=== PATIENT | male | born 1960 ===

== ENCOUNTER 2019-12-30 16:02 | Inpatient (IN) ==
[2019-12-30 22:04] LABS: BASOPHILS % (AUTO) 0.2 % (0.2-1.0); HEMATOCRIT 49.3 % (42.0-54.0); HEMOGLOBIN 16.1 g/dL (13.5-18.0); LYMPHOCYTES # (AUTO) 0.7 X10^3/uL (1.3-2.9); MEAN CORPUSCULAR HEMOGLOBIN 31.3 pg (27.0-34.0); MEAN CORPUSCULAR HGB CONC 32.6 g/dL (33.0-35.0); MEAN PLATELET VOLUME 11.2 fL (7.4-11.0); MONOCYTES # (AUTO) 1.4 x10^3/uL (0.3-0.8); MONOCYTES % (AUTO) 7.6 % (0.0-13.0); NEUTROPHILS # (AUTO) 15.9 x10^3/uL (2.2-4.8); NEUTROPHILS % (AUTO) 88.2 % (42.0-75.0); PLATELET COUNT 225 X10^3/uL (150.0-450.0); RED BLOOD COUNT 5.13 X10^6/uL (4.7-6.0); RED CELL DISTRIBUTION WIDTH 13.3 % (11.6-16.5); WHITE BLOOD COUNT 18.1 X10^3/uL (3.6-10.0)
[2019-12-30 22:20] LABS: ALANINE AMINOTRANSFERASE 29 Units/L (12-78); ALBUMIN 2.3 g/dL (3.4-5.0); ALKALINE PHOSPHATASE 79 Units/L (46-116); ASPARTATE AMINO TRANSFERASE 68 Units/L (15-37); BLOOD UREA NITROGEN 39 mg/dL (7-18); CALCIUM 9.4 mg/dL (8.5-10.1); CARBON DIOXIDE 34.4 mmol/L (21-32); COR CA(FOR HYPOALB) 10.8 mg/dL (8.5-10.1); COR NA(FOR HYPERGLY) 162 mmol/L (136-145); CREATININE 1.26 mg/dL (0.70-1.30); TOTAL PROTEIN 8.3 g/dL (6.4-8.2); eGFR NON BLACK RACES > 60 (>60)
[2019-12-30 22:22] LABS: SODIUM 161 mmol/L (136-145)
[2019-12-30 22:23] LABS: CHLORIDE 120 mmol/L (98-107)
[2019-12-30 23:15] VITALS: BMI 18.7
[2019-12-30] MEDS ORDERED: ROCEPHIN VIAL 1 GRAM ONE (23:40)
[2019-12-30] MEDS ORDERED: D5W 1000 ML IV 1,000 ML IV ONE (23:41)
[2019-12-30] MEDS ORDERED: ZOSYN VIAL 4.5 GRAMS IV ONE (23:41)
[2019-12-30] MEDS ORDERED: NS 100 ML IV + SPIKE MINIBAG* 100 ML IV ONE (23:41)
[2019-12-30] MEDS: ZOSYN VIAL 4.5 GRAMS 4.5 G in NS 100 ML IV + SPIKE MINIBAG* 100 ML IV SCH (23:45)
[2019-12-30] MEDS: ROCEPHIN VIAL 1 GRAM IM ONE (23:45)
[2019-12-30 23:53] LABS: ABG BASE EXCESS 11.4 mmol/L (-2.0-2.0)
[2019-12-30 23:54] LABS: ABG HCO3 36.5 mmol/L (22-26)
[2019-12-30] MEDS: DUONEB 0.5 MG/3 MG (3 mL) NEB SCH (23:55)
[2019-12-31] MEDS ORDERED: ROCEPHIN VIAL 1 GRAM 1 G in NS 100 ML IV + SPIKE MINIBAG* 100 ML IV SCH ×2
[2019-12-31] MEDS ORDERED: D5W 1000 ML IV 1,000 ML IV ONE
[2019-12-31 00:28] LABS: BILIRUBIN,URINE NEGATIVE (NEGATIVE); BLOOD/HEMOGLOBIN,URINE 2+ (NEGATIVE); GLUCOSE, URINE NEGATIVE (NEGATIVE); KETONES,URINE 1+ (NEGATIVE); LEUKOCYTE ESTERASE ,URINE NEGATIVE (NEGATIVE); NITRITES,URINE NEGATIVE (NEGATIVE); PROTEIN,URINE 2+ (NEGATIVE); UROBILINOGEN,URINE NORMAL (NORMAL)
[2019-12-31 00:38] LABS: APPEARANCE,URINE CLEAR (CLEAR); BACTERIA,URINE TRACE /HPF (NEGATIVE); COLOR,URINE YELLOW (YELLOW); RBC,URINE 0-2 /HPF (0-3); SQUAMOUS EPITHELIAL CELL,UR MODERATE /HPF (NEGATIVE)
--- NOTE | 2019-12-31 01:20 | CT ---
STUDY: CT HEAD WITHOUT IV CONTRASTCOMPARISON: NoneTECHNIQUE: axial images were acquired of the head without IV contrast. Coronal and sagittal images were provided. All images were reviewed in a variety of windows and levels.LIMITATIONS: Please note that CT has low sensitivity and accuracy for identifying acute infarction. In addition, there are portions of the brain that are affected by beam hardening artifact which further greatly limits identification of an acute infarct.RADIATION REDUCTION TECHNIQUE: Automated exposure control, Adjustment of the mA and/or kV according to patient size, or iterative reconstruction techniques were used.HISTORY: patient had a fall on 12/19 which resulted in a hematoma on his head, patient's behavior was affected resulting in sending the pt to the ED in [facility], CT was negative. Pt was placed on isolation to end 01/04/2020 due to "comm TRUNCATED ...FINDINGS: Exam is markedly limited due to patient motion.There is diffuse cerebral atrophy with a regional distribution of low attenuation along the periventricular white matter most likely representing small vessel ischemic changes which are to a degree that would be considered within normal limits for the patient's stated age.There is no definitive evidence of an acute intracranial bleed.There is no evidence of a mass or midline shift.There is no evidence of an extra-axial fluid collection.The randall-white matter differentiation is within normal limits.The visualized bones are grossly unremarkable.The visualized sinuses are clear.The mastoid air cells are well-aerated.IMPRESSION: Exam is markedly limited due to patient motion.1. INVOLUTIONAL CHANGES ARE PRESENT WITH FINDINGS SUGGESTING SMALL VESSEL ISCHEMIC DISEASE WHICH IS TO A DEGREE THAT WOULD BE CONSIDERED WITHIN NORMAL LIMITS FOR THE PATIENT'S STATED AGE.2. THERE IS NO DEFINITIVE EVIDENCE OF ACUTE INTRACRANIAL BLEED.Electronically signed by: Sumanth Wheatley (Dec 31, 2019 01:19:09)
[2019-12-31] MEDS: ROCEPHIN VIAL 1 GRAM IM ONE (01:25)
--- NOTE | 2019-12-31 01:25 | RAD ---
STUDY: KUBCOMPARISON: NoneHISTORY: NG TUBE PLACEMENTFINDINGS:The tip and side port of the enteric tube is seen above the diaphragm in the distal esophagus.IMPRESSION:The tip and side port of the enteric tube is seen above the diaphragm in the distal esophagus. Please consider further advancing the enteric tube in repeat radiograph for confirmation of positioning.Electronically signed by: Sumanth Wheatley (Dec 31, 2019 01:24:30)
[2019-12-31] MEDS: DUONEB 0.5 MG/3 MG (3 mL) NEB SCH ×5 (01:45→20:20)
[2019-12-31] MEDS: D5W 1000 ML IV 1,000 ML IV SCH ×2 (01:50→13:00)
--- NOTE | 2019-12-31 05:43 | RAD ---
STUDY: KUBCOMPARISON: NoneHISTORY: NG TUBE PLACEMENT (2)FINDINGS:The tip and side port of the enteric tube is seen below the diaphragm in the region of the stomach.IMPRESSION:THE TIP AND SIDE PORT OF THE ENTERIC TUBE IS IN THE REGION OF THE STOMACH.Electronically signed by: Sumanth Wheatley (Dec 31, 2019 05:42:01)
[2019-12-31] MEDS: ZOSYN VIAL 4.5 GRAMS 4.5 G in NS 100 ML IV + SPIKE MINIBAG* 100 ML IV SCH ×3 (05:51→23:00)
--- NOTE | 2019-12-31 06:11 | RAD ---
HISTORYCerebellar ataxiaSTUDYChest AP portableCOMPARISONNoneFINDINGSThere is a nasogastric tube with its tip in the distal esophagus. Advancement is recommended for optimal performance. The heart is within normal limits in size. The mariah are normal. The lungs are hyperinflated consistent with COPD. Interstitial lung changes and some peribronchial infiltrates are present in the retrocardiac area of the left lower lobe. No pleural effusions are identified. Bony thorax is unremarkable.IMPRESSIONNG tube tip in the distal esophagus. Advancement is recommendedHyperinflationLeft lower lobe infiltrateElectronically signed by: FLAVIO HENRY (Dec 31, 2019 06:10:16)
[2019-12-31] MEDS ORDERED: PHARMACY CONSULT LTC MEDICATIONS XX SCH (09:00)
[2019-12-31 09:21] LABS: BASOPHILS % (AUTO) 0.4 % (0.2-1.0); EOSINOPHILS % (AUTO) 0.1 % (0.9-2.9); HEMATOCRIT 47.6 % (42.0-54.0); HEMOGLOBIN 15.5 g/dL (13.5-18.0); LYMPHOCYTES # (AUTO) 0.9 X10^3/uL (1.3-2.9); LYMPHOCYTES % (AUTO) 6.1 % (21.0-51.0); MEAN CORPUSCULAR HEMOGLOBIN 31.5 pg (27.0-34.0); MEAN CORPUSCULAR HGB CONC 32.7 g/dL (33.0-35.0); MEAN CORPUSCULAR VOLUME 96.4 fL (80.0-100.0); MEAN PLATELET VOLUME 10.8 fL (7.4-11.0); MONOCYTES # (AUTO) 1.4 x10^3/uL (0.3-0.8); MONOCYTES % (AUTO) 10.1 % (0.0-13.0); NEUTROPHILS # (AUTO) 11.7 x10^3/uL (2.2-4.8); NEUTROPHILS % (AUTO) 83.3 % (42.0-75.0); PLATELET COUNT 175 X10^3/uL (150.0-450.0); RED BLOOD COUNT 4.93 X10^6/uL (4.7-6.0); RED CELL DISTRIBUTION WIDTH 13.2 % (11.6-16.5)
[2019-12-31 09:27] LABS: BLOOD UREA NITROGEN 34 mg/dL (7-18); CARBON DIOXIDE 37.6 mmol/L (21-32); COR NA(FOR HYPERGLY) 156 mmol/L (136-145); CREATININE 1.26 mg/dL (0.70-1.30); eGFR NON BLACK RACES > 60 (>60)
[2019-12-31 09:32] LABS: ALANINE AMINOTRANSFERASE 25 Units/L (12-78); ALBUMIN 2.1 g/dL (3.4-5.0); ALKALINE PHOSPHATASE 70 Units/L (46-116); ASPARTATE AMINO TRANSFERASE 56 Units/L (15-37); COR CA(FOR HYPOALB) 10.5 mg/dL (8.5-10.1); TOTAL PROTEIN 7.4 g/dL (6.4-8.2)
[2019-12-31 09:46] LABS: CHLORIDE 116 mmol/L (98-107); SODIUM 155 mmol/L (136-145)
--- NOTE | 2019-12-31 09:56 | RAD ---
HISTORYRE INSERTION OF NG TUBE. VERIFY PLACEMENTSTUDYKUBCOMPARISONNoneTECHNIQUEAbdomen KUB of the upper abdomen and chestFINDINGSNG tube in good position. Left lower lobe infiltrate again noted. Lung hyperexpansion.IMPRESSIONNG tube in good position.Electronically signed by: Mainor Mayers (Dec 31, 2019 09:55:20)
[2019-12-31] MEDS ORDERED: ZOLOFT PO ONE (17:34)
[2019-12-31] MEDS ORDERED: ATIVAN TAB 0.5 MG ONE (17:34)
[2019-12-31] MEDS ORDERED: OFIRMEV IV 1000 MG VIAL 1,000 MG/100 ML VIAL IV ONE (17:35)
--- NOTE | 2019-12-31 17:36 | DR.H&P ---
H&P - History & Physical for Day of: H&P Date: 12/30/19 - Chief Complaint Chief Complaint: AMS, DEHYDRATION - History of Present Illness History of Present Illness: PT IS 59BM DIRECT ADMIT FROM [place] WITH AMS, HYPERNATREMIA, PNEUMONIA FAILED OUTPT TREATMENT. PT HAD NEGATIVE COVID SWAB PRIOR TO THIS ADMISSION. PT HAD PMH OF CVA AND HYPERTENSION. PT NA WAS 160S ON OUTPT BASIS. PT ADMITTED TO ICU FOR ACUTE ILLNESS - Past Medical History Past Medical History: Anxiety, Arthritis, CVA, Hypertension - Social History Does patient currently use any type of tobacco product: No Have you used tobacco products in the last 12 months: No Type of Tobacco Use: None Does any household member use tobacco: No Alcohol Use: None Drug Use: None - Medications Home Medications: No Known Drug Allergies Allergy (Verified 12/30/19 16:19) CONTINUE taking the following medications azithromycin [Zithromax] 500 mg PO HS 12/30/19 [History] baclofen 10 mg PO TID 12/30/19 [History] buspirone 5 mg PO TID 12/30/19 [History] clonidine HCl 0.1 mg PO BID 12/30/19 [History] divalproex 500 mg PO TID 12/30/19 [History] fluoxetine 20 mg PO DAILY 12/30/19 [History] levofloxacin [Levaquin] 250 mg PO HS 12/30/19 [History] olanzapine 2.5 mg PO DAILY 12/30/19 [History] - Review of Systems Constitutional: Other (AMS) Eyes: No Symptoms Reported ENT: No Symptoms Reported Respiratory: Shortness of Breath Cardiovascular: No Symptoms Reported Gastrointestinal: Other (POOR PO INTAKE) Genitourinary: Incontinence Musculoskeletal: No Symptoms Reported Skin: No Symptoms Reported Neurological: Weakness, Confusion - Physical Exam Vital Signs: Temperature 98.4 F Pulse Rate [Brachial] 93 Pulse Rate 103 Respiratory Rate 39 Blood Pressure [Right Arm] 140/87 Blood Pressure 114/77 O2 Sat by Pulse Oximetry 91 Oriented: Not Oriented Eyes: Normal Ear: Normal Nose: Normal Throat: Dry Respiratory: Diminished Throughout Cardiovascular: Tachycardia : Normal Auscultation: Bowel Sounds: Normal Palpation: Normal Tenderness: Normal Skin: Decreased Turgur Musculoskeletal: Motor Deficit Speech Pattern: Aphasic - Assessment/Plan (1) Hyperosmolality and hypernatremia Status: Acute Plan: ADMIT, BC ON ADMISSION. CXR, CT HEAD, CE AND EKG ON ADMISSION. ABG, DW5, NG TUBE FOR WATER REPLACEMENT. WOLFE CATH, STRICT I&OS. SEIZURE PRECAUTIONS (2) AMS (altered mental status) Status: Acute (3) Pneumonia Status: Acute - Allergies Allergies/Adverse Reactions: Allergies Allergy/AdvReac Type Severity Reaction Status Date / Time No Known Drug Allergies Allergy Verified 12/30/19 16:19
[2019-12-31] MEDS: ZOLOFT PO SCH (17:45)
[2019-12-31] MEDS: ATIVAN TAB 0.5 MG PO PRN (17:46)
[2019-12-31] MEDS: OFIRMEV IV 1000 MG VIAL 1,000 MG/100 ML VIAL IV PRN (17:46)
[2019-12-31] MEDS: ROCEPHIN VIAL 1 GRAM 1 G in NS 100 ML IV + SPIKE MINIBAG* 100 ML IV SCH (22:09)
[2020-01-01] MEDS: D5W 1000 ML IV 1,000 ML IV SCH ×2 (01:42→19:00)
[2020-01-01] MEDS ORDERED: VISTARIL PO PRN (02:35)
[2020-01-01] MEDS ORDERED: VISTARIL PO ONE (02:37)
[2020-01-01 04:55] LABS: BASOPHILS % (AUTO) 0.1 % (0.2-1.0); EOSINOPHILS # (AUTO) 0.1 x10^3/uL (0.0-0.2); EOSINOPHILS % (AUTO) 0.5 % (0.9-2.9); HEMOGLOBIN 14.1 g/dL (13.5-18.0); LYMPHOCYTES # (AUTO) 1.1 X10^3/uL (1.3-2.9); LYMPHOCYTES % (AUTO) 8.3 % (21.0-51.0); MEAN CORPUSCULAR HEMOGLOBIN 31.4 pg (27.0-34.0); MEAN CORPUSCULAR HGB CONC 32.7 g/dL (33.0-35.0); MEAN CORPUSCULAR VOLUME 96.3 fL (80.0-100.0); MEAN PLATELET VOLUME 11.5 fL (7.4-11.0); MONOCYTES # (AUTO) 1.1 x10^3/uL (0.3-0.8); MONOCYTES % (AUTO) 8.4 % (0.0-13.0); NEUTROPHILS # (AUTO) 10.9 x10^3/uL (2.2-4.8); NEUTROPHILS % (AUTO) 82.7 % (42.0-75.0); PLATELET COUNT 155 X10^3/uL (150.0-450.0); RED BLOOD COUNT 4.47 X10^6/uL (4.7-6.0); RED CELL DISTRIBUTION WIDTH 12.9 % (11.6-16.5); WHITE BLOOD COUNT 13.2 X10^3/uL (3.6-10.0)
[2020-01-01 05:17] LABS: ALANINE AMINOTRANSFERASE 25 Units/L (12-78); ALBUMIN 1.9 g/dL (3.4-5.0); ALKALINE PHOSPHATASE 77 Units/L (46-116); ASPARTATE AMINO TRANSFERASE 45 Units/L (15-37); BLOOD UREA NITROGEN 23 mg/dL (7-18); CALCIUM 8.5 mg/dL (8.5-10.1); CARBON DIOXIDE 34.8 mmol/L (21-32); CHLORIDE 108 mmol/L (98-107); COR CA(FOR HYPOALB) 10.2 mg/dL (8.5-10.1); COR NA(FOR HYPERGLY) 146 mmol/L (136-145); SODIUM 146 mmol/L (136-145); TOTAL PROTEIN 6.8 g/dL (6.4-8.2); eGFR NON BLACK RACES > 60 (>60)
[2020-01-01] MEDS: ZOSYN VIAL 4.5 GRAMS 4.5 G in NS 100 ML IV + SPIKE MINIBAG* 100 ML IV SCH ×3 (05:27→21:02)
[2020-01-01] MEDS: ATIVAN TAB 0.5 MG PO PRN ×2 (05:35→21:02)
--- NOTE | 2020-01-01 07:30 | RAD ---
HISTORYPNEUMONIASTUDYCHEST, 1 [id number]/02/2020TECHNIQUEAP view of the chestFINDINGSNG tube courses below the visualized field of view. Cardiac and mediastinal contours are normal. Stable patchy left base opacity. No large pleural effusion or pneumothorax.IMPRESSIONNo significant change. Stable patchy left base opacity.Electronically signed by: Mainor Mayers (Jan 01, 2020 07:28:50)
[2020-01-01] MEDS: ZOLOFT PO SCH (08:02)
[2020-01-01] MEDS: PROzac PO SCH (08:40)
[2020-01-01] MEDS ORDERED: DEPAKOTE D.R. TAB PO SCH (09:00)
[2020-01-01] MEDS: DUONEB 0.5 MG/3 MG (3 mL) NEB SCH ×4 (09:15→21:09)
[2020-01-01] MEDS: PATIENT'S HOME MEDICATION PO SCH ×3 (11:00→21:02)
[2020-01-01] MEDS: BUSPAR PO SCH ×2 (14:00→21:02)
[2020-01-01] MEDS: LIORESAL PO SCH ×2 (14:00→21:02)
[2020-01-01] MEDS: ROCEPHIN VIAL 1 GRAM 1 G in NS 100 ML IV + SPIKE MINIBAG* 100 ML IV SCH (21:02)
[2020-01-02] MEDS: D5W 1000 ML IV 1,000 ML IV SCH ×3 (00:30→23:01)
[2020-01-02 04:45] LABS: BASOPHILS % (AUTO) 0.1 % (0.2-1.0); EOSINOPHILS % (AUTO) 0.3 % (0.9-2.9); HEMATOCRIT 42.1 % (42.0-54.0); LYMPHOCYTES # (AUTO) 0.8 X10^3/uL (1.3-2.9); LYMPHOCYTES % (AUTO) 5.4 % (21.0-51.0); MEAN CORPUSCULAR HEMOGLOBIN 31.9 pg (27.0-34.0); MEAN CORPUSCULAR HGB CONC 33.2 g/dL (33.0-35.0); MEAN PLATELET VOLUME 11.4 fL (7.4-11.0); MONOCYTES # (AUTO) 1.4 x10^3/uL (0.3-0.8); MONOCYTES % (AUTO) 9.1 % (0.0-13.0); NEUTROPHILS # (AUTO) 13.4 x10^3/uL (2.2-4.8); NEUTROPHILS % (AUTO) 85.1 % (42.0-75.0); PLATELET COUNT 145 X10^3/uL (150.0-450.0); RED BLOOD COUNT 4.38 X10^6/uL (4.7-6.0); RED CELL DISTRIBUTION WIDTH 13.2 % (11.6-16.5); WHITE BLOOD COUNT 15.8 X10^3/uL (3.6-10.0)
[2020-01-02 04:58] LABS: ALANINE AMINOTRANSFERASE 19 Units/L (12-78); ALBUMIN 1.6 g/dL (3.4-5.0); ALKALINE PHOSPHATASE 69 Units/L (46-116); ASPARTATE AMINO TRANSFERASE 27 Units/L (15-37); BLOOD UREA NITROGEN 11 mg/dL (7-18); CALCIUM 8.3 mg/dL (8.5-10.1); CARBON DIOXIDE 35.3 mmol/L (21-32); CHLORIDE 105 mmol/L (98-107); COR CA(FOR HYPOALB) 10.2 mg/dL (8.5-10.1); CREATININE 0.96 mg/dL (0.70-1.30); SODIUM 142 mmol/L (136-145); TOTAL PROTEIN 6.6 g/dL (6.4-8.2); eGFR NON BLACK RACES > 60 (>60)
[2020-01-02 05:16] LABS: ABG BASE EXCESS 10.4 mmol/L (-2.0-2.0)
[2020-01-02 05:17] LABS: ABG ALLEN TEST POS; ABG HCO3 35.1 mmol/L (22-26)
[2020-01-02] MEDS: LIORESAL PO SCH ×3 (05:44→23:01)
[2020-01-02] MEDS: BUSPAR PO SCH ×3 (05:44→23:01)
[2020-01-02] MEDS: ZOSYN VIAL 4.5 GRAMS 4.5 G in NS 100 ML IV + SPIKE MINIBAG* 100 ML IV SCH ×3 (05:45→23:01)
[2020-01-02] MEDS: PATIENT'S HOME MEDICATION PO SCH ×3 (05:45→23:01)
--- NOTE | 2020-01-02 06:06 | RAD ---
HISTORYFollow-up pneumoniaSTUDYChest AP [id number]/04/2020FINDINGSThere is a nasogastric tube coursing below the left hemidiaphragm . Its tip is not visible. The heart is within normal limits in size. The mariah are normal. The right l curtis and left upper lung roy are clear. Increasing left lower lobe infiltrate is noted. No pleural effusions are identified. Bony thorax is unremarkable.IMPRESSIONIncreasing left lower lobe infiltrate when compared with the prior examinationElectronically signed by: FLAVIO HENRY (Jan 02, 2020 06:05: 36)
[2020-01-02] MEDS: DUONEB 0.5 MG/3 MG (3 mL) NEB SCH ×4 (08:45→21:24)
[2020-01-02] MEDS: ZOLOFT PO SCH (09:58)
[2020-01-02] MEDS: PROzac PO SCH (09:58)
[2020-01-02] MEDS: ZITHROMAX INJ 500 MG VIAL 500 MG in D5W 250 ML IV 250 ML IV SCH (10:46)
--- NOTE | 2020-01-02 20:13 | RAD ---
HISTORYNG TUBE PLACEMENT CEREBELAR ATAXIA, [id number]/03/2020FINDINGSEvaluation of the abdomen demonstrates a normal bowel gas carlyle jay. No pathological soft tissue mass or calcification can be observed. The bony structures are lino ssly intact. There is a gastric tube in place with the tip seen along the proximal stomach.IMPRESSION Nonspecific gas pattern and a gastric tube in place with the tip in the proximal stomach.Electronical ly signed by: JAYY BURNETT (Jan 02, 2020 20:12:05)
--- NOTE | 2020-01-02 21:38 | RAD ---
HISTORYNG TUBE PLACEMENT CEREBELAR ATAXIA, [id number]/05/2020 at 7:41 a.m..FINDINGSEvaluation of the abdomen demonstrates a normal bowel gas pattern. No pathological soft tissue mass or calcification can be observed. The bony structures are grossly intact. There is a nasogastric tube in place with the distal portion the tube looped in the proximal stomach the tip in the fundus.IMPRESSIONGastric tube now looped in the proximal stomach with the tip along the fundus.Electronically signed by: JAYY BURNETT (Jan 02, 2020 21:36:56)
--- NOTE | 2020-01-02 22:27 | RAD ---
STUDY: KUBCOMPARISON: January 02, 2020HISTORY: NG TUBE PLACMENTFINDINGS:The tip of the enteric tube is seen coiled below the diaphragm in the region of the stomach.IMPRESSION:THE TIP OF THE ENTERIC TUBE IS IN THE REGION OF THE STOMACH.Electronically signed by: Sumanth Wheatley (Jan 02, 2020 22:26:24)
[2020-01-02] MEDS: ATIVAN TAB 0.5 MG PO PRN (23:01)
[2020-01-03 05:25] LABS: BASOPHILS % (AUTO) 0.2 % (0.2-1.0); EOSINOPHILS # (AUTO) 0.1 x10^3/uL (0.0-0.2); EOSINOPHILS % (AUTO) 0.4 % (0.9-2.9); HEMATOCRIT 41.7 % (42.0-54.0); HEMOGLOBIN 13.9 g/dL (13.5-18.0); LYMPHOCYTES # (AUTO) 0.6 X10^3/uL (1.3-2.9); LYMPHOCYTES % (AUTO) 4.5 % (21.0-51.0); MEAN CORPUSCULAR HEMOGLOBIN 31.3 pg (27.0-34.0); MEAN CORPUSCULAR HGB CONC 33.2 g/dL (33.0-35.0); MEAN CORPUSCULAR VOLUME 94.3 fL (80.0-100.0); MEAN PLATELET VOLUME 10.8 fL (7.4-11.0); MONOCYTES # (AUTO) 1.1 x10^3/uL (0.3-0.8); MONOCYTES % (AUTO) 8.1 % (0.0-13.0); NEUTROPHILS # (AUTO) 12.3 x10^3/uL (2.2-4.8); NEUTROPHILS % (AUTO) 86.8 % (42.0-75.0); PLATELET COUNT 166 X10^3/uL (150.0-450.0); RED BLOOD COUNT 4.42 X10^6/uL (4.7-6.0); RED CELL DISTRIBUTION WIDTH 12.9 % (11.6-16.5); WHITE BLOOD COUNT 14.2 X10^3/uL (3.6-10.0)
[2020-01-03 05:33] LABS: ALANINE AMINOTRANSFERASE 23 Units/L (12-78); ALBUMIN 1.5 g/dL (3.4-5.0); ALKALINE PHOSPHATASE 71 Units/L (46-116); ASPARTATE AMINO TRANSFERASE 32 Units/L (15-37); BLOOD UREA NITROGEN 12 mg/dL (7-18); CALCIUM 8.2 mg/dL (8.5-10.1); CARBON DIOXIDE 34.6 mmol/L (21-32); CHLORIDE 104 mmol/L (98-107); COR CA(FOR HYPOALB) 10.2 mg/dL (8.5-10.1); COR NA(FOR HYPERGLY) 141 mmol/L (136-145); CREATININE 0.85 mg/dL (0.70-1.30); SODIUM 141 mmol/L (136-145); TOTAL PROTEIN 6.5 g/dL (6.4-8.2); eGFR NON BLACK RACES > 60 (>60)
[2020-01-03] MEDS: ZOSYN VIAL 4.5 GRAMS 4.5 G in NS 100 ML IV + SPIKE MINIBAG* 100 ML IV SCH ×3 (06:16→21:58)
[2020-01-03] MEDS: BUSPAR PO SCH ×3 (06:16→21:57)
[2020-01-03] MEDS: LIORESAL PO SCH ×3 (06:16→21:57)
[2020-01-03] MEDS: PATIENT'S HOME MEDICATION PO SCH ×3 (06:16→21:57)
[2020-01-03] MEDS: D5W 1000 ML IV 1,000 ML IV SCH ×2 (06:17→15:56)
--- NOTE | 2020-01-03 07:45 | RAD ---
HISTORYPNEUMONIASTUDYCHEST, 1 [id number]/05/2020TECHNIQUEAP view of the chestFINDINGSCardiac and mediastinal contours appear normal. The NG tube is curled within the stomach. Stable left mid and lower lung airspace disease. No large pleural effusion. No pneumothorax.IMPRESSIONNo significant change.Electronically signed by: Mainor Mayers (Jan 03, 2020 07:44:14)
[2020-01-03] MEDS: ZOLOFT PO SCH (08:42)
[2020-01-03] MEDS: PROzac PO SCH (08:42)
[2020-01-03] MEDS: DUONEB 0.5 MG/3 MG (3 mL) NEB SCH ×4 (08:55→21:00)
[2020-01-03] MEDS: PULMICORT NEB TX 0.5 MG NEB SCH ×2 (08:55→21:00)
[2020-01-03] MEDS: OFIRMEV IV 1000 MG VIAL 1,000 MG/100 ML VIAL IV PRN (09:15)
[2020-01-03] MEDS: ZITHROMAX INJ 500 MG VIAL 500 MG in D5W 250 ML IV 250 ML IV SCH (09:45)
--- NOTE | 2020-01-03 18:41 | RAD ---
EXAM: ABDOMEN X-RAY (or KUB)HISTORY: Abdominal pain.TECHNIQUE: 1 viewCOMPARISON: None available.FINDINGS:Note: Exam degraded by patient rotation and partial exclusion of the left upper quadrant from [id number].A nasogastric tube is noted with the distal tip in the body of the stomach and the proximal sidehole at the gastroesophageal junction.Abundant fecal material is seen within the a distended rectum (partially imaged) which may represent constipation and possible fecal retention.Abundant air is seen within up to 6.5 cm dilated large bowel loops (proximal to the fecal column, which may represent obstipation and/or ileus.No gross organomegaly, free intraperitoneal air, or suspicious calcifications seen.IMPRESSION:1. A nasogastric tube is noted with the distal tip in the body of the stomach and the proximal sidehole at the gastroesophageal junction.2. Abundant fecal material is seen within the a distended rectum (partially imaged) which may represent constipation and possible fecal retention.3. Abundant air is seen within up to 6.5 cm dilated large bowel loops (proximal to the fecal column, which may represent obstipation and/or ileus.4. Recommend clinical correlation and appropriate followup evaluation (consider CT) as clinically warranted.Electronically signed by: Abundio Resendez (Jan 03, 2020 18:39:46)
[2020-01-03] MEDS: COLACE CAP 100 MG PO SCH (21:56)
[2020-01-04] MEDS: D5W 1000 ML IV 1,000 ML IV SCH (04:08)
[2020-01-04] MEDS: ZOSYN VIAL 4.5 GRAMS 4.5 G in NS 100 ML IV + SPIKE MINIBAG* 100 ML IV SCH ×3 (05:01→21:53)
[2020-01-04] MEDS: BUSPAR PO SCH (05:03)
[2020-01-04] MEDS: LIORESAL PO SCH (05:03)
[2020-01-04] MEDS: PATIENT'S HOME MEDICATION PO SCH (05:03)
[2020-01-04 06:07] LABS: BASOPHILS % (AUTO) 0.1 % (0.2-1.0); EOSINOPHILS # (AUTO) 0.1 x10^3/uL (0.0-0.2); EOSINOPHILS % (AUTO) 0.6 % (0.9-2.9); HEMATOCRIT 36.5 % (42.0-54.0); HEMOGLOBIN 12.3 g/dL (13.5-18.0); LYMPHOCYTES # (AUTO) 0.5 X10^3/uL (1.3-2.9); LYMPHOCYTES % (AUTO) 4.2 % (21.0-51.0); MEAN CORPUSCULAR HEMOGLOBIN 31.6 pg (27.0-34.0); MEAN CORPUSCULAR HGB CONC 33.8 g/dL (33.0-35.0); MEAN CORPUSCULAR VOLUME 93.5 fL (80.0-100.0); MONOCYTES # (AUTO) 1.2 x10^3/uL (0.3-0.8); MONOCYTES % (AUTO) 9.3 % (0.0-13.0); NEUTROPHILS # (AUTO) 10.9 x10^3/uL (2.2-4.8); NEUTROPHILS % (AUTO) 85.8 % (42.0-75.0); PLATELET COUNT 168 X10^3/uL (150.0-450.0); RED BLOOD COUNT 3.91 X10^6/uL (4.7-6.0); RED CELL DISTRIBUTION WIDTH 12.8 % (11.6-16.5); WHITE BLOOD COUNT 12.8 X10^3/uL (3.6-10.0)
[2020-01-04 06:20] LABS: ALANINE AMINOTRANSFERASE 22 Units/L (12-78); ALBUMIN 1.4 g/dL (3.4-5.0); ALKALINE PHOSPHATASE 65 Units/L (46-116); ASPARTATE AMINO TRANSFERASE 26 Units/L (15-37); BLOOD UREA NITROGEN 12 mg/dL (7-18); CALCIUM 8.1 mg/dL (8.5-10.1); CARBON DIOXIDE 35.5 mmol/L (21-32); CHLORIDE 104 mmol/L (98-107); COR CA(FOR HYPOALB) 10.2 mg/dL (8.5-10.1); CREATININE 0.84 mg/dL (0.70-1.30); MAGNESIUM 1.9 mg/dL (1.7-2.9); SODIUM 142 mmol/L (136-145); TOTAL PROTEIN 6.2 g/dL (6.4-8.2); eGFR NON BLACK RACES > 60 (>60)
[2020-01-04] MEDS: PULMICORT NEB TX 0.5 MG NEB SCH ×2 (08:34→21:20)
[2020-01-04] MEDS: DUONEB 0.5 MG/3 MG (3 mL) NEB SCH ×4 (08:34→21:20)
--- NOTE | 2020-01-04 09:00 | PCM.PROG ---
Progress Note Progress Note for Day of Date of Exam: 01/04/20 Subjective Subjective: Pt is a 59 y/o m admitted for AMS, hypernatremia, pneumonia, and dysphagia. Overnight patient removed NGT, will have it placed back this morning. No other acute concerns overnight. Labs/imaging: Wbc 14.2>12.8, Hgb 12.3, Plt 168, Na 142, K 3.5, Cr 0.84, Gluc 103. Pt is scheduled for PEG tube placement on Monday for continued dysphagia. Sodium levels have stabilized, continue D5w, home medications. Receiving antibiotics Zithromax and Zosyn. Will continue to monitor and follow up labs/imaging in the morning. Past Medical Family Social History Past Med/Fam/Surg Hx: No changes since H&P Allergies: Allergies No Known Drug Allergies Allergy (Verified 12/30/19 16:19) Review of Systems ROS: No change since H&P Vital Signs and I&O's Vital Signs: Temperature 97.9 F Pulse Rate [Brachial] 93 Pulse Rate 94 Respiratory Rate 18 Blood Pressure [Right Arm] 140/87 Blood Pressure 123/65 O2 Sat by Pulse Oximetry 94 Intake and Output: Intake & Output 01/01/20 01/02/20 01/03/20 01/04/20 23:59 23:59 23:59 23:59 Intake Total 2204 / 2204 3200 / 3200 1760 / 1760 500 / 500 Output Total 1175 / 1175 2275 / 2275 1050 / 1050 600 / 600 Balance 1029 / 1029 925 / 925 710 / 710 -100 / -100 Physical Exam Oriented: Not Oriented Eyes: Normal Ear: Normal Nose: Normal Throat: Dry Respiratory: Diminished Cardiovascular: Tachycardia : Normal Auscultation: Bowel Sounds: Normal Tenderness: Normal Skin: Decreased Turgur Musculoskeletal: Motor Deficit Speech Pattern: Unclear Laboratory and Diagnostics Result Diagrams: 01/04/20 05:10 01/04/20 05:10 Labs: 12/31/19 00:07 Urine,Clean Catch Urine Culture - Final 12/30/19 23:40 Blood Blood Culture - Preliminary 12/30/19 23:32 Blood Blood Culture - Preliminary Laboratory WBC 12.8 X10^3/uL (3.6-10.0) H 01/04/20 05:10 RBC 3.91 X10^6/uL (4.7-6.0) L 01/04/20 05:10 Hgb 12.3 g/dL (13.5-18.0) L 01/04/20 05:10 Hct 36.5 % (42.0-54.0) L 01/04/20 05:10 MCV 93.5 fL (80.0-100.0) 01/04/20 05:10 MCH 31.6 pg (27.0-34.0) 01/04/20 05:10 MCHC 33.8 g/dL (33.0-35.0) 01/04/20 05:10 RDW 12.8 % (11.6-16.5) 01/04/20 05:10 Plt Count 168 X10^3/uL (150.0-450.0) 01/04/20 05:10 MPV 11.0 fL (7.4-11.0) 01/04/20 05:10 Neut % (Auto) 85.8 % (42.0-75.0) H 01/04/20 05:10 Lymph % (Auto) 4.2 % (21.0-51.0) L 01/04/20 05:10 [place] % (Auto) 9.3 % (0.0-13.0) 01/04/20 05:10 Eos % (Auto) 0.6 % (0.9-2.9) L 01/04/20 05:10 Baso % (Auto) 0.1 % (0.2-1.0) L 01/04/20 05:10 Neut # (Auto) 10.9 x10^3/uL (2.2-4.8) H 01/04/20 05:10 Lymph # (Auto) 0.5 X10^3/uL (1.3-2.9) L 01/04/20 05:10 [place] # (Auto) 1.2 x10^3/uL (0.3-0.8) H 01/04/20 05:10 Eos # (Auto) 0.1 x10^3/uL (0.0-0.2) 01/04/20 05:10 Baso # (Auto) 0.0 X10^3/uL (0.0-0.1) 01/04/20 05:10 Absolute Nucleated RBC 0.0 /100WBC 01/04/20 05:10 Sample Site Rr 01/02/20 05:00 ABG pH 7.490 (7.35-7.45) H 01/02/20 05:00 ABG pCO2 46.0 mmHg (35.0-45.0) H 01/02/20 05:00 ABG pO2 70.0 mmHg (80.0-100.0) L 01/02/20 05:00 ABG HCO3 35.1 mmol/L (22-26) H* 01/02/20 05:00 ABG O2 Saturation 95.0 % (90-100) 01/02/20 05:00 ABG Base Excess 10.4 mmol/L (-2.0-2.0) H 01/02/20 05:00 [place]ole Test Pos 01/02/20 05:00 A-a Gradient 101.0 mmHg 01/02/20 05:00 FiO2 32.0 01/02/20 05:00 Blood Gas Comments Rosalba well sw 01/02/20 05:00 Sodium 142 mmol/L (136-145) 01/04/20 05:10 Corrected Sodium TNP 01/04/20 05:10 Potassium 3.5 mmol/L (3.5-5.1) 01/04/20 05:10 Chloride 104 mmol/L (98-107) 01/04/20 05:10 Carbon Dioxide 35.5 mmol/L (21-32) H 01/04/20 05:10 BUN 12 mg/dL (7-18) 01/04/20 05:10 Creatinine 0.84 mg/dL (0.70-1.30) 01/04/20 05:10 Est GFR (MDRD) Af Amer > 60 (>60) 01/04/20 05:10 Est GFR (MDRD) Non-Af > 60 (>60) 01/04/20 05:10 Glucose 103 mg/dL (65-99) H 01/04/20 05:10 Lactic Acid 2.0 mmol/L (0.4-2.0) 01/02/20 08:51 Calcium 8.1 mg/dL (8.5-10.1) L 01/04/20 05:10 Corrected Calcium 10.2 mg/dL (8.5-10.1) H 01/04/20 05:10 Magnesium 1.9 mg/dL (1.7-2.9) 01/04/20 05:10 Ferritin 1777 ng/mL (26-388) H 01/02/20 04:20 Total Bilirubin 0.30 mg/dL (0.2-1.0) 01/04/20 05:10 AST 26 Units/L (15-37) 01/04/20 05:10 ALT 22 Units/L (12-78) 01/04/20 05:10 Alkaline Phosphatase 65 Units/L (46-116) 01/04/20 05:10 Ammonia 15 umol/L (11-32) 12/30/19 23:32 C-Reactive Protein 186.60 mg/L (0-3.0) H 01/02/20 04:20 Total Protein 6.2 g/dL (6.4-8.2) L 01/04/20 05:10 Albumin 1.4 g/dL (3.4-5.0) L 01/04/20 05:10 Globulin 4.8 g/dL (2.5-4.5) H 01/04/20 05:10 Albumin/Globulin Ratio 0.3 Ratio (1.1-2.1) L 01/04/20 05:10 Specimen Type Catherized urine 12/31/19 00:07 Urine Color Yellow (YELLOW) 12/31/19 00:07 Urine Appearance Clear (CLEAR) 12/31/19 00:07 Urine pH 5.0 (5.0 - 8.0) 12/31/19 00:07 Ur Specific [place] 1.020 (1.000-1.030) 12/31/19 00:07 Urine Protein 2+ (NEGATIVE) 12/31/19 00:07 Urine Glucose (UA) Negative (NEGATIVE) 12/31/19 00:07 Urine Ketones 1+ (NEGATIVE) 12/31/19 00:07 Urine Occult Blood 2+ (NEGATIVE) 12/31/19 00:07 Urine Nitrite Negative (NEGATIVE) 12/31/19 00:07 Urine Bilirubin Negative (NEGATIVE) 12/31/19 00:07 Urine Urobilinogen Normal (NORMAL) 12/31/19 00:07 Ur Leukocyte Esterase Negative (NEGATIVE) 12/31/19 00:07 Urine RBC 0-2 /HPF (0-3) 12/31/19 00:07 Urine WBC 0-2 /HPF (0-5) 12/31/19 00:07 Ur Squamous Epith Cells Moderate /HPF (NEGATIVE) 12/31/19 00:07 Urine Bacteria Trace /HPF (NEGATIVE) 12/31/19 00:07 Ur Culture Indicated? No/not indicated 12/31/19 00:07 SARS-CoV-2 (PCR) Negative (NEGATIVE) 01/02/20 09:35 Plan (1) Hyperosmolality and hypernatremia: Status: Acute Plan: DW5, NG TUBE FOR WATER REPLACEMENT WOLFE CATH, STRICT I&OS SEIZURE PRECAUTIONS (2) AMS (altered mental status): Status: Acute (3) Pneumonia: Status: Acute
[2020-01-04] MEDS: ZITHROMAX INJ 500 MG VIAL 500 MG in D5W 250 ML IV 250 ML IV SCH (09:34)
[2020-01-04] MEDS ORDERED: D5W 250 ML IV 250 ML IV ONE (09:46)
[2020-01-04] MEDS ORDERED: POTASSIUM CHL 60 MEQ/NS 0.45% 500 ML IV PRN (10:34)
[2020-01-04] MEDS ORDERED: POTASSIUM CHLORIDE LIQ 20 MEQ UDC PO PRN (10:34)
[2020-01-04] MEDS ORDERED: MICRO K EXTEN CAP 10 MEQ PO PRN (10:34)
[2020-01-04] MEDS ORDERED: POTASSIUM CHL 40 MEQ/NS 0.45% 500 ML IV PRN (10:34)
[2020-01-04] MEDS ORDERED: K-DUR TAB 20 MEQ PO PRN (10:34)
[2020-01-04] MEDS ORDERED: KLOR-CON PO PRN (10:34)
[2020-01-04] MEDS: PROzac PO SCH (10:37)
[2020-01-04] MEDS: ZOLOFT PO SCH (10:37)
[2020-01-04] MEDS: K-RIDER 10 MEQ/NS 100 ML 10 MEQ/100 ML BAG IV PRN ×2 (13:32→14:37)
[2020-01-04] MEDS: ATIVAN INJ 2 MG VIAL IVP SCH (21:40)
[2020-01-05] MEDS: D5W 1000 ML IV 1,000 ML IV SCH ×3 (05:03→21:52)
[2020-01-05] MEDS: ZOSYN VIAL 4.5 GRAMS 4.5 G in NS 100 ML IV + SPIKE MINIBAG* 100 ML IV SCH ×3 (05:04→21:52)
[2020-01-05 06:06] LABS: BASOPHILS % (AUTO) 0.4 % (0.2-1.0); EOSINOPHILS # (AUTO) 0.2 x10^3/uL (0.0-0.2); EOSINOPHILS % (AUTO) 1.9 % (0.9-2.9); HEMATOCRIT 36.3 % (42.0-54.0); HEMOGLOBIN 12.2 g/dL (13.5-18.0); LYMPHOCYTES # (AUTO) 0.8 X10^3/uL (1.3-2.9); LYMPHOCYTES % (AUTO) 8.8 % (21.0-51.0); MEAN CORPUSCULAR HEMOGLOBIN 31.6 pg (27.0-34.0); MEAN CORPUSCULAR HGB CONC 33.7 g/dL (33.0-35.0); MEAN CORPUSCULAR VOLUME 93.9 fL (80.0-100.0); MEAN PLATELET VOLUME 11.6 fL (7.4-11.0); MONOCYTES # (AUTO) 1.1 x10^3/uL (0.3-0.8); MONOCYTES % (AUTO) 12.6 % (0.0-13.0); NEUTROPHILS % (AUTO) 76.3 % (42.0-75.0); PLATELET COUNT 174 X10^3/uL (150.0-450.0); RED BLOOD COUNT 3.87 X10^6/uL (4.7-6.0); RED CELL DISTRIBUTION WIDTH 12.9 % (11.6-16.5); WHITE BLOOD COUNT 9.1 X10^3/uL (3.6-10.0)
[2020-01-05 06:25] LABS: ALANINE AMINOTRANSFERASE 18 Units/L (12-78); ALBUMIN 1.3 g/dL (3.4-5.0); ALKALINE PHOSPHATASE 65 Units/L (46-116); ASPARTATE AMINO TRANSFERASE 30 Units/L (15-37); BLOOD UREA NITROGEN 15 mg/dL (7-18); CALCIUM 8.2 mg/dL (8.5-10.1); CARBON DIOXIDE 30.9 mmol/L (21-32); CHLORIDE 104 mmol/L (98-107); COR CA(FOR HYPOALB) 10.4 mg/dL (8.5-10.1); CREATININE 0.81 mg/dL (0.70-1.30); SODIUM 139 mmol/L (136-145); TOTAL PROTEIN 6.1 g/dL (6.4-8.2); eGFR NON BLACK RACES > 60 (>60)
[2020-01-05] MEDS: DUONEB 0.5 MG/3 MG (3 mL) NEB SCH ×4 (08:25→20:59)
[2020-01-05] MEDS: PULMICORT NEB TX 0.5 MG NEB SCH ×2 (08:25→20:59)
[2020-01-05] MEDS: ZITHROMAX INJ 500 MG VIAL 500 MG in D5W 250 ML IV 250 ML IV SCH (08:59)
--- NOTE | 2020-01-05 10:22 | PCM.PROG ---
Progress Note Progress Note for Day of Date of Exam: 01/05/20 Subjective Subjective: Pt is a 59 y/o m admitted for AMS, hypernatremia, pneumonia, and dysphagia. Yesterday, was unable to get replace NG tube due to pt agitation and removal by patient multiple times. Changed medications to be given IV until PEG tube placement that is scheduled for Monday for continued dysphagia. He is currently also receiving IVF. No other acute concerns or events overnight. Labs/imaging: Wbc 12.8>9.1, Hgb 12.2, Plt 174, Na 139, K 4.1, Cr 0.81, Gluc 91. Sodium levels are stabilized, continue D5w, home medications, antibiotics: Zithromax and Zosyn. Will continue to monitor and follow up labs/imaging in the morning. Past Medical Family Social History Past Med/Fam/Surg Hx: No changes since H&P Allergies: Allergies No Known Drug Allergies Allergy (Verified 12/30/19 16:19) Review of Systems ROS: No change since H&P Vital Signs and I&O's Vital Signs: Temperature 98.0 F Pulse Rate [Brachial] 93 Pulse Rate 71 Respiratory Rate 20 Blood Pressure [Right Arm] 140/87 Blood Pressure 117/65 O2 Sat by Pulse Oximetry 96 Intake and Output: Intake & Output 01/02/20 01/03/20 01/04/20 01/05/20 23:59 23:59 23:59 23:59 Intake Total 3200 / 3200 1760 / 1760 4297 / 4297 450 / 450 Output Total 2275 / 2275 1050 / 1050 1275 / 1275 125 / 125 Balance 925 / 925 710 / 710 3022 / 3022 325 / 325 Physical Exam Oriented: Not Oriented Eyes: Normal Ear: Normal Nose: Normal Throat: Dry Respiratory: Diminished Cardiovascular: Normal : Normal Auscultation: Bowel Sounds: Normal Tenderness: Normal Skin: Decreased Turgur Musculoskeletal: Motor Deficit Speech Pattern: Unclear Laboratory and Diagnostics Result Diagrams: 01/05/20 05:18 01/05/20 05:18 Labs: 12/30/19 23:40 Blood Blood Culture - Final 12/30/19 23:32 Blood Blood Culture - Final 12/31/19 00:07 Urine,Clean Catch Urine Culture - Final Laboratory WBC 9.1 X10^3/uL (3.6-10.0) 01/05/20 05:18 RBC 3.87 X10^6/uL (4.7-6.0) L 01/05/20 05:18 Hgb 12.2 g/dL (13.5-18.0) L 01/05/20 05:18 Hct 36.3 % (42.0-54.0) L 01/05/20 05:18 MCV 93.9 fL (80.0-100.0) 01/05/20 05:18 MCH 31.6 pg (27.0-34.0) 01/05/20 05:18 MCHC 33.7 g/dL (33.0-35.0) 01/05/20 05:18 RDW 12.9 % (11.6-16.5) 01/05/20 05:18 Plt Count 174 X10^3/uL (150.0-450.0) 01/05/20 05:18 MPV 11.6 fL (7.4-11.0) H 01/05/20 05:18 Neut % (Auto) 76.3 % (42.0-75.0) H 01/05/20 05:18 Lymph % (Auto) 8.8 % (21.0-51.0) L 01/05/20 05:18 [place] % (Auto) 12.6 % (0.0-13.0) 01/05/20 05:18 Eos % (Auto) 1.9 % (0.9-2.9) 01/05/20 05:18 Baso % (Auto) 0.4 % (0.2-1.0) 01/05/20 05:18 Neut # (Auto) 7.0 x10^3/uL (2.2-4.8) H 01/05/20 05:18 Lymph # (Auto) 0.8 X10^3/uL (1.3-2.9) L 01/05/20 05:18 [place] # (Auto) 1.1 x10^3/uL (0.3-0.8) H 01/05/20 05:18 Eos # (Auto) 0.2 x10^3/uL (0.0-0.2) 01/05/20 05:18 Baso # (Auto) 0.0 X10^3/uL (0.0-0.1) 01/05/20 05:18 Absolute Nucleated RBC 0.1 /100WBC 01/05/20 05:18 Sample Site Rr 01/02/20 05:00 ABG pH 7.490 (7.35-7.45) H 01/02/20 05:00 ABG pCO2 46.0 mmHg (35.0-45.0) H 01/02/20 05:00 ABG pO2 70.0 mmHg (80.0-100.0) L 01/02/20 05:00 ABG HCO3 35.1 mmol/L (22-26) H* 01/02/20 05:00 ABG O2 Saturation 95.0 % (90-100) 01/02/20 05:00 ABG Base Excess 10.4 mmol/L (-2.0-2.0) H 01/02/20 05:00 Kole Test Pos 01/02/20 05:00 A-a Gradient 101.0 mmHg 01/02/20 05:00 FiO2 32.0 01/02/20 05:00 Blood Gas Comments Rosalba well sw 01/02/20 05:00 Sodium 139 mmol/L (136-145) 01/05/20 05:18 Corrected Sodium TNP 01/05/20 05:18 Potassium 4.1 mmol/L (3.5-5.1) 01/05/20 05:18 Chloride 104 mmol/L (98-107) 01/05/20 05:18 Carbon Dioxide 30.9 mmol/L (21-32) 01/05/20 05:18 BUN 15 mg/dL (7-18) 01/05/20 05:18 Creatinine 0.81 mg/dL (0.70-1.30) 01/05/20 05:18 Est GFR (MDRD) Af Amer > 60 (>60) 01/05/20 05:18 Est GFR (MDRD) Non-Af > 60 (>60) 01/05/20 05:18 Glucose 91 mg/dL (65-99) 01/05/20 05:18 Lactic Acid 2.0 mmol/L (0.4-2.0) 01/02/20 08:51 Calcium 8.2 mg/dL (8.5-10.1) L 01/05/20 05:18 Corrected Calcium 10.4 mg/dL (8.5-10.1) H 01/05/20 05:18 Magnesium 1.9 mg/dL (1.7-2.9) 01/04/20 05:10 Ferritin 1777 ng/mL (26-388) H 01/02/20 04:20 Total Bilirubin 0.30 mg/dL (0.2-1.0) 01/05/20 05:18 AST 30 Units/L (15-37) 01/05/20 05:18 ALT 18 Units/L (12-78) 01/05/20 05:18 Alkaline Phosphatase 65 Units/L (46-116) 01/05/20 05:18 Ammonia 15 umol/L (11-32) 12/30/19 23:32 C-Reactive Protein 186.60 mg/L (0-3.0) H 01/02/20 04:20 Total Protein 6.1 g/dL (6.4-8.2) L 01/05/20 05:18 Albumin 1.3 g/dL (3.4-5.0) L 01/05/20 05:18 Globulin 4.8 g/dL (2.5-4.5) H 01/05/20 05:18 Albumin/Globulin Ratio 0.3 Ratio (1.1-2.1) L 01/05/20 05:18 Specimen Type Catherized urine 12/31/19 00:07 Urine Color Yellow (YELLOW) 12/31/19 00:07 Urine Appearance Clear (CLEAR) 12/31/19 00:07 Urine pH 5.0 (5.0 - 8.0) 12/31/19 00:07 Ur Specific [place] 1.020 (1.000-1.030) 12/31/19 00:07 Urine Protein 2+ (NEGATIVE) 12/31/19 00:07 Urine Glucose (UA) Negative (NEGATIVE) 12/31/19 00:07 Urine Ketones 1+ (NEGATIVE) 12/31/19 00:07 Urine Occult Blood 2+ (NEGATIVE) 12/31/19 00:07 Urine Nitrite Negative (NEGATIVE) 12/31/19 00:07 Urine Bilirubin Negative (NEGATIVE) 12/31/19 00:07 Urine Urobilinogen Normal (NORMAL) 12/31/19 00:07 Ur Leukocyte Esterase Negative (NEGATIVE) 11/03/20 00:07 Urine RBC 0-2 /HPF (0-3) 12/31/19 00:07 Urine WBC 0-2 /HPF (0-5) 12/31/19 00:07 Ur Squamous Epith Cells Moderate /HPF (NEGATIVE) 12/31/19 00:07 Urine Bacteria Trace /HPF (NEGATIVE) 12/31/19 00:07 Ur Culture Indicated? No/not indicated 12/31/19 00:07 SARS-CoV-2 (PCR) Negative (NEGATIVE) 01/02/20 09:35 Plan (1) Hyperosmolality and hypernatremia: Status: Acute Plan: DW5, WOLFE CATH, STRICT I&OS SEIZURE PRECAUTIONS (2) AMS (altered mental status): Status: Acute (3) Pneumonia: Status: Acute
[2020-01-05] MEDS: ATIVAN INJ 2 MG VIAL IVP SCH ×2 (13:43→23:15)
[2020-01-06] MEDS: ZOSYN VIAL 4.5 GRAMS 4.5 G in NS 100 ML IV + SPIKE MINIBAG* 100 ML IV SCH ×3 (05:14→21:51)
[2020-01-06 06:26] LABS: BASOPHILS % (AUTO) 0.3 % (0.2-1.0); EOSINOPHILS # (AUTO) 0.2 x10^3/uL (0.0-0.2); EOSINOPHILS % (AUTO) 2.5 % (0.9-2.9); HEMATOCRIT 39.3 % (42.0-54.0); HEMOGLOBIN 13.5 g/dL (13.5-18.0); LYMPHOCYTES # (AUTO) 0.6 X10^3/uL (1.3-2.9); LYMPHOCYTES % (AUTO) 8.4 % (21.0-51.0); MEAN CORPUSCULAR HEMOGLOBIN 31.7 pg (27.0-34.0); MEAN CORPUSCULAR HGB CONC 34.4 g/dL (33.0-35.0); MEAN CORPUSCULAR VOLUME 92.3 fL (80.0-100.0); MEAN PLATELET VOLUME 10.4 fL (7.4-11.0); MONOCYTES # (AUTO) 0.5 x10^3/uL (0.3-0.8); NEUTROPHILS # (AUTO) 5.8 x10^3/uL (2.2-4.8); NEUTROPHILS % (AUTO) 81.8 % (42.0-75.0); PLATELET COUNT 202 X10^3/uL (150.0-450.0); RED BLOOD COUNT 4.25 X10^6/uL (4.7-6.0); RED CELL DISTRIBUTION WIDTH 12.9 % (11.6-16.5); WHITE BLOOD COUNT 7.1 X10^3/uL (3.6-10.0)
[2020-01-06 06:39] LABS: ALANINE AMINOTRANSFERASE 31 Units/L (12-78); ALBUMIN 1.5 g/dL (3.4-5.0); ALKALINE PHOSPHATASE 70 Units/L (46-116); ASPARTATE AMINO TRANSFERASE 40 Units/L (15-37); BLOOD UREA NITROGEN 11 mg/dL (7-18); CALCIUM 8.4 mg/dL (8.5-10.1); CHLORIDE 103 mmol/L (98-107); COR CA(FOR HYPOALB) 10.4 mg/dL (8.5-10.1); CREATININE 0.78 mg/dL (0.70-1.30); SODIUM 139 mmol/L (136-145); TOTAL PROTEIN 6.6 g/dL (6.4-8.2); eGFR NON BLACK RACES > 60 (>60)
[2020-01-06] MEDS: D5W 1000 ML IV 1,000 ML IV SCH (09:04)
[2020-01-06] MEDS: ATIVAN INJ 2 MG VIAL IVP SCH ×2 (09:05→20:57)
[2020-01-06] MEDS: ZITHROMAX INJ 500 MG VIAL 500 MG in D5W 250 ML IV 250 ML IV SCH (09:06)
[2020-01-06] MEDS: PULMICORT NEB TX 0.5 MG NEB SCH ×2 (09:14→21:12)
[2020-01-06] MEDS: DUONEB 0.5 MG/3 MG (3 mL) NEB SCH ×4 (09:14→21:12)
--- NOTE | 2020-01-06 09:19 | RAD ---
HISTORYFollow-up pneumoniaSTUDYChest AP [id number]/06/2020FINDINGSNasogastric tube is no longer present. The heart is within normal limits in size. The mariah are normal. Left perihilar infiltrate is unchanged. There may be a small ri ght medial basal lung infiltrate now present. Remainder of the lung roy are clear.IMPRESSIONNo dat nge left perihilar infiltrateSuggestion of a new right medial basal lung infiltrateElectronically sig klever by: FLAVIO HENRY (Jan 06, 2020 09:17:42)
[2020-01-06] MEDS ORDERED: NS 1000 ML 1,000 ML ONE (15:59)
[2020-01-06] MEDS ORDERED: DIPRIVAN VIAL 20 ML ONE (16:05)
[2020-01-06] MEDS: BUSPAR PO SCH ×2 (16:36→21:50)
[2020-01-06] MEDS: PATIENT'S HOME MEDICATION PO SCH ×2 (16:37→21:50)
[2020-01-06] MEDS: LIORESAL PO SCH ×2 (16:37→21:50)
[2020-01-06] MEDS: COLACE CAP 100 MG PO SCH (20:53)
[2020-01-07] MEDS: D5W 1000 ML IV 1,000 ML IV SCH ×4 (03:31→23:20)
[2020-01-07] MEDS: PATIENT'S HOME MEDICATION PO SCH ×3 (05:30→21:00)
[2020-01-07] MEDS: LIORESAL PO SCH ×3 (05:30→21:00)
[2020-01-07] MEDS: BUSPAR PO SCH ×3 (05:30→21:00)
[2020-01-07] MEDS: ZOSYN VIAL 4.5 GRAMS 4.5 G in NS 100 ML IV + SPIKE MINIBAG* 100 ML IV SCH ×3 (05:30→22:00)
[2020-01-07 06:04] LABS: BASOPHILS % (AUTO) 0.3 % (0.2-1.0); EOSINOPHILS # (AUTO) 0.2 x10^3/uL (0.0-0.2); EOSINOPHILS % (AUTO) 1.8 % (0.9-2.9); HEMATOCRIT 39.1 % (42.0-54.0); HEMOGLOBIN 13.6 g/dL (13.5-18.0); LYMPHOCYTES # (AUTO) 0.6 X10^3/uL (1.3-2.9); LYMPHOCYTES % (AUTO) 6.1 % (21.0-51.0); MEAN CORPUSCULAR HEMOGLOBIN 31.9 pg (27.0-34.0); MEAN CORPUSCULAR HGB CONC 34.8 g/dL (33.0-35.0); MEAN CORPUSCULAR VOLUME 91.6 fL (80.0-100.0); MEAN PLATELET VOLUME 9.8 fL (7.4-11.0); MONOCYTES # (AUTO) 0.5 x10^3/uL (0.3-0.8); NEUTROPHILS # (AUTO) 8.4 x10^3/uL (2.2-4.8); NEUTROPHILS % (AUTO) 86.8 % (42.0-75.0); PLATELET COUNT 268 X10^3/uL (150.0-450.0); RED BLOOD COUNT 4.27 X10^6/uL (4.7-6.0); RED CELL DISTRIBUTION WIDTH 12.8 % (11.6-16.5); WHITE BLOOD COUNT 9.6 X10^3/uL (3.6-10.0)
[2020-01-07 06:20] LABS: ALANINE AMINOTRANSFERASE 32 Units/L (12-78); ALBUMIN 1.6 g/dL (3.4-5.0); ALKALINE PHOSPHATASE 70 Units/L (46-116); ASPARTATE AMINO TRANSFERASE 32 Units/L (15-37); BLOOD UREA NITROGEN 9 mg/dL (7-18); CALCIUM 8.3 mg/dL (8.5-10.1); CARBON DIOXIDE 29.3 mmol/L (21-32); CHLORIDE 104 mmol/L (98-107); COR CA(FOR HYPOALB) 10.2 mg/dL (8.5-10.1); CREATININE 0.79 mg/dL (0.70-1.30); SODIUM 139 mmol/L (136-145); TOTAL PROTEIN 6.8 g/dL (6.4-8.2); eGFR NON BLACK RACES > 60 (>60)
[2020-01-07] MEDS: DUONEB 0.5 MG/3 MG (3 mL) NEB SCH ×4 (09:40→21:15)
[2020-01-07] MEDS: PULMICORT NEB TX 0.5 MG NEB SCH ×2 (09:40→21:15)
--- NOTE | 2020-01-07 10:07 | DR.PROGNOT ---
Hospital Progress Notes - Progress Note for Day of: Progress Note Date: 01/07/20 - Chief Complaint Chief Complaint: s/p EGD and placement of PEG feeding tube .. doing fairly well . no nausea or vomiting . no leakage around the tube . afebrile . - Past Medical Family Social History Past Med/Fam/Surg Hx: No changes since H&P Allergies: Allergies No Known Drug Allergies Allergy (Verified 12/30/19 16:19) - Review Of Systems ROS: No change since H&P - Vital Signs Vital Signs: Temperature 98.4 F Pulse Rate [Brachial] 93 Pulse Rate 78 Respiratory Rate 18 Blood Pressure [Right Arm] 140/87 Blood Pressure 122/76 O2 Sat by Pulse Oximetry 97 - Physical Exam Oriented: Not Oriented Eyes: Normal Ear: Normal Nose: Normal Throat: Dry Respiratory: Diminished Cardiovascular: Normal : Normal GI:Auscultation: Normal GI:Palpation: Normal (soft abdomen . PEG tube in place . no infection or leakage . BS+) GI: Tenderness: Normal Skin: Decreased Turgur Musculoskeletal: Motor Deficit Speech Pattern: Unclear - Laboratory and Diagnostics Result Diagrams: 01/07/20 05:30 01/07/20 05:30 Labs: 12/30/19 23:40 Blood Blood Culture - Final 12/30/19 23:32 Blood Blood Culture - Final 12/31/19 00:07 Urine,Clean Catch Urine Culture - Final Laboratory WBC 9.6 X10^3/uL (3.6-10.0) 01/07/20 05:30 RBC 4.27 X10^6/uL (4.7-6.0) L 01/07/20 05:30 Hgb 13.6 g/dL (13.5-18.0) 01/07/20 05:30 Hct 39.1 % (42.0-54.0) L 01/07/20 05:30 MCV 91.6 fL (80.0-100.0) 01/07/20 05:30 MCH 31.9 pg (27.0-34.0) 01/07/20 05:30 MCHC 34.8 g/dL (33.0-35.0) 01/07/20 05:30 RDW 12.8 % (11.6-16.5) 01/07/20 05:30 Plt Count 268 X10^3/uL (150.0-450.0) 01/07/20 05:30 MPV 9.8 fL (7.4-11.0) 01/07/20 05:30 Neut % (Auto) 86.8 % (42.0-75.0) H 01/07/20 05:30 Lymph % (Auto) 6.1 % (21.0-51.0) L 01/07/20 05:30 [place] % (Auto) 5.0 % (0.0-13.0) 01/07/20 05:30 Eos % (Auto) 1.8 % (0.9-2.9) 01/07/20 05:30 Baso % (Auto) 0.3 % (0.2-1.0) 01/07/20 05:30 Neut # (Auto) 8.4 x10^3/uL (2.2-4.8) H 01/07/20 05:30 Lymph # (Auto) 0.6 X10^3/uL (1.3-2.9) L 01/07/20 05:30 [place] # (Auto) 0.5 x10^3/uL (0.3-0.8) 01/07/20 05:30 Eos # (Auto) 0.2 x10^3/uL (0.0-0.2) 01/07/20 05:30 Baso # (Auto) 0.0 X10^3/uL (0.0-0.1) 01/07/20 05:30 Absolute Nucleated RBC 0.0 /100WBC 01/07/20 05:30 Sample Site Rr 01/02/20 05:00 ABG pH 7.490 (7.35-7.45) H 01/02/20 05:00 ABG pCO2 46.0 mmHg (35.0-45.0) H 01/02/20 05:00 ABG pO2 70.0 mmHg (80.0-100.0) L 01/02/20 05:00 ABG HCO3 35.1 mmol/L (22-26) H* 01/02/20 05:00 ABG O2 Saturation 95.0 % (90-100) 01/02/20 05:00 ABG Base Excess 10.4 mmol/L (-2.0-2.0) H 01/02/20 05:00 Kole Test Pos 01/02/20 05:00 A-a Gradient 101.0 mmHg 01/02/20 05:00 FiO2 32.0 01/02/20 05:00 Blood Gas Comments Rosalba well sw 01/02/20 05:00 Sodium 139 mmol/L (136-145) 01/07/20 05:30 Corrected Sodium TNP 01/07/20 05:30 Potassium 3.8 mmol/L (3.5-5.1) 01/07/20 05:30 Chloride 104 mmol/L (98-107) 01/07/20 05:30 Carbon Dioxide 29.3 mmol/L (21-32) 01/07/20 05:30 BUN 9 mg/dL (7-18) 01/07/20 05:30 Creatinine 0.79 mg/dL (0.70-1.30) 01/07/20 05:30 Est GFR (MDRD) Af Amer > 60 (>60) 01/07/20 05:30 Est GFR (MDRD) Non-Af > 60 (>60) 01/07/20 05:30 Glucose 95 mg/dL (65-99) 01/07/20 05:30 Lactic Acid 2.0 mmol/L (0.4-2.0) 01/02/20 08:51 Calcium 8.3 mg/dL (8.5-10.1) L 01/07/20 05:30 Corrected Calcium 10.2 mg/dL (8.5-10.1) H 01/07/20 05:30 Magnesium 1.9 mg/dL (1.7-2.9) 01/04/20 05:10 Ferritin 1777 ng/mL (26-388) H 01/02/20 04:20 Total Bilirubin 0.30 mg/dL (0.2-1.0) 01/07/20 05:30 AST 32 Units/L (15-37) 01/07/20 05:30 ALT 32 Units/L (12-78) 01/07/20 05:30 Alkaline Phosphatase 70 Units/L (46-116) 01/07/20 05:30 Ammonia 15 umol/L (11-32) 12/30/19 23:32 C-Reactive Protein 186.60 mg/L (0-3.0) H 01/02/20 04:20 Total Protein 6.8 g/dL (6.4-8.2) 01/07/20 05:30 Albumin 1.6 g/dL (3.4-5.0) L 01/07/20 05:30 Globulin 5.2 g/dL (2.5-4.5) H 01/07/20 05:30 Albumin/Globulin Ratio 0.3 Ratio (1.1-2.1) L 01/07/20 05:30 Specimen Type Catherized urine 12/31/19 00:07 Urine Color Yellow (YELLOW) 12/31/19 00:07 Urine Appearance Clear (CLEAR) 12/31/19 00:07 Urine pH 5.0 (5.0 - 8.0) 12/31/19 00:07 Ur Specific [place] 1.020 (1.000-1.030) 12/31/19 00:07 Urine Protein 2+ (NEGATIVE) 12/31/19 00:07 Urine Glucose (UA) Negative (NEGATIVE) 12/31/19 00:07 Urine Ketones 1+ (NEGATIVE) 12/31/19 00:07 Urine Occult Blood 2+ (NEGATIVE) 12/31/19 00:07 Urine Nitrite Negative (NEGATIVE) 12/31/19 00:07 Urine Bilirubin Negative (NEGATIVE) 12/31/19 00:07 Urine Urobilinogen Normal (NORMAL) 12/31/19 00:07 Ur Leukocyte Esterase Negative (NEGATIVE) 12/31/19 00:07 Urine RBC 0-2 /HPF (0-3) 12/31/19 00:07 Urine WBC 0-2 /HPF (0-5) 12/31/19 00:07 Ur Squamous Epith Cells Moderate /HPF (NEGATIVE) 12/31/19 00:07 Urine Bacteria Trace /HPF (NEGATIVE) 12/31/19 00:07 Ur Culture Indicated? No/not indicated 12/31/19 00:07 SARS-CoV-2 (PCR) Negative (NEGATIVE) 01/02/20 09:35 - Assessment and Plan 1: SW/P EGD and placement of PEG feeding tube . to start feeding 30 cc of 1/2 s Ensure .. if tolerated will advance to regular bolus feeding .. - Problem Patient Problems: Patient Problems AMS (altered mental status) (Acute) R41.82 Hyperosmolality and hypernatremia (Acute) E87.0 Pneumonia (Acute) J18.9
[2020-01-07] MEDS: ZITHROMAX INJ 500 MG VIAL 500 MG in D5W 250 ML IV 250 ML IV SCH (11:13)
[2020-01-07] MEDS: PROzac PO SCH (11:27)
[2020-01-07] MEDS: ZOLOFT PO SCH (11:27)
[2020-01-07] MEDS: ATIVAN INJ 2 MG VIAL IVP PRN (15:37)
[2020-01-07] MEDS: COLACE CAP 100 MG PO SCH (20:44)
[2020-01-08] MEDS: ATIVAN INJ 2 MG VIAL IVP PRN ×2 (02:30→21:43)
[2020-01-08] MEDS ORDERED: ULTRAM PO PRN (04:27)
[2020-01-08] MEDS ORDERED: ULTRAM ONE (05:33)
[2020-01-08] MEDS: PATIENT'S HOME MEDICATION PO SCH ×3 (06:38→21:49)
[2020-01-08] MEDS: LIORESAL PO SCH ×3 (06:38→21:49)
[2020-01-08] MEDS: BUSPAR PO SCH ×3 (06:38→21:49)
[2020-01-08] MEDS: ZOSYN VIAL 4.5 GRAMS 4.5 G in NS 100 ML IV + SPIKE MINIBAG* 100 ML IV SCH ×3 (06:38→21:49)
[2020-01-08] MEDS: DUONEB 0.5 MG/3 MG (3 mL) NEB SCH ×4 (09:11→20:25)
[2020-01-08] MEDS: PULMICORT NEB TX 0.5 MG NEB SCH ×2 (09:11→20:25)
[2020-01-08] MEDS: PROzac PO SCH (10:05)
[2020-01-08] MEDS: ZITHROMAX INJ 500 MG VIAL 500 MG in D5W 250 ML IV 250 ML IV SCH (10:05)
[2020-01-08] MEDS: ZOLOFT PO SCH (10:05)
--- NOTE | 2020-01-08 11:02 | RAD ---
HISTORYFollow-up pneumoniaSTUDYChest AP [id number]/09/2020FINDINGSThe heart is within normal limits in size. The mariah are normal. Left perihilar infiltrate is unchanged. There is increasing density in the retrocardiac area of the left lower lobe which could be on the basis of effusion, developing infiltrate or atelectasis. A small medial basal infiltrate is present on the right unchanged from the prior examination. Bony thorax is unremarkable.IMPRESSIONNo change left perihilar or right medial basal lung infiltratesIncreasing density retrocardiac area of the left lower lobe which may indicate pleural fluid, infiltrate, atelectasis or combination.Electronically signed by: FLAVIO HENRY (Jan 08, 2020 11:01:35)
[2020-01-08] MEDS: D5W 1000 ML IV 1,000 ML IV SCH ×2 (12:37→16:11)
--- NOTE | 2020-01-08 16:18 | DR.PROGNOT ---
Hospital Progress Notes - Progress Note for Day of: Progress Note Date: 01/08/20 - Chief Complaint Chief Complaint: tolerating tube feeding . no nausea or vomiting . no leakage around the tube . afebrile . - Past Medical Family Social History Past Med/Fam/Surg Hx: No changes since H&P Allergies: Allergies No Known Drug Allergies Allergy (Verified 12/30/19 16:19) - Review Of Systems ROS: No change since H&P - Vital Signs Vital Signs: Temperature 97.5 F Pulse Rate [Brachial] 72 Pulse Rate 75 Respiratory Rate 18 Blood Pressure [Right Arm] 97/58 Blood Pressure 128/74 O2 Sat by Pulse Oximetry 99 - Physical Exam Oriented: Not Oriented Eyes: Normal Ear: Normal Nose: Normal Throat: Dry Respiratory: Diminished Cardiovascular: Normal : Normal GI:Auscultation: Normal GI:Palpation: Normal (soft abdomen . PEG tube in place . no infection or leakage . BS+) GI: Tenderness: Normal Skin: Decreased Turgur Musculoskeletal: Motor Deficit Speech Pattern: Unclear - Laboratory and Diagnostics Result Diagrams: 01/07/20 05:30 01/07/20 05:30 Labs: 12/30/19 23:40 Blood Blood Culture - Final 12/30/19 23:32 Blood Blood Culture - Final 12/31/19 00:07 Urine,Clean Catch Urine Culture - Final Laboratory WBC 9.6 X10^3/uL (3.6-10.0) 01/07/20 05:30 RBC 4.27 X10^6/uL (4.7-6.0) L 01/07/20 05:30 Hgb 13.6 g/dL (13.5-18.0) 01/07/20 05:30 Hct 39.1 % (42.0-54.0) L 01/07/20 05:30 MCV 91.6 fL (80.0-100.0) 01/07/20 05:30 MCH 31.9 pg (27.0-34.0) 01/07/20 05:30 MCHC 34.8 g/dL (33.0-35.0) 01/07/20 05:30 RDW 12.8 % (11.6-16.5) 01/07/20 05:30 Plt Count 268 X10^3/uL (150.0-450.0) 01/07/20 05:30 MPV 9.8 fL (7.4-11.0) 01/07/20 05:30 Neut % (Auto) 86.8 % (42.0-75.0) H 01/07/20 05:30 Lymph % (Auto) 6.1 % (21.0-51.0) L 01/07/20 05:30 [place] % (Auto) 5.0 % (0.0-13.0) 01/07/20 05:30 Eos % (Auto) 1.8 % (0.9-2.9) 01/07/20 05:30 Baso % (Auto) 0.3 % (0.2-1.0) 01/07/20 05:30 Neut # (Auto) 8.4 x10^3/uL (2.2-4.8) H 01/07/20 05:30 Lymph # (Auto) 0.6 X10^3/uL (1.3-2.9) L 01/07/20 05:30 [place] # (Auto) 0.5 x10^3/uL (0.3-0.8) 01/07/20 05:30 Eos # (Auto) 0.2 x10^3/uL (0.0-0.2) 01/07/20 05:30 Baso # (Auto) 0.0 X10^3/uL (0.0-0.1) 01/07/20 05:30 Absolute Nucleated RBC 0.0 /100WBC 01/07/20 05:30 Sample Site Rr 01/02/20 05:00 ABG pH 7.490 (7.35-7.45) H 01/02/20 05:00 ABG pCO2 46.0 mmHg (35.0-45.0) H 01/02/20 05:00 ABG pO2 70.0 mmHg (80.0-100.0) L 01/02/20 05:00 ABG HCO3 35.1 mmol/L (22-26) H* 01/02/20 05:00 ABG O2 Saturation 95.0 % (90-100) 01/02/20 05:00 ABG Base Excess 10.4 mmol/L (-2.0-2.0) H 01/02/20 05:00 [place] Test Pos 01/02/20 05:00 A-a Gradient 101.0 mmHg 01/02/20 05:00 FiO2 32.0 01/02/20 05:00 Blood Gas Comments Rosalba well sw 01/02/20 05:00 Sodium 139 mmol/L (136-145) 01/07/20 05:30 Corrected Sodium TNP 01/07/20 05:30 Potassium 3.8 mmol/L (3.5-5.1) 01/07/20 05:30 Chloride 104 mmol/L (98-107) 01/07/20 05:30 Carbon Dioxide 29.3 mmol/L (21-32) 01/07/20 05:30 BUN 9 mg/dL (7-18) 01/07/20 05:30 Creatinine 0.79 mg/dL (0.70-1.30) 01/07/20 05:30 Est GFR (MDRD) Af Amer > 60 (>60) 01/07/20 05:30 Est GFR (MDRD) Non-Af > 60 (>60) 01/07/20 05:30 Glucose 95 mg/dL (65-99) 01/07/20 05:30 Lactic Acid 2.0 mmol/L (0.4-2.0) 01/02/20 08:51 Calcium 8.3 mg/dL (8.5-10.1) L 01/07/20 05:30 Corrected Calcium 10.2 mg/dL (8.5-10.1) H 01/07/20 05:30 Magnesium 1.9 mg/dL (1.7-2.9) 01/04/20 05:10 Ferritin 1777 ng/mL (26-388) H 01/02/20 04:20 Total Bilirubin 0.30 mg/dL (0.2-1.0) 01/07/20 05:30 AST 32 Units/L (15-37) 01/07/20 05:30 ALT 32 Units/L (12-78) 01/07/20 05:30 Alkaline Phosphatase 70 Units/L (46-116) 01/07/20 05:30 Ammonia 15 umol/L (11-32) 12/30/19 23:32 C-Reactive Protein 186.60 mg/L (0-3.0) H 01/02/20 04:20 Total Protein 6.8 g/dL (6.4-8.2) 01/07/20 05:30 Albumin 1.6 g/dL (3.4-5.0) L 01/07/20 05:30 Globulin 5.2 g/dL (2.5-4.5) H 01/07/20 05:30 Albumin/Globulin Ratio 0.3 Ratio (1.1-2.1) L 01/07/20 05:30 Specimen Type Catherized urine 12/31/19 00:07 Urine Color Yellow (YELLOW) 12/31/19 00:07 Urine Appearance Clear (CLEAR) 12/31/19 00:07 Urine pH 5.0 (5.0 - 8.0) 12/31/19 00:07 Ur Specific [place] 1.020 (1.000-1.030) 12/31/19 00:07 Urine Protein 2+ (NEGATIVE) 12/31/19 00:07 Urine Glucose (UA) Negative (NEGATIVE) 12/31/19 00:07 Urine Ketones 1+ (NEGATIVE) 12/31/19 00:07 Urine Occult Blood 2+ (NEGATIVE) 12/31/19 00:07 Urine Nitrite Negative (NEGATIVE) 12/31/19 00:07 Urine Bilirubin Negative (NEGATIVE) 12/31/19 00:07 Urine Urobilinogen Normal (NORMAL) 12/31/19 00:07 Ur Leukocyte Esterase Negative (NEGATIVE) 12/31/19 00:07 Urine RBC 0-2 /HPF (0-3) 12/31/19 00:07 Urine WBC 0-2 /HPF (0-5) 12/31/19 00:07 Ur Squamous Epith Cells Moderate /HPF (NEGATIVE) 12/31/19 00:07 Urine Bacteria Trace /HPF (NEGATIVE) 12/31/19 00:07 Ur Culture Indicated? No/not indicated 12/31/19 00:07 SARS-CoV-2 (PCR) Negative (NEGATIVE) 01/02/20 09:35 - Assessment and Plan 1: S/P EGD and placement of PEG feeding tube . to advance feeding to full strength at 50cc/h. Pt could be discharged with bolus feeding when medically stable . - Problem Patient Problems: Patient Problems AMS (altered mental status) (Acute) R41.82 Hyperosmolality and hypernatremia (Acute) E87.0 Pneumonia (Acute) J18.9
[2020-01-08] MEDS: LASIX IVP SCH (16:21)
[2020-01-08] MEDS: COLACE CAP 100 MG PO SCH (21:48)
[2020-01-09 06:17] LABS: BASOPHILS % (AUTO) 0.3 % (0.2-1.0); EOSINOPHILS # (AUTO) 0.2 x10^3/uL (0.0-0.2); EOSINOPHILS % (AUTO) 2.4 % (0.9-2.9); HEMATOCRIT 35.1 % (42.0-54.0); HEMOGLOBIN 12.1 g/dL (13.5-18.0); LYMPHOCYTES # (AUTO) 0.9 X10^3/uL (1.3-2.9); LYMPHOCYTES % (AUTO) 8.5 % (21.0-51.0); MEAN CORPUSCULAR HEMOGLOBIN 31.5 pg (27.0-34.0); MEAN CORPUSCULAR HGB CONC 34.4 g/dL (33.0-35.0); MEAN CORPUSCULAR VOLUME 91.7 fL (80.0-100.0); MEAN PLATELET VOLUME 9.2 fL (7.4-11.0); MONOCYTES # (AUTO) 0.6 x10^3/uL (0.3-0.8); MONOCYTES % (AUTO) 5.9 % (0.0-13.0); NEUTROPHILS # (AUTO) 8.6 x10^3/uL (2.2-4.8); NEUTROPHILS % (AUTO) 82.9 % (42.0-75.0); PLATELET COUNT 309 X10^3/uL (150.0-450.0); RED BLOOD COUNT 3.82 X10^6/uL (4.7-6.0); WHITE BLOOD COUNT 10.4 X10^3/uL (3.6-10.0)
[2020-01-09] MEDS: BUSPAR PO SCH ×2 (06:19→14:15)
[2020-01-09] MEDS: LIORESAL PO SCH ×2 (06:20→14:15)
[2020-01-09] MEDS: PATIENT'S HOME MEDICATION PO SCH ×2 (06:20→14:16)
[2020-01-09] MEDS: ZOSYN VIAL 4.5 GRAMS 4.5 G in NS 100 ML IV + SPIKE MINIBAG* 100 ML IV SCH ×3 (06:20→23:06)
[2020-01-09 06:44] LABS: ALANINE AMINOTRANSFERASE 29 Units/L (12-78); ALBUMIN 1.4 g/dL (3.4-5.0); ALKALINE PHOSPHATASE 69 Units/L (46-116); ASPARTATE AMINO TRANSFERASE 21 Units/L (15-37); BLOOD UREA NITROGEN 11 mg/dL (7-18); CALCIUM 8.3 mg/dL (8.5-10.1); CHLORIDE 103 mmol/L (98-107); COR CA(FOR HYPOALB) 10.4 mg/dL (8.5-10.1); CREATININE 0.71 mg/dL (0.70-1.30); SODIUM 139 mmol/L (136-145); TOTAL PROTEIN 6.3 g/dL (6.4-8.2); eGFR NON BLACK RACES > 60 (>60)
[2020-01-09] MEDS: PULMICORT NEB TX 0.5 MG NEB SCH ×2 (09:15→21:00)
[2020-01-09] MEDS: DUONEB 0.5 MG/3 MG (3 mL) NEB SCH ×4 (09:15→21:00)
[2020-01-09] MEDS ORDERED: LASIX ONE (10:22)
[2020-01-09] MEDS: LASIX IVP SCH (10:26)
[2020-01-09] MEDS: ZOLOFT PO SCH (10:26)
[2020-01-09] MEDS: PROzac PO SCH (10:26)
[2020-01-09] MEDS: ZITHROMAX INJ 500 MG VIAL 500 MG in D5W 250 ML IV 250 ML IV SCH (10:27)
--- NOTE | 2020-01-09 11:19 | RAD ---
HISTORYPNEUMONIASTUDYCHEST x-ray, 1 VIEWCOMPARISONX-ray 01/08/2020FINDINGSLikely worsening of right upper lobe infiltrate. Infiltrate in the left midlung is similar to prior study. Possible underlying COPD. Heart is normal in size. No pneumothorax or pleural effusion is seen.IMPRESSIONLikely bilateral pneumonia with worsening of pneumonia in the right lung apex.Electronically signed by: Marshall Mchugh (Jan 09, 2020 11:18:04)
[2020-01-09] MEDS: ATIVAN INJ 2 MG VIAL IVP PRN ×2 (12:23→22:38)
[2020-01-09] MEDS: D5W 1000 ML IV 1,000 ML IV SCH ×2 (14:15→23:06)
--- NOTE | 2020-01-09 23:29 | RAD ---
HISTORYPEG TUBE PLACEMENT CEREBELAR ATAXIA, [id number]/06/2020FINDINGSA percutaneous gastrostomy tube projects over the mid upper ab domen. There is extraluminal contrast outlining the bowel loops in the left and lower abdomen, compat ible with extravasated contrast.IMPRESSIONExtraluminal contrast within the left and lower abdomen con cerning for malpositioning of the percutaneous gastrostomy tube.Electronically signed by: Barb marinelli (Jan 09, 2020 23:27:58)
--- NOTE | 2020-01-10 00:49 | RAD ---
HISTORYPEG TUBE PLACEMENT (2) CEREBELAR ATAXIA, [id number]/12/2020FINDINGSPercutaneous gastrostomy tube again seen in the mid upper abdo men. There appears to be extraluminal contrast in the left abdomen. No convincing evidence of contras t within the gastric lumen.IMPRESSIONNo convincing contrast within the gastric lumen. Extraluminal co ntrast in the left abdomen. Findings are concerning for malpositioning of the percutaneous gastrostom y tube.Electronically signed by: Barb Hammonds (Jan 10, 2020 00:47:51)
[2020-01-10] MEDS: COLACE CAP 100 MG PO SCH (01:11)
[2020-01-10] MEDS: LIORESAL PO SCH ×2 (01:12→05:30)
[2020-01-10] MEDS: BUSPAR PO SCH ×2 (01:12→05:30)
[2020-01-10] MEDS: PATIENT'S HOME MEDICATION PO SCH ×2 (01:12→05:30)
[2020-01-10] MEDS: ZOSYN VIAL 4.5 GRAMS 4.5 G in NS 100 ML IV + SPIKE MINIBAG* 100 ML IV SCH ×3 (05:30→21:08)
[2020-01-10 07:05] LABS: BASOPHILS # (AUTO) 0.1 X10^3/uL (0.0-0.1); BASOPHILS % (AUTO) 0.6 % (0.2-1.0); EOSINOPHILS # (AUTO) 0.1 x10^3/uL (0.0-0.2); HEMATOCRIT 39.5 % (42.0-54.0); HEMOGLOBIN 13.4 g/dL (13.5-18.0); LYMPHOCYTES # (AUTO) 0.8 X10^3/uL (1.3-2.9); LYMPHOCYTES % (AUTO) 8.8 % (21.0-51.0); MEAN CORPUSCULAR HEMOGLOBIN 31.6 pg (27.0-34.0); MEAN CORPUSCULAR HGB CONC 34.1 g/dL (33.0-35.0); MEAN CORPUSCULAR VOLUME 92.8 fL (80.0-100.0); MEAN PLATELET VOLUME 9.4 fL (7.4-11.0); MONOCYTES # (AUTO) 0.3 x10^3/uL (0.3-0.8); MONOCYTES % (AUTO) 3.5 % (0.0-13.0); NEUTROPHILS # (AUTO) 7.7 x10^3/uL (2.2-4.8); NEUTROPHILS % (AUTO) 86.1 % (42.0-75.0); PLATELET COUNT 349 X10^3/uL (150.0-450.0); RED BLOOD COUNT 4.25 X10^6/uL (4.7-6.0); RED CELL DISTRIBUTION WIDTH 12.9 % (11.6-16.5)
[2020-01-10 07:37] LABS: ALANINE AMINOTRANSFERASE 27 Units/L (12-78); ALBUMIN 1.7 g/dL (3.4-5.0); ALKALINE PHOSPHATASE 76 Units/L (46-116); ASPARTATE AMINO TRANSFERASE 32 Units/L (15-37); BLOOD UREA NITROGEN 11 mg/dL (7-18); CALCIUM 8.7 mg/dL (8.5-10.1); CHLORIDE 101 mmol/L (98-107); COR CA(FOR HYPOALB) 10.5 mg/dL (8.5-10.1); CREATININE 0.83 mg/dL (0.70-1.30); SODIUM 139 mmol/L (136-145); TOTAL PROTEIN 7.5 g/dL (6.4-8.2); eGFR NON BLACK RACES > 60 (>60)
[2020-01-10] MEDS: DUONEB 0.5 MG/3 MG (3 mL) NEB SCH ×4 (08:57→20:25)
[2020-01-10] MEDS: PULMICORT NEB TX 0.5 MG NEB SCH ×2 (08:57→20:25)
[2020-01-10] MEDS: ZITHROMAX INJ 500 MG VIAL 500 MG in D5W 250 ML IV 250 ML IV SCH (09:20)
--- NOTE | 2020-01-10 10:30 | RAD ---
HISTORYPNEUMONIASTUDYCHEST x-ray, 1 VIEWCOMPARISONX-ray 01/09/2020FINDINGSBilateral lung infiltrates are similar to prior study. Heart is normal in size. No pleural effusion or pneumothorax is seen.IMPRESSIONBilateral pneumonia is similar to prior study.Electronically signed by: Marshall Mchugh (Jan 10, 2020 10:28:32)
[2020-01-10] MEDS ORDERED: NS 1000 ML 1,000 ML ONE (10:41)
[2020-01-10] MEDS ORDERED: DIPRIVAN VIAL 20 ML ONE (10:49)
[2020-01-10] MEDS ORDERED: XYLOCAINE 2 % (PLAIN) ONE (10:49)
[2020-01-10] MEDS: PROzac PO SCH (12:22)
[2020-01-10] MEDS: ZOLOFT PO SCH (12:23)
[2020-01-10] MEDS: ATIVAN INJ 2 MG VIAL IVP PRN ×2 (12:55→21:49)
--- NOTE | 2020-01-10 13:31 | DR.UPDATE ---
H&P Update History and Physical Update: History and Physical reviewed and patient examined. Changes noted: NO Yes with the following: H&P Reviewed: Yes Patient was examined?: Yes Procedures (ALL) - Central Line Placement PCM.CLCO: verbal consent Time out performed: Yes Patient placed pm monitor/pulse ox: Yes MD prep: mask, gown, gloves, other Centrial line prep: chlorhexidine scrub, sterile drapes applied Local anesthsia used: lidocane 1% Ultrasound used for placement: Yes (right ij id'd) Central line lumen ininserted: triple Post procedure: sutured in place, good blood return, all ports aspirated, flushed,capped, sterile dressing applied Post procedure xray: tip oc catheter in good position, no pneumothorax seen Patient tolerated procedure: Yes Complications: none
--- NOTE | 2020-01-10 13:49 | RAD ---
HISTORYCENTRAL LINE PLACEMENTSTUDYCHEST, 1 [id number]/13/2020TECHNIQUEAP view of the chestFINDINGSCardiac and mediastinal contours are stable. Patient is rotated. No significant change in bilateral scattered airspace disease. No large pleural effusion. There is a deep sulcus sign on the right. Right IJ central line in good position.IMPRESSIONSuspicion for a small right pneumothorax. Consider repeat chest radiograph with less rotation versus CT for confirmation.Electronically signed by: Mainor Mayers (Jan 10, 2020 13:47:18)
[2020-01-10] MEDS ORDERED: PHARMACY CONSULT - TPN XX SCH (15:00)
[2020-01-10] MEDS: TRACE ELEMENTS IV SCH ×6 (15:35→20:57)
[2020-01-10] MEDS: MVI IV SCH ×6 (15:35→20:57)
[2020-01-10] MEDS: CLINIMIX IV SCH ×6 (15:35→20:57)
[2020-01-10] MEDS: D5W 1000 ML IV 1,000 ML IV SCH (15:41)
[2020-01-11] MEDS: ZOSYN VIAL 4.5 GRAMS 4.5 G in NS 100 ML IV + SPIKE MINIBAG* 100 ML IV SCH ×3 (05:22→21:01)
[2020-01-11 06:03] LABS: BASOPHILS # (AUTO) 0.1 X10^3/uL (0.0-0.1); BASOPHILS % (AUTO) 0.5 % (0.2-1.0); EOSINOPHILS # (AUTO) 0.1 x10^3/uL (0.0-0.2); EOSINOPHILS % (AUTO) 0.8 % (0.9-2.9); HEMATOCRIT 34.9 % (42.0-54.0); HEMOGLOBIN 11.8 g/dL (13.5-18.0); LYMPHOCYTES # (AUTO) 0.5 X10^3/uL (1.3-2.9); LYMPHOCYTES % (AUTO) 4.1 % (21.0-51.0); MEAN CORPUSCULAR HEMOGLOBIN 31.5 pg (27.0-34.0); MEAN CORPUSCULAR HGB CONC 33.8 g/dL (33.0-35.0); MEAN CORPUSCULAR VOLUME 93.3 fL (80.0-100.0); MEAN PLATELET VOLUME 9.6 fL (7.4-11.0); MONOCYTES # (AUTO) 0.5 x10^3/uL (0.3-0.8); MONOCYTES % (AUTO) 4.4 % (0.0-13.0); NEUTROPHILS # (AUTO) 10.2 x10^3/uL (2.2-4.8); NEUTROPHILS % (AUTO) 90.2 % (42.0-75.0); PLATELET COUNT 299 X10^3/uL (150.0-450.0); RED BLOOD COUNT 3.74 X10^6/uL (4.7-6.0); RED CELL DISTRIBUTION WIDTH 13.1 % (11.6-16.5); WHITE BLOOD COUNT 11.3 X10^3/uL (3.6-10.0)
[2020-01-11 06:10] LABS: PREALBUMIN 11.4 mg/dL (18-35.7)
[2020-01-11 06:19] LABS: PLATELET MORPHOLOGY COMMENT NORMAL (NORMAL)
[2020-01-11 06:22] LABS: ALANINE AMINOTRANSFERASE 19 Units/L (12-78); ALBUMIN 1.5 g/dL (3.4-5.0); ALKALINE PHOSPHATASE 65 Units/L (46-116); ASPARTATE AMINO TRANSFERASE 27 Units/L (15-37); BLOOD UREA NITROGEN 14 mg/dL (7-18); CALCIUM 8.4 mg/dL (8.5-10.1); CARBON DIOXIDE 30.1 mmol/L (21-32); CHLORIDE 102 mmol/L (98-107); COR CA(FOR HYPOALB) 10.4 mg/dL (8.5-10.1); CREATININE 0.74 mg/dL (0.70-1.30); MAGNESIUM 1.7 mg/dL (1.7-2.9); PHOSPHORUS 2.6 mg/dL (2.6-4.7); SODIUM 138 mmol/L (136-145); TOTAL PROTEIN 6.8 g/dL (6.4-8.2); TRIGLYCERIDES 55 mg/dL (0-150); eGFR NON BLACK RACES > 60 (>60)
[2020-01-11] MEDS: ZITHROMAX INJ 500 MG VIAL 500 MG in D5W 250 ML IV 250 ML IV SCH (08:37)
[2020-01-11] MEDS: PULMICORT NEB TX 0.5 MG NEB SCH ×2 (09:30→20:38)
[2020-01-11] MEDS: DUONEB 0.5 MG/3 MG (3 mL) NEB SCH ×4 (09:30→20:39)
--- NOTE | 2020-01-11 10:55 | RAD ---
HISTORYPneumoniaSTUDYAP [id number]/13/2020FINDINGSContinued normal heart size. Persistent infiltrates right upper and left lower lobes. No definite pneumothorax, pleural fluid.IMPRESSIONStable chest. No pneumothorax or other extrapulmonary air collection identified.Electronically signed by: WALLACE SARMIENTO (Jan 11, 2020 10:54:07)
--- NOTE | 2020-01-11 11:24 | DR.PROGNOT ---
Hospital Progress Notes - Progress Note for Day of: Progress Note Date: 01/11/20 - Chief Complaint Chief Complaint: post op re ensertion of a new PEG tube and drainage of the abdomen . stable VS , and tolerating TPN . minimal drainage in RIGO . WBC 11.3. BUN/Creat 14/0.7. afebrile . - Past Medical Family Social History Past Med/Fam/Surg Hx: No changes since H&P Allergies: Allergies No Known Drug Allergies Allergy (Verified 12/30/19 16:19) - Review Of Systems ROS: No change since H&P - Vital Signs Vital Signs: Temperature 98.2 F Pulse Rate [Brachial] 88 Pulse Rate 98 Respiratory Rate 20 Blood Pressure [Right Arm] 133/84 Blood Pressure 128/74 O2 Sat by Pulse Oximetry 100 - Physical Exam Oriented: Not Oriented Eyes: Normal Ear: Normal Nose: Normal Throat: Dry Respiratory: Normal (clear lung ) Cardiovascular: Normal : Normal GI:Auscultation: Decreased GI:Palpation: Other (mild diffuse tenderness , BS hypoactive .) GI: Tenderness: Normal Skin: Decreased Turgur Musculoskeletal: Motor Deficit Mood Description: Anxious Speech Pattern: Unclear - Laboratory and Diagnostics Result Diagrams: 01/11/20 05:29 01/11/20 05:29 Labs: 12/30/19 23:40 Blood Blood Culture - Final 12/30/19 23:32 Blood Blood Culture - Final 12/31/19 00:07 Urine,Clean Catch Urine Culture - Final Laboratory WBC 11.3 X10^3/uL (3.6-10.0) H 01/11/20 05:29 RBC 3.74 X10^6/uL (4.7-6.0) L 01/11/20 05:29 Hgb 11.8 g/dL (13.5-18.0) L 01/11/20 05:29 Hct 34.9 % (42.0-54.0) L 01/11/20 05:29 MCV 93.3 fL (80.0-100.0) 01/11/20 05:29 MCH 31.5 pg (27.0-34.0) 01/11/20 05:29 MCHC 33.8 g/dL (33.0-35.0) 01/11/20 05:29 RDW 13.1 % (11.6-16.5) 01/11/20 05:29 Plt Count 299 X10^3/uL (150.0-450.0) 01/11/20 05:29 Plt Count Comment Adequate (ADEQUATE) 01/11/20 05:29 MPV 9.6 fL (7.4-11.0) 01/11/20 05:29 Neut % (Auto) 90.2 % (42.0-75.0) H 01/11/20 05:29 Lymph % (Auto) 4.1 % (21.0-51.0) L 01/11/20 05:29 [place] % (Auto) 4.4 % (0.0-13.0) 01/11/20 05:29 Eos % (Auto) 0.8 % (0.9-2.9) L 01/11/20 05:29 Baso % (Auto) 0.5 % (0.2-1.0) 01/11/20 05:29 Neut # (Auto) 10.2 x10^3/uL (2.2-4.8) H 01/11/20 05:29 Lymph # (Auto) 0.5 X10^3/uL (1.3-2.9) L 01/11/20 05:29 [place] # (Auto) 0.5 x10^3/uL (0.3-0.8) 01/11/20 05:29 Eos # (Auto) 0.1 x10^3/uL (0.0-0.2) 01/11/20 05:29 Baso # (Auto) 0.1 X10^3/uL (0.0-0.1) 01/11/20 05:29 Absolute Nucleated RBC 0.0 /100WBC 01/11/20 05:29 Total Counted 100 01/11/20 05:29 Neutrophils % (Manual) 85 % (39-76) H 01/11/20 05:29 Lymphocytes % (Manual) 12 % (13-43) L 01/11/20 05:29 Monocytes % (Manual) 2 % (4-9) L 01/11/20 05:29 Eosinophils % (Manual) 1 % (0-6) 01/11/20 05:29 Plt Morphology Comment Normal (NORMAL) 01/11/20 05:29 RBC Morphology Normal (NORMAL) 01/11/20 05:29 Sample Site Rr 01/02/20 05:00 ABG pH 7.490 (7.35-7.45) H 01/02/20 05:00 ABG pCO2 46.0 mmHg (35.0-45.0) H 01/02/20 05:00 ABG pO2 70.0 mmHg (80.0-100.0) L 01/02/20 05:00 ABG HCO3 35.1 mmol/L (22-26) H* 01/02/20 05:00 ABG O2 Saturation 95.0 % (90-100) 01/02/20 05:00 ABG Base Excess 10.4 mmol/L (-2.0-2.0) H 01/02/20 05:00 Kole Test Pos 01/02/20 05:00 A-a Gradient 101.0 mmHg 01/02/20 05:00 FiO2 32.0 01/02/20 05:00 Blood Gas Comments Rosalba well sw 01/02/20 05:00 Sodium 138 mmol/L (136-145) 01/11/20 05:29 Corrected Sodium TNP 01/11/20 05:29 Potassium 3.9 mmol/L (3.5-5.1) 01/11/20 05:29 Chloride 102 mmol/L (98-107) 01/11/20 05:29 Carbon Dioxide 30.1 mmol/L (21-32) 01/11/20 05:29 BUN 14 mg/dL (7-18) 01/11/20 05:29 Creatinine 0.74 mg/dL (0.70-1.30) 01/11/20 05:29 Est GFR (MDRD) Af Amer > 60 (>60) 01/11/20 05:29 Est GFR (MDRD) Non-Af > 60 (>60) 01/11/20 05:29 Glucose 109 mg/dL (65-99) H 01/11/20 05:29 Lactic Acid 2.0 mmol/L (0.4-2.0) 01/02/20 08:51 Calcium 8.4 mg/dL (8.5-10.1) L 01/11/20 05:29 Corrected Calcium 10.4 mg/dL (8.5-10.1) H 01/11/20 05:29 Phosphorus 2.6 mg/dL (2.6-4.7) 01/11/20 05:29 Magnesium 1.7 mg/dL (1.7-2.9) 01/11/20 05:29 Ferritin 1777 ng/mL (26-388) H 01/02/20 04:20 Total Bilirubin 0.30 mg/dL (0.2-1.0) 01/11/20 05:29 AST 27 Units/L (15-37) 01/11/20 05:29 ALT 19 Units/L (12-78) 01/11/20 05:29 Alkaline Phosphatase 65 Units/L (46-116) 01/11/20 05:29 Ammonia 15 umol/L (11-32) 12/30/19 23:32 C-Reactive Protein 186.60 mg/L (0-3.0) H 01/02/20 04:20 Total Protein 6.8 g/dL (6.4-8.2) 01/11/20 05:29 Albumin 1.5 g/dL (3.4-5.0) L 01/11/20 05:29 Globulin 5.3 g/dL (2.5-4.5) H 01/11/20 05:29 Albumin/Globulin Ratio 0.3 Ratio (1.1-2.1) L 01/11/20 05:29 Prealbumin 11.4 mg/dL (18-35.7) L 01/11/20 05:29 Triglycerides 55 mg/dL (0-150) 01/11/20 05:29 Specimen Type Catherized urine 12/31/19 00:07 Urine Color Yellow (YELLOW) 12/31/19 00:07 Urine Appearance Clear (CLEAR) 12/31/19 00:07 Urine pH 5.0 (5.0 - 8.0) 12/31/19 00:07 Ur Specific [place] 1.020 (1.000-1.030) 12/31/19 00:07 Urine Protein 2+ (NEGATIVE) 12/31/19 00:07 Urine Glucose (UA) Negative (NEGATIVE) 12/31/19 00:07 Urine Ketones 1+ (NEGATIVE) 12/31/19 00:07 Urine Occult Blood 2+ (NEGATIVE) 12/31/19 00:07 Urine Nitrite Negative (NEGATIVE) 12/31/19 00:07 Urine Bilirubin Negative (NEGATIVE) 12/31/19 00:07 Urine Urobilinogen Normal (NORMAL) 12/31/19 00:07 Ur Leukocyte Esterase Negative (NEGATIVE) 12/31/19 00:07 Urine RBC 0-2 /HPF (0-3) 12/31/19 00:07 Urine WBC 0-2 /HPF (0-5) 12/31/19 00:07 Ur Squamous Epith Cells Moderate /HPF (NEGATIVE) 12/31/19 00:07 Urine Bacteria Trace /HPF (NEGATIVE) 12/31/19 00:07 Ur Culture Indicated? No/not indicated 12/31/19 00:07 SARS-CoV-2 (PCR) Negative (NEGATIVE) 01/02/20 09:35 - Assessment and Plan 1: S/P EGD and re ensertion PEG feeding . to keep NPO , TPN and IV ATB . - Problem Patient Problems: Patient Problems AMS (altered mental status) (Acute) R41.82 Hyperosmolality and hypernatremia (Acute) E87.0 Pneumonia (Acute) J18.9
[2020-01-11] MEDS: MVI IV SCH ×6 (13:01→21:01)
[2020-01-11] MEDS: CLINIMIX IV SCH ×6 (13:01→21:01)
[2020-01-11] MEDS: TRACE ELEMENTS IV SCH ×6 (13:01→21:01)
[2020-01-11] MEDS: ATIVAN INJ 2 MG VIAL IVP PRN ×2 (14:35→23:00)
[2020-01-11] MEDS: ZYPREXA IM SCH (15:54)
[2020-01-11] MEDS: D5W 1000 ML IV 1,000 ML IV SCH (15:54)
[2020-01-12] MEDS: ZOSYN VIAL 4.5 GRAMS 4.5 G in NS 100 ML IV + SPIKE MINIBAG* 100 ML IV SCH ×3 (05:02→21:18)
[2020-01-12 05:28] LABS: BASOPHILS % (AUTO) 0.3 % (0.2-1.0); EOSINOPHILS % (AUTO) 0.8 % (0.9-2.9); HEMATOCRIT 33.2 % (42.0-54.0); HEMOGLOBIN 11.3 g/dL (13.5-18.0); LYMPHOCYTES # (AUTO) 0.5 X10^3/uL (1.3-2.9); LYMPHOCYTES % (AUTO) 8.3 % (21.0-51.0); MEAN CORPUSCULAR HEMOGLOBIN 31.4 pg (27.0-34.0); MEAN CORPUSCULAR HGB CONC 33.9 g/dL (33.0-35.0); MEAN CORPUSCULAR VOLUME 92.5 fL (80.0-100.0); MEAN PLATELET VOLUME 8.9 fL (7.4-11.0); MONOCYTES # (AUTO) 0.6 x10^3/uL (0.3-0.8); MONOCYTES % (AUTO) 10.5 % (0.0-13.0); NEUTROPHILS # (AUTO) 4.7 x10^3/uL (2.2-4.8); NEUTROPHILS % (AUTO) 80.1 % (42.0-75.0); PLATELET COUNT 267 X10^3/uL (150.0-450.0); RED BLOOD COUNT 3.59 X10^6/uL (4.7-6.0); RED CELL DISTRIBUTION WIDTH 12.8 % (11.6-16.5); WHITE BLOOD COUNT 5.9 X10^3/uL (3.6-10.0)
[2020-01-12 05:48] LABS: ALANINE AMINOTRANSFERASE 27 Units/L (12-78); ALBUMIN 1.5 g/dL (3.4-5.0); ALKALINE PHOSPHATASE 61 Units/L (46-116); ASPARTATE AMINO TRANSFERASE 32 Units/L (15-37); BLOOD UREA NITROGEN 11 mg/dL (7-18); CALCIUM 8.1 mg/dL (8.5-10.1); CARBON DIOXIDE 29.8 mmol/L (21-32); CHLORIDE 104 mmol/L (98-107); COR CA(FOR HYPOALB) 10.1 mg/dL (8.5-10.1); COR NA(FOR HYPERGLY) 139 mmol/L (136-145); CREATININE 0.67 mg/dL (0.70-1.30); MAGNESIUM 1.5 mg/dL (1.7-2.9); PHOSPHORUS 2.1 mg/dL (2.6-4.7); SODIUM 139 mmol/L (136-145); TOTAL PROTEIN 6.4 g/dL (6.4-8.2); TRIGLYCERIDES 53 mg/dL (0-150); eGFR NON BLACK RACES > 60 (>60)
[2020-01-12 05:52] LABS: PREALBUMIN 11.2 mg/dL (18-35.7)
[2020-01-12] MEDS: ZITHROMAX INJ 500 MG VIAL 500 MG in D5W 250 ML IV 250 ML IV SCH (08:45)
[2020-01-12] MEDS: ZYPREXA IM SCH (08:46)
[2020-01-12] MEDS: ATIVAN INJ 2 MG VIAL IVP PRN ×2 (09:02→17:44)
[2020-01-12] MEDS: DUONEB 0.5 MG/3 MG (3 mL) NEB SCH ×4 (09:16→20:39)
[2020-01-12] MEDS: PULMICORT NEB TX 0.5 MG NEB SCH ×2 (09:17→20:39)
--- NOTE | 2020-01-12 09:51 | DR.PROGNOT ---
Hospital Progress Notes - Progress Note for Day of: Progress Note Date: 01/12/20 - Chief Complaint Chief Complaint: no changes today .. non verbal , agitated and combative at times requiring Ativan. stable VS , and tolerating TPN . minimal drainage in RIGO. WBC 5.9. BUN/Creat 11/0.67... Album 1.5 - Past Medical Family Social History Past Med/Fam/Surg Hx: No changes since H&P Allergies: Allergies No Known Drug Allergies Allergy (Verified 12/30/19 16:19) - Review Of Systems ROS: No change since H&P - Vital Signs Vital Signs: Temperature 99.2 F Pulse Rate [Brachial] 83 Pulse Rate 91 Respiratory Rate 16 Blood Pressure [Right Arm] 153/83 Blood Pressure 128/74 O2 Sat by Pulse Oximetry 100 - Physical Exam Oriented: Not Oriented Eyes: Normal Ear: Normal Nose: Normal Throat: Dry Respiratory: Normal (clear lung ) Cardiovascular: Normal : Normal GI:Auscultation: Decreased GI:Palpation: Other (mild diffuse tenderness , BS hypoactive .) GI: Tenderness: Other (soft abdomen . BS still hypo active ) Skin: Decreased Turgur Musculoskeletal: Motor Deficit Mood Description: Anxious Speech Pattern: Unclear - Laboratory and Diagnostics Result Diagrams: 01/12/20 04:50 01/12/20 04:50 Labs: 12/30/19 23:40 Blood Blood Culture - Final 12/30/19 23:32 Blood Blood Culture - Final 12/31/19 00:07 Urine,Clean Catch Urine Culture - Final Laboratory WBC 5.9 X10^3/uL (3.6-10.0) 01/12/20 04:50 RBC 3.59 X10^6/uL (4.7-6.0) L 01/12/20 04:50 Hgb 11.3 g/dL (13.5-18.0) L 01/12/20 04:50 Hct 33.2 % (42.0-54.0) L 01/12/20 04:50 MCV 92.5 fL (80.0-100.0) 01/12/20 04:50 MCH 31.4 pg (27.0-34.0) 01/12/20 04:50 MCHC 33.9 g/dL (33.0-35.0) 01/12/20 04:50 RDW 12.8 % (11.6-16.5) 01/12/20 04:50 Plt Count 267 X10^3/uL (150.0-450.0) 01/12/20 04:50 Plt Count Comment Adequate (ADEQUATE) 01/11/20 05:29 MPV 8.9 fL (7.4-11.0) 01/12/20 04:50 Neut % (Auto) 80.1 % (42.0-75.0) H 01/12/20 04:50 Lymph % (Auto) 8.3 % (21.0-51.0) L 01/12/20 04:50 [place] % (Auto) 10.5 % (0.0-13.0) 01/12/20 04:50 Eos % (Auto) 0.8 % (0.9-2.9) L 01/12/20 04:50 Baso % (Auto) 0.3 % (0.2-1.0) 01/12/20 04:50 Neut # (Auto) 4.7 x10^3/uL (2.2-4.8) 01/12/20 04:50 Lymph # (Auto) 0.5 X10^3/uL (1.3-2.9) L 01/12/20 04:50 [place] # (Auto) 0.6 x10^3/uL (0.3-0.8) 01/12/20 04:50 Eos # (Auto) 0.0 x10^3/uL (0.0-0.2) 01/12/20 04:50 Baso # (Auto) 0.0 X10^3/uL (0.0-0.1) 01/12/20 04:50 Absolute Nucleated RBC 0.0 /100WBC 01/12/20 04:50 Total Counted 100 01/11/20 05:29 Neutrophils % (Manual) 85 % (39-76) H 01/11/20 05:29 Lymphocytes % (Manual) 12 % (13-43) L 01/11/20 05:29 Monocytes % (Manual) 2 % (4-9) L 01/11/20 05:29 Eosinophils % (Manual) 1 % (0-6) 01/11/20 05:29 Plt Morphology Comment Normal (NORMAL) 01/11/20 05:29 RBC Morphology Normal (NORMAL) 01/11/20 05:29 Sample Site Rr 01/02/20 05:00 ABG pH 7.490 (7.35-7.45) H 01/02/20 05:00 ABG pCO2 46.0 mmHg (35.0-45.0) H 01/02/20 05:00 ABG pO2 70.0 mmHg (80.0-100.0) L 01/02/20 05:00 ABG HCO3 35.1 mmol/L (22-26) H* 01/02/20 05:00 ABG O2 Saturation 95.0 % (90-100) 01/02/20 05:00 ABG Base Excess 10.4 mmol/L (-2.0-2.0) H 01/02/20 05:00 Kole Test Pos 01/02/20 05:00 A-a Gradient 101.0 mmHg 01/02/20 05:00 FiO2 32.0 01/02/20 05:00 Blood Gas Comments Rosalba well sw 01/02/20 05:00 Sodium 139 mmol/L (136-145) 01/12/20 04:50 Corrected Sodium 139 mmol/L (136-145) 01/12/20 04:50 Potassium 3.6 mmol/L (3.5-5.1) 01/12/20 04:50 Chloride 104 mmol/L (98-107) 01/12/20 04:50 Carbon Dioxide 29.8 mmol/L (21-32) 01/12/20 04:50 BUN 11 mg/dL (7-18) 01/12/20 04:50 Creatinine 0.67 mg/dL (0.70-1.30) L 01/12/20 04:50 Est GFR (MDRD) Af Amer > 60 (>60) 01/12/20 04:50 Est GFR (MDRD) Non-Af > 60 (>60) 01/12/20 04:50 Glucose 111 mg/dL (65-99) H 01/12/20 04:50 Lactic Acid 2.0 mmol/L (0.4-2.0) 01/02/20 08:51 Calcium 8.1 mg/dL (8.5-10.1) L 01/12/20 04:50 Corrected Calcium 10.1 mg/dL (8.5-10.1) 01/12/20 04:50 Phosphorus 2.1 mg/dL (2.6-4.7) L 01/12/20 04:50 Magnesium 1.5 mg/dL (1.7-2.9) L 01/12/20 04:50 Ferritin 1777 ng/mL (26-388) H 01/02/20 04:20 Total Bilirubin 0.20 mg/dL (0.2-1.0) 01/12/20 04:50 AST 32 Units/L (15-37) 01/12/20 04:50 ALT 27 Units/L (12-78) 01/12/20 04:50 Alkaline Phosphatase 61 Units/L (46-116) 01/12/20 04:50 Ammonia 15 umol/L (11-32) 12/30/19 23:32 C-Reactive Protein 186.60 mg/L (0-3.0) H 01/02/20 04:20 Total Protein 6.4 g/dL (6.4-8.2) 01/12/20 04:50 Albumin 1.5 g/dL (3.4-5.0) L 01/12/20 04:50 Globulin 4.9 g/dL (2.5-4.5) H 01/12/20 04:50 Albumin/Globulin Ratio 0.3 Ratio (1.1-2.1) L 01/12/20 04:50 Prealbumin 11.2 mg/dL (18-35.7) L 01/12/20 04:50 Triglycerides 53 mg/dL (0-150) 01/12/20 04:50 Specimen Type Catherized urine 12/31/19 00:07 Urine Color Yellow (YELLOW) 12/31/19 00:07 Urine Appearance Clear (CLEAR) 12/31/19 00:07 Urine pH 5.0 (5.0 - 8.0) 12/31/19 00:07 Ur Specific [place] 1.020 (1.000-1.030) 12/31/19 00:07 Urine Protein 2+ (NEGATIVE) 12/31/19 00:07 Urine Glucose (UA) Negative (NEGATIVE) 12/31/19 00:07 Urine Ketones 1+ (NEGATIVE) 12/31/19 00:07 Urine Occult Blood 2+ (NEGATIVE) 12/31/19 00:07 Urine Nitrite Negative (NEGATIVE) 12/31/19 00:07 Urine Bilirubin Negative (NEGATIVE) 12/31/19 00:07 Urine Urobilinogen Normal (NORMAL) 12/31/19 00:07 Ur Leukocyte Esterase Negative (NEGATIVE) 12/31/19 00:07 Urine RBC 0-2 /HPF (0-3) 12/31/19 00:07 Urine WBC 0-2 /HPF (0-5) 12/31/19 00:07 Ur Squamous Epith Cells Moderate /HPF (NEGATIVE) 12/31/19 00:07 Urine Bacteria Trace /HPF (NEGATIVE) 12/31/19 00:07 Ur Culture Indicated? No/not indicated 12/31/19 00:07 SARS-CoV-2 (PCR) Negative (NEGATIVE) 01/02/20 09:35 - Assessment and Plan 1: S/P EGD and re ensertion PEG feeding . to keep NPO , to increase TPN and same IV ATB . - Problem Patient Problems: Patient Problems AMS (altered mental status) (Acute) R41.82 Hyperosmolality and hypernatremia (Acute) E87.0 Pneumonia (Acute) J18.9
[2020-01-12] MEDS: CLINIMIX 5 %/20 % 1,000 ML with MVI INJ (ADULT) 10 ML, TRACE ELEMENTS INJ 10 ML, TPN EL... IV SCH ×12 (11:34→23:09)
[2020-01-12] MEDS: D5W 1000 ML IV 1,000 ML IV SCH (14:05)
[2020-01-13] MEDS: ATIVAN INJ 2 MG VIAL IVP PRN ×3 (01:11→18:03)
--- NOTE | 2020-01-13 05:57 | RAD ---
HISTORYFollow-up pneumoniaSTUDYChest AP [id number] is a right IJ line in good position. Patient is rotated sli ghtly to the left. Heart size remains normal. Right lung is clear as is the left upper lobe. Left low er lobe pneumonia is unchanged. No definite right pleural effusion is identified. Left pleural effusi on cannot be excluded as the left costophrenic angle is not included on the image. Bony thorax is unr emarkable.IMPRESSIONNo change left lower lobe pneumoniaRemainder of the lung roy now clearElectron ically signed by: FLAVIO HENRY (Jan 13, 2020 05:55:58)
[2020-01-13] MEDS: ZOSYN VIAL 4.5 GRAMS 4.5 G in NS 100 ML IV + SPIKE MINIBAG* 100 ML IV SCH ×3 (06:01→23:00)
[2020-01-13 06:09] LABS: BASOPHILS % (AUTO) 0.7 % (0.2-1.0); EOSINOPHILS # (AUTO) 0.1 x10^3/uL (0.0-0.2); EOSINOPHILS % (AUTO) 2.9 % (0.9-2.9); HEMATOCRIT 33.7 % (42.0-54.0); HEMOGLOBIN 11.8 g/dL (13.5-18.0); LYMPHOCYTES # (AUTO) 0.5 X10^3/uL (1.3-2.9); LYMPHOCYTES % (AUTO) 12.8 % (21.0-51.0); MEAN CORPUSCULAR HEMOGLOBIN 32.1 pg (27.0-34.0); MEAN CORPUSCULAR VOLUME 91.7 fL (80.0-100.0); MEAN PLATELET VOLUME 8.3 fL (7.4-11.0); MONOCYTES # (AUTO) 0.4 x10^3/uL (0.3-0.8); MONOCYTES % (AUTO) 9.6 % (0.0-13.0); NEUTROPHILS # (AUTO) 3.2 x10^3/uL (2.2-4.8); PLATELET COUNT 298 X10^3/uL (150.0-450.0); RED BLOOD COUNT 3.67 X10^6/uL (4.7-6.0); RED CELL DISTRIBUTION WIDTH 12.9 % (11.6-16.5); WHITE BLOOD COUNT 4.3 X10^3/uL (3.6-10.0)
[2020-01-13 06:36] LABS: ALANINE AMINOTRANSFERASE 36 Units/L (12-78); ALBUMIN 1.7 g/dL (3.4-5.0); ALKALINE PHOSPHATASE 66 Units/L (46-116); ASPARTATE AMINO TRANSFERASE 35 Units/L (15-37); BLOOD UREA NITROGEN 12 mg/dL (7-18); CALCIUM 8.3 mg/dL (8.5-10.1); CARBON DIOXIDE 35.6 mmol/L (21-32); CHLORIDE 107 mmol/L (98-107); COR CA(FOR HYPOALB) 10.1 mg/dL (8.5-10.1); CREATININE 0.69 mg/dL (0.70-1.30); MAGNESIUM 1.7 mg/dL (1.7-2.9); PHOSPHORUS 2.6 mg/dL (2.6-4.7); PREALBUMIN 12.2 mg/dL (18-35.7); SODIUM 143 mmol/L (136-145); TRIGLYCERIDES 56 mg/dL (0-150); eGFR NON BLACK RACES > 60 (>60)
[2020-01-13] MEDS: PULMICORT NEB TX 0.5 MG NEB SCH ×2 (09:00→20:33)
[2020-01-13] MEDS: DUONEB 0.5 MG/3 MG (3 mL) NEB SCH ×4 (09:00→20:33)
[2020-01-13 09:33] LABS: ABG BASE EXCESS 8.4 mmol/L (-2.0-2.0); ABG HCO3 33.4 mmol/L (22-26)
[2020-01-13] MEDS: VIBRAMYCIN 100 MG in D5W 250 ML IV 250 ML IV SCH ×2 (09:39→20:43)
[2020-01-13] MEDS: ZYPREXA IM SCH (11:09)
[2020-01-13] MEDS: CLINIMIX 5 %/20 % 1,000 ML with MVI INJ (ADULT) 10 ML, TRACE ELEMENTS INJ 10 ML, TPN EL... IV SCH ×4 (18:02)
[2020-01-13] MEDS: D5W 1000 ML IV 1,000 ML IV SCH (18:03)
[2020-01-14] MEDS: CLINIMIX 5 %/20 % 1,000 ML with MVI INJ (ADULT) 10 ML, TRACE ELEMENTS INJ 10 ML, TPN EL... IV SCH ×4 (04:13)
[2020-01-14] MEDS: ATIVAN INJ 2 MG VIAL IVP PRN ×3 (05:10→21:46)
[2020-01-14] MEDS: ZOSYN VIAL 4.5 GRAMS 4.5 G in NS 100 ML IV + SPIKE MINIBAG* 100 ML IV SCH ×3 (05:10→21:34)
[2020-01-14 06:40] LABS: EOSINOPHILS # (AUTO) 0.2 x10^3/uL (0.0-0.2); EOSINOPHILS % (AUTO) 4.7 % (0.9-2.9); HEMATOCRIT 32.3 % (42.0-54.0); HEMOGLOBIN 11.3 g/dL (13.5-18.0); LYMPHOCYTES # (AUTO) 0.6 X10^3/uL (1.3-2.9); LYMPHOCYTES % (AUTO) 13.7 % (21.0-51.0); MEAN CORPUSCULAR HEMOGLOBIN 31.7 pg (27.0-34.0); MEAN CORPUSCULAR HGB CONC 34.9 g/dL (33.0-35.0); MEAN CORPUSCULAR VOLUME 90.9 fL (80.0-100.0); MEAN PLATELET VOLUME 8.1 fL (7.4-11.0); MONOCYTES # (AUTO) 0.4 x10^3/uL (0.3-0.8); MONOCYTES % (AUTO) 8.8 % (0.0-13.0); NEUTROPHILS # (AUTO) 3.1 x10^3/uL (2.2-4.8); NEUTROPHILS % (AUTO) 71.8 % (42.0-75.0); PLATELET COUNT 254 X10^3/uL (150.0-450.0); RED BLOOD COUNT 3.55 X10^6/uL (4.7-6.0); RED CELL DISTRIBUTION WIDTH 12.8 % (11.6-16.5); WHITE BLOOD COUNT 4.3 X10^3/uL (3.6-10.0)
[2020-01-14 06:50] LABS: BLOOD UREA NITROGEN 13 mg/dL (7-18); CALCIUM 8.1 mg/dL (8.5-10.1); CARBON DIOXIDE 28.8 mmol/L (21-32); CHLORIDE 106 mmol/L (98-107); COR NA(FOR HYPERGLY) 141 mmol/L (136-145); CREATININE 0.65 mg/dL (0.70-1.30); PHOSPHORUS 2.3 mg/dL (2.6-4.7); SODIUM 141 mmol/L (136-145); TRIGLYCERIDES 41 mg/dL (0-150); eGFR NON BLACK RACES > 60 (>60)
[2020-01-14] MEDS: VIBRAMYCIN 100 MG in D5W 250 ML IV 250 ML IV SCH ×2 (08:57→20:56)
[2020-01-14] MEDS: DUONEB 0.5 MG/3 MG (3 mL) NEB SCH ×4 (09:05→20:28)
[2020-01-14] MEDS: PULMICORT NEB TX 0.5 MG NEB SCH ×2 (09:05→20:29)
[2020-01-14] MEDS: ZYPREXA IM SCH (13:42)
[2020-01-14] MEDS: D5W 1000 ML IV 1,000 ML IV SCH (13:42)
--- NOTE | 2020-01-14 17:36 | DR.PROGNOT ---
Hospital Progress Notes - Progress Note for Day of: Progress Note Date: 01/14/20 - Chief Complaint Chief Complaint: no changes today .. actually Pt respond a little to verbal commands , agitated and combative at times requiring Ativan. stable VS , and tolerating TPN . minimal drainage in RIGO. WBC 4.3.. LEMUEL/Creatinin normal . temp 98 - Past Medical Family Social History Past Med/Fam/Surg Hx: No changes since H&P Allergies: Allergies No Known Drug Allergies Allergy (Verified 12/30/19 16:19) - Review Of Systems ROS: No change since H&P - Vital Signs Vital Signs: Temperature 98.5 F Pulse Rate [Brachial] 88 Pulse Rate 78 Respiratory Rate 20 Blood Pressure [Right Arm] 115/88 Blood Pressure 128/74 O2 Sat by Pulse Oximetry 99 - Physical Exam Oriented: Not Oriented Eyes: Normal Ear: Normal Nose: Normal Throat: Dry Respiratory: Normal (clear lung ) Cardiovascular: Normal : Normal GI:Auscultation: Decreased GI:Palpation: Other (mild diffuse tenderness , BS hypoactive .) GI: Tenderness: Other (soft abdomen . BS still hypo active ) Skin: Decreased Turgur Musculoskeletal: Motor Deficit Mood Description: Anxious Speech Pattern: Unclear - Laboratory and Diagnostics Result Diagrams: 01/14/20 06:11 01/14/20 06:11 Labs: 12/30/19 23:40 Blood Blood Culture - Final 12/30/19 23:32 Blood Blood Culture - Final 12/31/19 00:07 Urine,Clean Catch Urine Culture - Final Laboratory WBC 4.3 X10^3/uL (3.6-10.0) 01/14/20 06:11 RBC 3.55 X10^6/uL (4.7-6.0) L 01/14/20 06:11 Hgb 11.3 g/dL (13.5-18.0) L 01/14/20 06:11 Hct 32.3 % (42.0-54.0) L 01/14/20 06:11 MCV 90.9 fL (80.0-100.0) 01/14/20 06:11 MCH 31.7 pg (27.0-34.0) 01/14/20 06:11 MCHC 34.9 g/dL (33.0-35.0) 01/14/20 06:11 RDW 12.8 % (11.6-16.5) 01/14/20 06:11 Plt Count 254 X10^3/uL (150.0-450.0) 01/14/20 06:11 Plt Count Comment Adequate (ADEQUATE) 01/11/20 05:29 MPV 8.1 fL (7.4-11.0) 01/14/20 06:11 Neut % (Auto) 71.8 % (42.0-75.0) 01/14/20 06:11 Lymph % (Auto) 13.7 % (21.0-51.0) L 01/14/20 06:11 [place] % (Auto) 8.8 % (0.0-13.0) 01/14/20 06:11 Eos % (Auto) 4.7 % (0.9-2.9) H 01/14/20 06:11 Baso % (Auto) 1.0 % (0.2-1.0) 01/14/20 06:11 Neut # (Auto) 3.1 x10^3/uL (2.2-4.8) 01/14/20 06:11 Lymph # (Auto) 0.6 X10^3/uL (1.3-2.9) L 01/14/20 06:11 [place] # (Auto) 0.4 x10^3/uL (0.3-0.8) 01/14/20 06:11 Eos # (Auto) 0.2 x10^3/uL (0.0-0.2) 01/14/20 06:11 Baso # (Auto) 0.0 X10^3/uL (0.0-0.1) 01/14/20 06:11 Absolute Nucleated RBC 0.0 /100WBC 01/14/20 06:11 Total Counted 100 01/11/20 05:29 Neutrophils % (Manual) 85 % (39-76) H 01/11/20 05:29 Lymphocytes % (Manual) 12 % (13-43) L 01/11/20 05:29 Monocytes % (Manual) 2 % (4-9) L 01/11/20 05:29 Eosinophils % (Manual) 1 % (0-6) 01/11/20 05:29 Plt Morphology Comment Normal (NORMAL) 01/11/20 05:29 RBC Morphology Normal (NORMAL) 01/11/20 05:29 Sample Site Rb 01/13/20 09:28 ABG pH 7.460 (7.35-7.45) H 01/13/20 09:28 ABG pCO2 47.0 mmHg (35.0-45.0) H 01/13/20 09:28 ABG pO2 77.0 mmHg (80.0-100.0) L 01/13/20 09:28 ABG HCO3 33.4 mmol/L (22-26) H* 01/13/20 09:28 ABG O2 Saturation 96.0 % (90-100) 01/13/20 09:28 ABG Base Excess 8.4 mmol/L (-2.0-2.0) H 01/13/20 09:28 Kole Test Na 01/13/20 09:28 A-a Gradient 14.0 mmHg 01/13/20 09:28 FiO2 21.0 01/13/20 09:28 Blood Gas Comments Rosalba well cb 01/13/20 09:28 Sodium 141 mmol/L (136-145) 01/14/20 06:11 Corrected Sodium 141 mmol/L (136-145) 01/14/20 06:11 Potassium 3.8 mmol/L (3.5-5.1) 01/14/20 06:11 Chloride 106 mmol/L (98-107) 01/14/20 06:11 Carbon Dioxide 28.8 mmol/L (21-32) 01/14/20 06:11 BUN 13 mg/dL (7-18) 01/14/20 06:11 Creatinine 0.65 mg/dL (0.70-1.30) L 01/14/20 06:11 Est GFR (MDRD) Af Amer > 60 (>60) 01/14/20 06:11 Est GFR (MDRD) Non-Af > 60 (>60) 01/14/20 06:11 Glucose 118 mg/dL (65-99) H 01/14/20 06:11 Lactic Acid 2.0 mmol/L (0.4-2.0) 01/02/20 08:51 Calcium 8.1 mg/dL (8.5-10.1) L 01/14/20 06:11 Corrected Calcium 10.1 mg/dL (8.5-10.1) 01/13/20 05:08 Phosphorus 2.3 mg/dL (2.6-4.7) L 01/14/20 06:11 Magnesium 1.7 mg/dL (1.7-2.9) 01/13/20 05:08 Ferritin 1777 ng/mL (26-388) H 01/02/20 04:20 Total Bilirubin 0.20 mg/dL (0.2-1.0) 01/13/20 05:08 AST 35 Units/L (15-37) 01/13/20 05:08 ALT 36 Units/L (12-78) 01/13/20 05:08 Alkaline Phosphatase 66 Units/L (46-116) 01/13/20 05:08 Ammonia 15 umol/L (11-32) 12/30/19 23:32 C-Reactive Protein 186.60 mg/L (0-3.0) H 01/02/20 04:20 Total Protein 7.0 g/dL (6.4-8.2) 01/13/20 05:08 Albumin 1.7 g/dL (3.4-5.0) L 01/13/20 05:08 Globulin 5.3 g/dL (2.5-4.5) H 01/13/20 05:08 Albumin/Globulin Ratio 0.3 Ratio (1.1-2.1) L 01/13/20 05:08 Prealbumin 12.2 mg/dL (18-35.7) L 01/13/20 05:08 Triglycerides 41 mg/dL (0-150) 01/14/20 06:11 Specimen Type Catherized urine 12/31/19 00:07 Urine Color Yellow (YELLOW) 12/31/19 00:07 Urine Appearance Clear (CLEAR) 12/31/19 00:07 Urine pH 5.0 (5.0 - 8.0) 12/31/19 00:07 Ur Specific [place] 1.020 (1.000-1.030) 12/31/19 00:07 Urine Protein 2+ (NEGATIVE) 12/31/19 00:07 Urine Glucose (UA) Negative (NEGATIVE) 12/31/19 00:07 Urine Ketones 1+ (NEGATIVE) 12/31/19 00:07 Urine Occult Blood 2+ (NEGATIVE) 12/31/19 00:07 Urine Nitrite Negative (NEGATIVE) 12/31/19 00:07 Urine Bilirubin Negative (NEGATIVE) 12/31/19 00:07 Urine Urobilinogen Normal (NORMAL) 12/31/19 00:07 Ur Leukocyte Esterase Negative (NEGATIVE) 12/31/19 00:07 Urine RBC 0-2 /HPF (0-3) 12/31/19 00:07 Urine WBC 0-2 /HPF (0-5) 12/31/19 00:07 Ur Squamous Epith Cells Moderate /HPF (NEGATIVE) 12/31/19 00:07 Urine Bacteria Trace /HPF (NEGATIVE) 12/31/19 00:07 Ur Culture Indicated? No/not indicated 12/31/19 00:07 SARS-CoV-2 (PCR) Negative (NEGATIVE) 01/02/20 09:35 - Assessment and Plan 1: dislodged PEG tube for the 2nd time . Pt needs closure of the gastric injury and create permanent gastrostomy . to d/w family . NPO , on TPN and IV ATB .. abdominal drainage - Problem Patient Problems: Patient Problems AMS (altered mental status) (Acute) R41.82 Hyperosmolality and hypernatremia (Acute) E87.0 Pneumonia (Acute) J18.9
[2020-01-14] MEDS: CLINIMIX 5 %/20 % 1,000 ML with MVI INJ (ADULT) 10 ML, TPN ELECTROLYTES 20 ML IV SCH ×6 (18:34→20:57)
[2020-01-15] MEDS: OFIRMEV IV 1000 MG VIAL 1,000 MG/100 ML VIAL IV PRN (00:47)
[2020-01-15] MEDS ORDERED: MORPHINE SULFATE INJ 2 MG INJ ONE (03:15)
[2020-01-15] MEDS: MORPHINE SULFATE INJ 2 MG INJ IVP PRN (04:25)
[2020-01-15] MEDS: ZOSYN VIAL 4.5 GRAMS 4.5 G in NS 100 ML IV + SPIKE MINIBAG* 100 ML IV SCH ×3 (06:05→21:40)
[2020-01-15 06:24] LABS: BASOPHILS % (AUTO) 0.5 % (0.2-1.0); EOSINOPHILS # (AUTO) 0.2 x10^3/uL (0.0-0.2); EOSINOPHILS % (AUTO) 3.1 % (0.9-2.9); HEMATOCRIT 36.9 % (42.0-54.0); HEMOGLOBIN 12.8 g/dL (13.5-18.0); LYMPHOCYTES # (AUTO) 1.1 X10^3/uL (1.3-2.9); LYMPHOCYTES % (AUTO) 14.9 % (21.0-51.0); MEAN CORPUSCULAR HEMOGLOBIN 31.6 pg (27.0-34.0); MEAN CORPUSCULAR HGB CONC 34.6 g/dL (33.0-35.0); MEAN CORPUSCULAR VOLUME 91.5 fL (80.0-100.0); MEAN PLATELET VOLUME 8.1 fL (7.4-11.0); MONOCYTES # (AUTO) 0.5 x10^3/uL (0.3-0.8); MONOCYTES % (AUTO) 7.1 % (0.0-13.0); NEUTROPHILS # (AUTO) 5.6 x10^3/uL (2.2-4.8); NEUTROPHILS % (AUTO) 74.4 % (42.0-75.0); PLATELET COUNT 290 X10^3/uL (150.0-450.0); RED BLOOD COUNT 4.04 X10^6/uL (4.7-6.0); RED CELL DISTRIBUTION WIDTH 13.2 % (11.6-16.5); WHITE BLOOD COUNT 7.5 X10^3/uL (3.6-10.0)
[2020-01-15 06:40] LABS: BLOOD UREA NITROGEN 13 mg/dL (7-18); CALCIUM 8.6 mg/dL (8.5-10.1); CARBON DIOXIDE 30.9 mmol/L (21-32); CHLORIDE 107 mmol/L (98-107); CREATININE 0.64 mg/dL (0.70-1.30); SODIUM 142 mmol/L (136-145); eGFR NON BLACK RACES > 60 (>60)
[2020-01-15] MEDS: DUONEB 0.5 MG/3 MG (3 mL) NEB SCH ×4 (09:19→21:00)
[2020-01-15] MEDS: PULMICORT NEB TX 0.5 MG NEB SCH ×2 (09:19→20:59)
[2020-01-15] MEDS ORDERED: FENTANYL INJ 250 mcg ONE (10:30)
[2020-01-15] MEDS ORDERED: NS 1000 ML 1,000 ML ONE ×2 (10:30→10:46)
[2020-01-15] MEDS ORDERED: NEOSTIGMINE INJ ONE (11:30)
[2020-01-15] MEDS ORDERED: EPHEDRINE SULFATE INJ ONE (11:30)
[2020-01-15] MEDS ORDERED: NORCURON INJ 10 MG VIAL ONE (11:30)
[2020-01-15] MEDS ORDERED: SUPRANE ONE (11:30)
[2020-01-15] MEDS ORDERED: ROBINUL ONE (11:30)
[2020-01-15] MEDS ORDERED: QUELICIN (OR ANECTINE) ONE (11:30)
[2020-01-15] MEDS ORDERED: BENADRYL INJ 50 MG VIAL IVP PRN (14:02)
[2020-01-15] MEDS ORDERED: PHENERGAN INJ 25 MG IM PRN (14:02)
[2020-01-15] MEDS ORDERED: REGLAN INJ 10 MG VIAL IVP PRN (14:02)
[2020-01-15] MEDS ORDERED: ZOFRAN INJ 4 MG VIAL IVP PRN (14:02)
--- NOTE | 2020-01-15 14:08 | RAD ---
HISTORYLine placedSTUDDecatur Morgan Hospital [id number]/2020FINDINGSPositioning is suboptimal with costophrenic angles not included o n the image. The previously present right IJ line is no longer present. There is a new right-sided ce ntral line with its tip in the expected position of superior vena cava. There is an endotracheal tube approximately 2 cm above the marci. Retraction of 3 cm should be considered for optimal performance . The heart is within normal limits in size. The mariah are normal. The lungs are hyperinflated. The ri ght lung is clear. Left lower lobe infiltrate remains however there has been improvement since the pr ior examination. Bony thorax is unremarkable with the exception of bilateral glenohumeral degenerativ e joint disease.IMPRESSIONRight-sided central line tip superior vena cavaET tube 2 cm above the enedina a. Retraction of 3 cm should be considered for optimal performance.Improving left lower lobe infiltra teElectronically signed by: FLAVIO HENRY (Jan 15, 2020 14:07:17)
[2020-01-15] MEDS: DILAUDID INJ IVP PRN ×4 (14:13→14:28)
[2020-01-15] MEDS ORDERED: DILAUDID INJ ONE ×2 (14:13→14:21)
[2020-01-15] MEDS: ZYPREXA IM SCH (15:03)
[2020-01-15] MEDS: VIBRAMYCIN 100 MG in D5W 250 ML IV 250 ML IV SCH ×2 (15:56→21:40)
[2020-01-15] MEDS: D5W 1000 ML IV 1,000 ML IV SCH (15:56)
[2020-01-15] MEDS: CLINIMIX 5 %/20 % 1,000 ML with MVI INJ (ADULT) 10 ML, TPN ELECTROLYTES 20 ML, TRACE EL... IV SCH ×4 (21:40)
[2020-01-15] MEDS: ATIVAN INJ 2 MG VIAL IVP PRN (21:40)
[2020-01-16] MEDS: DILAUDID INJ IVP PRN ×6 (00:25→23:13)
[2020-01-16] MEDS: DUONEB 0.5 MG/3 MG (3 mL) NEB SCH ×6 (00:35→20:49)
[2020-01-16] MEDS: ZOSYN VIAL 4.5 GRAMS 4.5 G in NS 100 ML IV + SPIKE MINIBAG* 100 ML IV SCH ×3 (06:00→20:50)
[2020-01-16 06:09] LABS: BASOPHILS % (AUTO) 0.1 % (0.2-1.0); EOSINOPHILS % (AUTO) 0.3 % (0.9-2.9); HEMOGLOBIN 11.3 g/dL (13.5-18.0); LYMPHOCYTES # (AUTO) 0.6 X10^3/uL (1.3-2.9); LYMPHOCYTES % (AUTO) 5.2 % (21.0-51.0); MEAN CORPUSCULAR HEMOGLOBIN 31.3 pg (27.0-34.0); MEAN CORPUSCULAR HGB CONC 34.3 g/dL (33.0-35.0); MEAN CORPUSCULAR VOLUME 91.4 fL (80.0-100.0); MEAN PLATELET VOLUME 8.6 fL (7.4-11.0); MONOCYTES # (AUTO) 0.6 x10^3/uL (0.3-0.8); MONOCYTES % (AUTO) 4.9 % (0.0-13.0); NEUTROPHILS % (AUTO) 89.5 % (42.0-75.0); PLATELET COUNT 283 X10^3/uL (150.0-450.0); RED BLOOD COUNT 3.61 X10^6/uL (4.7-6.0); RED CELL DISTRIBUTION WIDTH 12.7 % (11.6-16.5); WHITE BLOOD COUNT 12.3 X10^3/uL (3.6-10.0)
[2020-01-16 06:20] LABS: BLOOD UREA NITROGEN 20 mg/dL (7-18); CALCIUM 8.1 mg/dL (8.5-10.1); CARBON DIOXIDE 26.7 mmol/L (21-32); CHLORIDE 106 mmol/L (98-107); COR NA(FOR HYPERGLY) 139 mmol/L (136-145); CREATININE 0.61 mg/dL (0.70-1.30); SODIUM 138 mmol/L (136-145); eGFR NON BLACK RACES > 60 (>60)
[2020-01-16] MEDS: CLINIMIX 5 %/20 % 1,000 ML with MVI INJ (ADULT) 10 ML, TPN ELECTROLYTES 20 ML, TRACE EL... IV SCH ×8 (08:38→21:49)
[2020-01-16] MEDS: VIBRAMYCIN 100 MG in D5W 250 ML IV 250 ML IV SCH ×2 (08:38→20:50)
[2020-01-16] MEDS: PULMICORT NEB TX 0.5 MG NEB SCH ×2 (09:32→20:49)
--- NOTE | 2020-01-16 10:04 | DR.PROGNOT ---
Hospital Progress Notes - Progress Note for Day of: Progress Note Date: 01/16/20 - Chief Complaint Chief Complaint: post op laparotomy , closure of gastrotomy and creation of permanent gastrostomy [place] type . doing fairly well . on TPN and started on liquid diet .. - Past Medical Family Social History Past Med/Fam/Surg Hx: No changes since H&P Allergies: Allergies No Known Drug Allergies Allergy (Verified 12/30/19 16:19) - Review Of Systems ROS: No change since H&P - Vital Signs Vital Signs: Temperature 98.7 F Pulse Rate [Brachial] 91 Pulse Rate 90 Respiratory Rate 18 Blood Pressure [Right Arm] 118/66 Blood Pressure 126/79 O2 Sat by Pulse Oximetry 99 - Physical Exam Oriented: Not Oriented Eyes: Normal Ear: Normal Nose: Normal Throat: Dry Respiratory: Normal (clear lung ) Cardiovascular: Normal : Normal GI:Auscultation: Decreased GI:Palpation: Other (mild diffuse tenderness , BS hypoactive .) GI: Tenderness: Other (soft abdomen . BS still hypo active ) Skin: Decreased Turgur Musculoskeletal: Motor Deficit Mood Description: Anxious Speech Pattern: Unclear - Laboratory and Diagnostics Result Diagrams: 01/16/20 05:35 01/16/20 05:35 Labs: 12/30/19 23:40 Blood Blood Culture - Final 12/30/19 23:32 Blood Blood Culture - Final 12/31/19 00:07 Urine,Clean Catch Urine Culture - Final Laboratory WBC 12.3 X10^3/uL (3.6-10.0) H 01/16/20 05:35 RBC 3.61 X10^6/uL (4.7-6.0) L 01/16/20 05:35 Hgb 11.3 g/dL (13.5-18.0) L 01/16/20 05:35 Hct 33.0 % (42.0-54.0) L 01/16/20 05:35 MCV 91.4 fL (80.0-100.0) 01/16/20 05:35 MCH 31.3 pg (27.0-34.0) 01/16/20 05:35 MCHC 34.3 g/dL (33.0-35.0) 01/16/20 05:35 RDW 12.7 % (11.6-16.5) 01/16/20 05:35 Plt Count 283 X10^3/uL (150.0-450.0) 01/16/20 05:35 Plt Count Comment Adequate (ADEQUATE) 01/11/20 05:29 MPV 8.6 fL (7.4-11.0) 01/16/20 05:35 Neut % (Auto) 89.5 % (42.0-75.0) H 01/16/20 05:35 Lymph % (Auto) 5.2 % (21.0-51.0) L 01/16/20 05:35 [place] % (Auto) 4.9 % (0.0-13.0) 01/16/20 05:35 Eos % (Auto) 0.3 % (0.9-2.9) L 01/16/20 05:35 Baso % (Auto) 0.1 % (0.2-1.0) L 01/16/20 05:35 Neut # (Auto) 11.0 x10^3/uL (2.2-4.8) H 01/16/20 05:35 Lymph # (Auto) 0.6 X10^3/uL (1.3-2.9) L 01/16/20 05:35 [place] # (Auto) 0.6 x10^3/uL (0.3-0.8) 01/16/20 05:35 Eos # (Auto) 0.0 x10^3/uL (0.0-0.2) 01/16/20 05:35 Baso # (Auto) 0.0 X10^3/uL (0.0-0.1) 01/16/20 05:35 Absolute Nucleated RBC 0.1 /100WBC 01/16/20 05:35 Total Counted 100 01/11/20 05:29 Neutrophils % (Manual) 85 % (39-76) H 01/11/20 05:29 Lymphocytes % (Manual) 12 % (13-43) L 01/11/20 05:29 Monocytes % (Manual) 2 % (4-9) L 01/11/20 05:29 Eosinophils % (Manual) 1 % (0-6) 01/11/20 05:29 Plt Morphology Comment Normal (NORMAL) 01/11/20 05:29 RBC Morphology Normal (NORMAL) 01/11/20 05:29 Sample Site Rb 01/13/20 09:28 ABG pH 7.460 (7.35-7.45) H 01/13/20 09:28 ABG pCO2 47.0 mmHg (35.0-45.0) H 01/13/20 09:28 ABG pO2 77.0 mmHg (80.0-100.0) L 01/13/20 09:28 ABG HCO3 33.4 mmol/L (22-26) H* 01/13/20 09:28 ABG O2 Saturation 96.0 % (90-100) 01/13/20 09:28 ABG Base Excess 8.4 mmol/L (-2.0-2.0) H 01/13/20 09:28 Kole Test Na 01/13/20 09:28 A-a Gradient 14.0 mmHg 01/13/20 09:28 FiO2 21.0 01/13/20 09:28 Blood Gas Comments Rosalba well cb 01/13/20 09:28 Sodium 138 mmol/L (136-145) 01/16/20 05:35 Corrected Sodium 139 mmol/L (136-145) 01/16/20 05:35 Potassium 3.7 mmol/L (3.5-5.1) 01/16/20 05:35 Chloride 106 mmol/L (98-107) 01/16/20 05:35 Carbon Dioxide 26.7 mmol/L (21-32) 01/16/20 05:35 BUN 20 mg/dL (7-18) H 01/16/20 05:35 Creatinine 0.61 mg/dL (0.70-1.30) L 01/16/20 05:35 Est GFR (MDRD) Af Amer > 60 (>60) 01/16/20 05:35 Est GFR (MDRD) Non-Af > 60 (>60) 01/16/20 05:35 Glucose 150 mg/dL (65-99) H 01/16/20 05:35 Lactic Acid 2.0 mmol/L (0.4-2.0) 01/02/20 08:51 Calcium 8.1 mg/dL (8.5-10.1) L 01/16/20 05:35 Corrected Calcium 10.1 mg/dL (8.5-10.1) 01/13/20 05:08 Phosphorus 2.3 mg/dL (2.6-4.7) L 01/14/20 06:11 Magnesium 1.7 mg/dL (1.7-2.9) 01/13/20 05:08 Ferritin 1777 ng/mL (26-388) H 01/02/20 04:20 Total Bilirubin 0.20 mg/dL (0.2-1.0) 01/13/20 05:08 AST 35 Units/L (15-37) 01/13/20 05:08 ALT 36 Units/L (12-78) 01/13/20 05:08 Alkaline Phosphatase 66 Units/L (46-116) 01/13/20 05:08 Ammonia 15 umol/L (11-32) 12/30/19 23:32 C-Reactive Protein 186.60 mg/L (0-3.0) H 01/02/20 04:20 Total Protein 7.0 g/dL (6.4-8.2) 01/13/20 05:08 Albumin 1.7 g/dL (3.4-5.0) L 01/13/20 05:08 Globulin 5.3 g/dL (2.5-4.5) H 01/13/20 05:08 Albumin/Globulin Ratio 0.3 Ratio (1.1-2.1) L 01/13/20 05:08 Prealbumin 12.2 mg/dL (18-35.7) L 01/13/20 05:08 Triglycerides 41 mg/dL (0-150) 01/14/20 06:11 Specimen Type Catherized urine 12/31/19 00:07 Urine Color Yellow (YELLOW) 12/31/19 00:07 Urine Appearance Clear (CLEAR) 12/31/19 00:07 Urine pH 5.0 (5.0 - 8.0) 12/31/19 00:07 Ur Specific [place] 1.020 (1.000-1.030) 12/31/19 00:07 Urine Protein 2+ (NEGATIVE) 12/31/19 00:07 Urine Glucose (UA) Negative (NEGATIVE) 12/31/19 00:07 Urine Ketones 1+ (NEGATIVE) 12/31/19 00:07 Urine Occult Blood 2+ (NEGATIVE) 12/31/19 00:07 Urine Nitrite Negative (NEGATIVE) 12/31/19 00:07 Urine Bilirubin Negative (NEGATIVE) 12/31/19 00:07 Urine Urobilinogen Normal (NORMAL) 12/31/19 00:07 Ur Leukocyte Esterase Negative (NEGATIVE) 12/31/19 00:07 Urine RBC 0-2 /HPF (0-3) 12/31/19 00:07 Urine WBC 0-2 /HPF (0-5) 12/31/19 00:07 Ur Squamous Epith Cells Moderate /HPF (NEGATIVE) 12/31/19 00:07 Urine Bacteria Trace /HPF (NEGATIVE) 12/31/19 00:07 Ur Culture Indicated? No/not indicated 12/31/19 00:07 SARS-CoV-2 (PCR) Negative (NEGATIVE) 01/02/20 09:35 - Assessment and Plan 1: s/p laparotomy and permanent gastrostomy ( [place] ) . on TPN . to start liquid diet today . to use the gastrostomy in am . - Problem Patient Problems: Patient Problems AMS (altered mental status) (Acute) R41.82 Hyperosmolality and hypernatremia (Acute) E87.0 Pneumonia (Acute) J18.9
[2020-01-16] MEDS: ZYPREXA IM SCH (10:15)
[2020-01-16] MEDS: ATIVAN INJ 2 MG VIAL IVP PRN (12:40)
[2020-01-16] MEDS: D5W 1000 ML IV 1,000 ML IV SCH (14:49)
[2020-01-16] MEDS: MORPHINE SULFATE INJ 2 MG INJ IVP PRN (17:12)
[2020-01-17] MEDS: DUONEB 0.5 MG/3 MG (3 mL) NEB SCH ×6 (00:46→21:25)
[2020-01-17] MEDS: ATIVAN INJ 2 MG VIAL IVP PRN ×3 (01:15→16:14)
[2020-01-17] MEDS: DILAUDID INJ IVP PRN ×5 (04:45→22:52)
[2020-01-17] MEDS: ZOSYN VIAL 4.5 GRAMS 4.5 G in NS 100 ML IV + SPIKE MINIBAG* 100 ML IV SCH ×3 (05:50→22:30)
[2020-01-17 06:05] LABS: BASOPHILS # (AUTO) 0.1 X10^3/uL (0.0-0.1); BASOPHILS % (AUTO) 0.2 % (0.2-1.0); EOSINOPHILS # (AUTO) 0.2 x10^3/uL (0.0-0.2); EOSINOPHILS % (AUTO) 0.7 % (0.9-2.9); HEMATOCRIT 29.8 % (42.0-54.0); HEMOGLOBIN 10.3 g/dL (13.5-18.0); LYMPHOCYTES # (AUTO) 0.5 X10^3/uL (1.3-2.9); LYMPHOCYTES % (AUTO) 2.2 % (21.0-51.0); MEAN CORPUSCULAR HEMOGLOBIN 31.9 pg (27.0-34.0); MEAN CORPUSCULAR HGB CONC 34.5 g/dL (33.0-35.0); MEAN CORPUSCULAR VOLUME 92.4 fL (80.0-100.0); MONOCYTES # (AUTO) 0.6 x10^3/uL (0.3-0.8); MONOCYTES % (AUTO) 2.8 % (0.0-13.0); NEUTROPHILS # (AUTO) 21.5 x10^3/uL (2.2-4.8); NEUTROPHILS % (AUTO) 94.1 % (42.0-75.0); PLATELET COUNT 211 X10^3/uL (150.0-450.0); RED BLOOD COUNT 3.22 X10^6/uL (4.7-6.0); RED CELL DISTRIBUTION WIDTH 13.2 % (11.6-16.5); WHITE BLOOD COUNT 22.8 X10^3/uL (3.6-10.0)
[2020-01-17 06:06] LABS: BLOOD UREA NITROGEN 16 mg/dL (7-18); CALCIUM 7.8 mg/dL (8.5-10.1); CARBON DIOXIDE 23.9 mmol/L (21-32); CHLORIDE 104 mmol/L (98-107); COR NA(FOR HYPERGLY) 136 mmol/L (136-145); SODIUM 135 mmol/L (136-145); eGFR NON BLACK RACES > 60 (>60)
[2020-01-17 06:48] LABS: PLATELET MORPHOLOGY COMMENT NORMAL (NORMAL)
--- NOTE | 2020-01-17 08:00 | DR.PROGNOT ---
Hospital Progress Notes - Progress Note for Day of: Progress Note Date: 01/17/20 - Chief Complaint Chief Complaint: Pt is restles and agitated this am . post op laparotomy , closure of gastrotomy and creation of permanent gastrostomy [place] type . WBC is high 22.1 with Lt shift . BUN/Creat normal. afebrile .. on TPN and started on liquid diet .. - Past Medical Family Social History Past Med/Fam/Surg Hx: No changes since H&P Allergies: Allergies No Known Drug Allergies Allergy (Verified 12/30/19 16:19) - Review Of Systems ROS: No change since H&P - Vital Signs Vital Signs: Temperature 98.2 F Pulse Rate [Brachial] 115 Pulse Rate 105 Respiratory Rate 24 Blood Pressure [Right Arm] 124/60 Blood Pressure 126/79 O2 Sat by Pulse Oximetry 100 - Physical Exam Oriented: Not Oriented Eyes: Normal Ear: Normal Nose: Normal Throat: Dry Respiratory: Normal (clear lung ) Cardiovascular: Normal : Normal GI:Auscultation: Decreased GI:Palpation: Other (mild diffuse tenderness , BS hypoactive .) GI: Tenderness: Other (soft abdomen . BS still hypo active ) Skin: Decreased Turgur Musculoskeletal: Motor Deficit Mood Description: Anxious Speech Pattern: Unclear - Laboratory and Diagnostics Result Diagrams: 01/17/20 05:24 01/17/20 05:24 Labs: 12/30/19 23:40 Blood Blood Culture - Final 12/30/19 23:32 Blood Blood Culture - Final 12/31/19 00:07 Urine,Clean Catch Urine Culture - Final Laboratory WBC 22.8 X10^3/uL (3.6-10.0) H D 01/17/20 05:24 RBC 3.22 X10^6/uL (4.7-6.0) L 01/17/20 05:24 Hgb 10.3 g/dL (13.5-18.0) L 01/17/20 05:24 Hct 29.8 % (42.0-54.0) L 01/17/20 05:24 MCV 92.4 fL (80.0-100.0) 01/17/20 05:24 MCH 31.9 pg (27.0-34.0) 01/17/20 05:24 MCHC 34.5 g/dL (33.0-35.0) 01/17/20 05:24 RDW 13.2 % (11.6-16.5) 01/17/20 05:24 Plt Count 211 X10^3/uL (150.0-450.0) 01/17/20 05:24 Plt Count Comment Adequate (ADEQUATE) 01/17/20 05:24 MPV 9.0 fL (7.4-11.0) 01/17/20 05:24 Neut % (Auto) 94.1 % (42.0-75.0) H 01/17/20 05:24 Lymph % (Auto) 2.2 % (21.0-51.0) L 01/17/20 05:24 [place] % (Auto) 2.8 % (0.0-13.0) 01/17/20 05:24 Eos % (Auto) 0.7 % (0.9-2.9) L 01/17/20 05:24 Baso % (Auto) 0.2 % (0.2-1.0) 01/17/20 05:24 Neut # (Auto) 21.5 x10^3/uL (2.2-4.8) H 01/17/20 05:24 Lymph # (Auto) 0.5 X10^3/uL (1.3-2.9) L 01/17/20 05:24 [place] # (Auto) 0.6 x10^3/uL (0.3-0.8) 01/17/20 05:24 Eos # (Auto) 0.2 x10^3/uL (0.0-0.2) 01/17/20 05:24 Baso # (Auto) 0.1 X10^3/uL (0.0-0.1) 01/17/20 05:24 Absolute Nucleated RBC 0.0 /100WBC 01/17/20 05:24 Total Counted 100 01/17/20 05:24 Neutrophils % (Manual) 93 % (39-76) H 01/17/20 05:24 Lymphocytes % (Manual) 4 % (13-43) L 01/17/20 05:24 Monocytes % (Manual) 3 % (4-9) L 01/17/20 05:24 Eosinophils % (Manual) 1 % (0-6) 01/11/20 05:29 Plt Morphology Comment Normal (NORMAL) 01/17/20 05:24 RBC Morphology Normal (NORMAL) 01/17/20 05:24 Sample Site Rb 01/13/20 09:28 ABG pH 7.460 (7.35-7.45) H 01/13/20 09:28 ABG pCO2 47.0 mmHg (35.0-45.0) H 01/13/20 09:28 ABG pO2 77.0 mmHg (80.0-100.0) L 01/13/20 09:28 ABG HCO3 33.4 mmol/L (22-26) H* 01/13/20 09:28 ABG O2 Saturation 96.0 % (90-100) 01/13/20 09:28 ABG Base Excess 8.4 mmol/L (-2.0-2.0) H 01/13/20 09:28 Kole Test Na 01/13/20 09:28 A-a Gradient 14.0 mmHg 01/13/20 09:28 FiO2 21.0 01/13/20 09:28 Blood Gas Comments Rosalba well cb 01/13/20 09:28 Sodium 135 mmol/L (136-145) L 01/17/20 05:24 Corrected Sodium 136 mmol/L (136-145) 01/17/20 05:24 Potassium 3.5 mmol/L (3.5-5.1) 01/17/20 05:24 Chloride 104 mmol/L (98-107) 01/17/20 05:24 Carbon Dioxide 23.9 mmol/L (21-32) 01/17/20 05:24 BUN 16 mg/dL (7-18) 01/17/20 05:24 Creatinine 0.60 mg/dL (0.70-1.30) L 01/17/20 05:24 Est GFR (MDRD) Af Amer > 60 (>60) 01/17/20 05:24 Est GFR (MDRD) Non-Af > 60 (>60) 01/17/20 05:24 Glucose 131 mg/dL (65-99) H 01/17/20 05:24 Lactic Acid 2.0 mmol/L (0.4-2.0) 01/02/20 08:51 Calcium 7.8 mg/dL (8.5-10.1) L 01/17/20 05:24 Corrected Calcium 10.1 mg/dL (8.5-10.1) 01/13/20 05:08 Phosphorus 2.3 mg/dL (2.6-4.7) L 01/14/20 06:11 Magnesium 1.7 mg/dL (1.7-2.9) 01/13/20 05:08 Ferritin 1777 ng/mL (26-388) H 01/02/20 04:20 Total Bilirubin 0.20 mg/dL (0.2-1.0) 01/13/20 05:08 AST 35 Units/L (15-37) 01/13/20 05:08 ALT 36 Units/L (12-78) 01/13/20 05:08 Alkaline Phosphatase 66 Units/L (46-116) 01/13/20 05:08 Ammonia 15 umol/L (11-32) 12/30/19 23:32 C-Reactive Protein 186.60 mg/L (0-3.0) H 01/02/20 04:20 Total Protein 7.0 g/dL (6.4-8.2) 01/13/20 05:08 Albumin 1.7 g/dL (3.4-5.0) L 01/13/20 05:08 Globulin 5.3 g/dL (2.5-4.5) H 01/13/20 05:08 Albumin/Globulin Ratio 0.3 Ratio (1.1-2.1) L 01/13/20 05:08 Prealbumin 12.2 mg/dL (18-35.7) L 01/13/20 05:08 Triglycerides 41 mg/dL (0-150) 01/14/20 06:11 Specimen Type Catherized urine 12/31/19 00:07 Urine Color Yellow (YELLOW) 12/31/19 00:07 Urine Appearance Clear (CLEAR) 12/31/19 00:07 Urine pH 5.0 (5.0 - 8.0) 12/31/19 00:07 Ur Specific [place] 1.020 (1.000-1.030) 12/31/19 00:07 Urine Protein 2+ (NEGATIVE) 12/31/19 00:07 Urine Glucose (UA) Negative (NEGATIVE) 12/31/19 00:07 Urine Ketones 1+ (NEGATIVE) 12/31/19 00:07 Urine Occult Blood 2+ (NEGATIVE) 12/31/19 00:07 Urine Nitrite Negative (NEGATIVE) 12/31/19 00:07 Urine Bilirubin Negative (NEGATIVE) 12/31/19 00:07 Urine Urobilinogen Normal (NORMAL) 12/31/19 00:07 Ur Leukocyte Esterase Negative (NEGATIVE) 12/31/19 00:07 Urine RBC 0-2 /HPF (0-3) 12/31/19 00:07 Urine WBC 0-2 /HPF (0-5) 12/31/19 00:07 Ur Squamous Epith Cells Moderate /HPF (NEGATIVE) 12/31/19 00:07 Urine Bacteria Trace /HPF (NEGATIVE) 12/31/19 00:07 Ur Culture Indicated? No/not indicated 12/31/19 00:07 SARS-CoV-2 (PCR) Negative (NEGATIVE) 01/02/20 09:35 - Assessment and Plan 1: s/p laparotomy and permanent gastrostomy ( [place] ) . on TPN . to start Ensure feeding today via gastrostomy . same TPN for now till tube feeding is tolerated well . - Problem Patient Problems: Patient Problems AMS (altered mental status) (Acute) R41.82 Hyperosmolality and hypernatremia (Acute) E87.0 Pneumonia (Acute) J18.9
[2020-01-17] MEDS: PULMICORT NEB TX 0.5 MG NEB SCH ×2 (09:02→21:25)
[2020-01-17] MEDS: CLINIMIX 5 %/20 % 1,000 ML with MVI INJ (ADULT) 10 ML, TPN ELECTROLYTES 20 ML, TRACE EL... IV SCH ×8 (10:14→22:54)
[2020-01-17] MEDS: VIBRAMYCIN 100 MG in D5W 250 ML IV 250 ML IV SCH ×2 (10:14→20:46)
[2020-01-17] MEDS: ZYPREXA IM SCH (10:41)
[2020-01-17] MEDS: MORPHINE SULFATE INJ 2 MG INJ IVP PRN (11:56)
[2020-01-17] MEDS: D5W 1000 ML IV 1,000 ML IV SCH ×2 (14:03→18:25)
[2020-01-17] MEDS: OFIRMEV IV 1000 MG VIAL 1,000 MG/100 ML VIAL IV PRN (17:08)
[2020-01-18] MEDS: DUONEB 0.5 MG/3 MG (3 mL) NEB SCH ×6 (00:59→21:06)
[2020-01-18 05:21] LABS: BASOPHILS # (AUTO) 0.1 X10^3/uL (0.0-0.1); BASOPHILS % (AUTO) 0.3 % (0.2-1.0); EOSINOPHILS # (AUTO) 0.2 x10^3/uL (0.0-0.2); EOSINOPHILS % (AUTO) 1.3 % (0.9-2.9); HEMATOCRIT 28.6 % (42.0-54.0); LYMPHOCYTES # (AUTO) 0.4 X10^3/uL (1.3-2.9); LYMPHOCYTES % (AUTO) 2.5 % (21.0-51.0); MEAN CORPUSCULAR HGB CONC 34.9 g/dL (33.0-35.0); MEAN CORPUSCULAR VOLUME 91.6 fL (80.0-100.0); MONOCYTES # (AUTO) 0.8 x10^3/uL (0.3-0.8); MONOCYTES % (AUTO) 4.6 % (0.0-13.0); NEUTROPHILS # (AUTO) 15.7 x10^3/uL (2.2-4.8); NEUTROPHILS % (AUTO) 91.3 % (42.0-75.0); PLATELET COUNT 196 X10^3/uL (150.0-450.0); RED BLOOD COUNT 3.12 X10^6/uL (4.7-6.0); RED CELL DISTRIBUTION WIDTH 13.3 % (11.6-16.5); WHITE BLOOD COUNT 17.2 X10^3/uL (3.6-10.0)
[2020-01-18 05:32] LABS: ALANINE AMINOTRANSFERASE 61 Units/L (12-78); ALBUMIN 1.4 g/dL (3.4-5.0); ALKALINE PHOSPHATASE 83 Units/L (46-116); ASPARTATE AMINO TRANSFERASE 49 Units/L (15-37); BLOOD UREA NITROGEN 14 mg/dL (7-18); CHLORIDE 104 mmol/L (98-107); COR CA(FOR HYPOALB) 10.1 mg/dL (8.5-10.1); COR NA(FOR HYPERGLY) 140 mmol/L (136-145); CREATININE 0.65 mg/dL (0.70-1.30); MAGNESIUM 1.4 mg/dL (1.7-2.9); SODIUM 140 mmol/L (136-145); eGFR NON BLACK RACES > 60 (>60)
[2020-01-18] MEDS: DILAUDID INJ IVP PRN ×2 (05:33→10:36)
[2020-01-18] MEDS: ZOSYN VIAL 4.5 GRAMS 4.5 G in NS 100 ML IV + SPIKE MINIBAG* 100 ML IV SCH ×3 (05:33→21:09)
[2020-01-18 05:35] LABS: PLATELET MORPHOLOGY COMMENT NORMAL (NORMAL)
[2020-01-18 05:39] LABS: ABG BASE EXCESS 7.4 mmol/L (-2.0-2.0)
[2020-01-18 05:40] LABS: ABG HCO3 31.2 mmol/L (22-26)
--- NOTE | 2020-01-18 05:45 | RAD ---
HISTORYSOB pneumoniaSTUDYPortable AP [id number]/18/2020FINDINGSContinued normal heart size. Increasing and recurrent infiltrate in the left lower lobe as well as in the right upper lobe. No pneumothorax or pleural fluid. Endotrachea l tube no longer identified.IMPRESSIONInterval extubation. Increasing airspace disease/pneumonia righ t upper and left lower lobes.Electronically signed by: WALLACE SARMIENTO (Jan 18, 2020 05:43:48)
[2020-01-18] MEDS ORDERED: HumuLIN R SUBCUT PRN (06:53)
--- NOTE | 2020-01-18 08:05 | PCM.PROG ---
Progress Note - Progress Note for Day of Date of Exam: 01/18/20 - Subjective Subjective: IS BEING TREATED FOR BILATERAL PNEUMONIA, AMS, AND HYPERNATREMIA. HE HAS HAD HIS PEG TUBE REPLACED TWICE SINCE ADMISSION DUE TO HIM MANUALLY REMOVING IT. HE IS DAY 2 STATUS POST LAPAROTOMY AND CLOSURE OF GASTROSTOMY SIT ON THE ANTERIOR WALL OF THE STOMACH WELL CREATION OF A PERMANENT GASTROSTOMY. TODAY, HE IS LYING IN BED WITH EYES CLOSED ON MORNING ROUNDS. HE DOES OPEN EYES TO VERBAL STIMULI. ON EXAMINATION, HEART IS REGULAR IN RATE AND RHYTHM. BILATERAL LUNGS ARE NOTED WITH DIMINISHED LUNG SOUNDS THROUGHOUT. ABDOMEN IS ROUND, SOFT, AND NOTED WITH NORMAL BOWEL SOUNDS. HE DOES HAVE A GASTROSTOMY WITH COLOSTOMY BAG SEALING IN CASE OF LEAKAGE. STOMA IS PINK AND MOIST. HIS VITALS THIS MORNING ARE: 97.9-90-18-100%-117/67. LABS WERE OBTAINED. ABNORMAL LAB VALUES INCLUDE THE FOLLOWING: WBC 17.2, RBC 3.12, HGB 10.0, HCT 28.6, POTASSIUM 3.4, CREATININE 0.65, GLUCOSE 119, CALCIUM 8.0, MAGNESIUM 1.4, AST 49, TOTAL PROTEIN 6.0, ALBUMIN 1.4, GLOBULIN 4.6. BLOOD CULTURES ARE PENDING. A CHEST XRAY WAS OBTAINED AND REVEALED: Continued normal heart size. Increasing and recurrent infiltrate in the left lower lobe as well as in the right upper lobe. No pneumothorax or pleural fluid. Endotracheal tube no longer identified. WE WILL CONTINUE WITH IB ANTIBIOTICS, NEB TX, AND CURRENT PLAN OF CARE TODAY. OTHERWISE, WE WILL FOLLOW UP WITH AM LABS AND CONTINUE TO MONITOR. - Past Medical Family Social History Past Med/Fam/Surg Hx: No changes since H&P Allergies: Allergies No Known Drug Allergies Allergy (Verified 12/30/19 16:19) - Review of Systems ROS: No change since H&P - Vital Signs and I&O's Vital Signs: Temperature 97.9 F Pulse Rate [Brachial] 90 Pulse Rate 102 Respiratory Rate 22 Blood Pressure [Right Arm] 117/67 Blood Pressure 126/79 O2 Sat by Pulse Oximetry 100 Intake and Output: Intake & Output 01/15/20 01/16/20 01/17/20 01/18/20 11:59 11:59 11:59 11:59 Intake Total 1235 / 1235 3445 / 3445 3196 / 3196 2670 / 2670 Output Total 1449 / 1449 Balance 1230 / 1230 1995 886 / 7 795 / 8693 - Physical Exam Oriented: Not Oriented Eyes: Normal Ear: Normal Nose: Normal Throat: Dry Respiratory: Normal (clear lung ) Cardiovascular: Normal : Normal Auscultation: Bowel Sounds: Decreased Palpation: Normal Tenderness: Other (soft abdomen . BS still hypo active ) Skin: Decreased Turgur Musculoskeletal: Motor Deficit Mood Description: Anxious Speech Pattern: Unclear - Laboratory and Diagnostics Result Diagrams: 01/18/20 05:03 01/18/20 05:03 Labs: 12/30/19 23:40 Blood Blood Culture - Final 12/30/19 23:32 Blood Blood Culture - Final 12/31/19 00:07 Urine,Clean Catch Urine Culture - Final Laboratory WBC 17.2 X10^3/uL (3.6-10.0) H 01/18/20 05:03 RBC 3.12 X10^6/uL (4.7-6.0) L 01/18/20 05:03 Hgb 10.0 g/dL (13.5-18.0) L 01/18/20 05:03 Hct 28.6 % (42.0-54.0) L 01/18/20 05:03 MCV 91.6 fL (80.0-100.0) 01/18/20 05:03 MCH 32.0 pg (27.0-34.0) 01/18/20 05:03 MCHC 34.9 g/dL (33.0-35.0) 01/18/20 05:03 RDW 13.3 % (11.6-16.5) 01/18/20 05:03 Plt Count 196 X10^3/uL (150.0-450.0) 01/18/20 05:03 Plt Count Comment Adequate (ADEQUATE) 01/18/20 05:03 MPV 9.0 fL (7.4-11.0) 01/18/20 05:03 Neut % (Auto) 91.3 % (42.0-75.0) H 01/18/20 05:03 Lymph % (Auto) 2.5 % (21.0-51.0) L 01/18/20 05:03 [place] % (Auto) 4.6 % (0.0-13.0) 01/18/20 05:03 Eos % (Auto) 1.3 % (0.9-2.9) 01/18/20 05:03 Baso % (Auto) 0.3 % (0.2-1.0) 01/18/20 05:03 Neut # (Auto) 15.7 x10^3/uL (2.2-4.8) H 01/18/20 05:03 Lymph # (Auto) 0.4 X10^3/uL (1.3-2.9) L 01/18/20 05:03 [place] # (Auto) 0.8 x10^3/uL (0.3-0.8) 01/18/20 05:03 Eos # (Auto) 0.2 x10^3/uL (0.0-0.2) 01/18/20 05:03 Baso # (Auto) 0.1 X10^3/uL (0.0-0.1) 01/18/20 05:03 Absolute Nucleated RBC 0.0 /100WBC 01/18/20 05:03 Total Counted 100 01/18/20 05:03 Neutrophils % (Manual) 95 % (39-76) H 01/18/20 05:03 Lymphocytes % (Manual) 4 % (13-43) L 01/18/20 05:03 Monocytes % (Manual) 3 % (4-9) L 01/17/20 05:24 Eosinophils % (Manual) 1 % (0-6) 01/18/20 05:03 Plt Morphology Comment Normal (NORMAL) 01/18/20 05:03 RBC Morphology Normal (NORMAL) 01/18/20 05:03 Sample Site Rb 01/18/20 05:35 ABG pH 7.500 (7.35-7.45) H 01/18/20 05:35 ABG pCO2 40.0 mmHg (35.0-45.0) 01/18/20 05:35 ABG pO2 82.0 mmHg (80.0-100.0) 01/18/20 05:35 ABG HCO3 31.2 mmol/L (22-26) H* 01/18/20 05:35 ABG O2 Saturation 97.0 % (90-100) 01/18/20 05:35 ABG Base Excess 7.4 mmol/L (-2.0-2.0) H 01/18/20 05:35 Kole Test Na 01/18/20 05:35 A-a Gradient 18.0 mmHg 01/18/20 05:35 FiO2 21.0 01/18/20 05:35 Blood Gas Comments Rosalba abg well-mtf 01/18/20 05:35 Sodium 140 mmol/L (136-145) 01/18/20 05:03 Corrected Sodium 140 mmol/L (136-145) 01/18/20 05:03 Potassium 3.4 mmol/L (3.5-5.1) L 01/18/20 05:03 Chloride 104 mmol/L (98-107) 01/18/20 05:03 Carbon Dioxide 29.0 mmol/L (21-32) 01/18/20 05:03 BUN 14 mg/dL (7-18) 01/18/20 05:03 Creatinine 0.65 mg/dL (0.70-1.30) L 01/18/20 05:03 Est GFR (MDRD) Af Amer > 60 (>60) 01/18/20 05:03 Est GFR (MDRD) Non-Af > 60 (>60) 01/18/20 05:03 Glucose 119 mg/dL (65-99) H 01/18/20 05:03 Lactic Acid 2.0 mmol/L (0.4-2.0) 01/02/20 08:51 Calcium 8.0 mg/dL (8.5-10.1) L 01/18/20 05:03 Corrected Calcium 10.1 mg/dL (8.5-10.1) 01/18/20 05:03 Phosphorus 2.3 mg/dL (2.6-4.7) L 01/14/20 06:11 Magnesium 1.4 mg/dL (1.7-2.9) L 01/18/20 05:03 Ferritin 1777 ng/mL (26-388) H 01/02/20 04:20 Total Bilirubin 0.40 mg/dL (0.2-1.0) 01/18/20 05:03 AST 49 Units/L (15-37) H 01/18/20 05:03 ALT 61 Units/L (12-78) 01/18/20 05:03 Alkaline Phosphatase 83 Units/L (46-116) 01/18/20 05:03 Ammonia 15 umol/L (11-32) 12/30/19 23:32 C-Reactive Protein 186.60 mg/L (0-3.0) H 01/02/20 04:20 Total Protein 6.0 g/dL (6.4-8.2) L 01/18/20 05:03 Albumin 1.4 g/dL (3.4-5.0) L 01/18/20 05:03 Globulin 4.6 g/dL (2.5-4.5) H 01/18/20 05:03 Albumin/Globulin Ratio 0.3 Ratio (1.1-2.1) L 01/18/20 05:03 Prealbumin 12.2 mg/dL (18-35.7) L 01/13/20 05:08 Triglycerides 41 mg/dL (0-150) 01/14/20 06:11 Specimen Type Catherized urine 12/31/19 00:07 Urine Color Yellow (YELLOW) 12/31/19 00:07 Urine Appearance Clear (CLEAR) 12/31/19 00:07 Urine pH 5.0 (5.0 - 8.0) 12/31/19 00:07 Ur Specific [place] 1.020 (1.000-1.030) 12/31/19 00:07 Urine Protein 2+ (NEGATIVE) 12/31/19 00:07 Urine Glucose (UA) Negative (NEGATIVE) 12/31/19 00:07 Urine Ketones 1+ (NEGATIVE) 12/31/19 00:07 Urine Occult Blood 2+ (NEGATIVE) 12/31/19 00:07 Urine Nitrite Negative (NEGATIVE) 12/31/19 00:07 Urine Bilirubin Negative (NEGATIVE) 12/31/19 00:07 Urine Urobilinogen Normal (NORMAL) 12/31/19 00:07 Ur Leukocyte Esterase Negative (NEGATIVE) 12/31/19 00:07 Urine RBC 0-2 /HPF (0-3) 12/31/19 00:07 Urine WBC 0-2 /HPF (0-5) 12/31/19 00:07 Ur Squamous Epith Cells Moderate /HPF (NEGATIVE) 12/31/19 00:07 Urine Bacteria Trace /HPF (NEGATIVE) 12/31/19 00:07 Ur Culture Indicated? No/not indicated 12/31/19 00:07 SARS-CoV-2 (PCR) Negative (NEGATIVE) 01/02/20 09:35
[2020-01-18] MEDS: ATIVAN INJ 2 MG VIAL IVP PRN (09:02)
--- NOTE | 2020-01-18 09:44 | DR.PROGNOT ---
Hospital Progress Notes - Progress Note for Day of: Progress Note Date: 01/18/20 - Chief Complaint Chief Complaint: Pt is still restless and agitat but no acute distress. post op laparotomy , closure of gastrotomy and creation of permanent gastrostomy [place] type . WBC is high 14.2 with Lt shift . BUN/Creat normal. afebrile .. on TPN and started on feeding via gastrostomy . - Past Medical Family Social History Past Med/Fam/Surg Hx: No changes since H&P Allergies: Allergies No Known Drug Allergies Allergy (Verified 12/30/19 16:19) - Review Of Systems ROS: No change since H&P - Vital Signs Vital Signs: Temperature 97.9 F Pulse Rate [Brachial] 93 Pulse Rate 102 Respiratory Rate 20 Blood Pressure [Right Arm] 102/61 Blood Pressure 126/79 O2 Sat by Pulse Oximetry 96 - Physical Exam Oriented: Not Oriented Eyes: Normal Ear: Normal Nose: Normal Throat: Dry Respiratory: Normal (clear lung ) Cardiovascular: Normal : Normal GI:Auscultation: Decreased GI:Palpation: Normal GI: Tenderness: Other (soft abdomen . BS still hypo active ) Skin: Decreased Turgur Musculoskeletal: Motor Deficit Mood Description: Anxious Speech Pattern: Unclear - Laboratory and Diagnostics Result Diagrams: 01/18/20 05:03 01/18/20 05:03 Labs: 12/30/19 23:40 Blood Blood Culture - Final 12/30/19 23:32 Blood Blood Culture - Final 12/31/19 00:07 Urine,Clean Catch Urine Culture - Final Laboratory WBC 17.2 X10^3/uL (3.6-10.0) H 01/18/20 05:03 RBC 3.12 X10^6/uL (4.7-6.0) L 01/18/20 05:03 Hgb 10.0 g/dL (13.5-18.0) L 01/18/20 05:03 Hct 28.6 % (42.0-54.0) L 01/18/20 05:03 MCV 91.6 fL (80.0-100.0) 01/18/20 05:03 MCH 32.0 pg (27.0-34.0) 01/18/20 05:03 MCHC 34.9 g/dL (33.0-35.0) 01/18/20 05:03 RDW 13.3 % (11.6-16.5) 01/18/20 05:03 Plt Count 196 X10^3/uL (150.0-450.0) 01/18/20 05:03 Plt Count Comment Adequate (ADEQUATE) 01/18/20 05:03 MPV 9.0 fL (7.4-11.0) 01/18/20 05:03 Neut % (Auto) 91.3 % (42.0-75.0) H 01/18/20 05:03 Lymph % (Auto) 2.5 % (21.0-51.0) L 01/18/20 05:03 [place] % (Auto) 4.6 % (0.0-13.0) 01/18/20 05:03 Eos % (Auto) 1.3 % (0.9-2.9) 01/18/20 05:03 Baso % (Auto) 0.3 % (0.2-1.0) 01/18/20 05:03 Neut # (Auto) 15.7 x10^3/uL (2.2-4.8) H 01/18/20 05:03 Lymph # (Auto) 0.4 X10^3/uL (1.3-2.9) L 01/18/20 05:03 [place] # (Auto) 0.8 x10^3/uL (0.3-0.8) 01/18/20 05:03 Eos # (Auto) 0.2 x10^3/uL (0.0-0.2) 01/18/20 05:03 Baso # (Auto) 0.1 X10^3/uL (0.0-0.1) 01/18/20 05:03 Absolute Nucleated RBC 0.0 /100WBC 01/18/20 05:03 Total Counted 100 01/18/20 05:03 Neutrophils % (Manual) 95 % (39-76) H 01/18/20 05:03 Lymphocytes % (Manual) 4 % (13-43) L 01/18/20 05:03 Monocytes % (Manual) 3 % (4-9) L 01/17/20 05:24 Eosinophils % (Manual) 1 % (0-6) 01/18/20 05:03 Plt Morphology Comment Normal (NORMAL) 01/18/20 05:03 RBC Morphology Normal (NORMAL) 01/18/20 05:03 Sample Site Rbra 01/18/20 05:35 ABG pH 7.500 (7.35-7.45) H 01/18/20 05:35 ABG pCO2 40.0 mmHg (35.0-45.0) 01/18/20 05:35 ABG pO2 82.0 mmHg (80.0-100.0) 01/18/20 05:35 ABG HCO3 31.2 mmol/L (22-26) H* 01/18/20 05:35 ABG O2 Saturation 97.0 % (90-100) 01/18/20 05:35 ABG Base Excess 7.4 mmol/L (-2.0-2.0) H 01/18/20 05:35 Kole Test Na 01/18/20 05:35 A-a Gradient 18.0 mmHg 01/18/20 05:35 FiO2 21.0 01/18/20 05:35 Blood Gas Comments Rosalba abg well-mtf 01/18/20 05:35 Sodium 140 mmol/L (136-145) 01/18/20 05:03 Corrected Sodium 140 mmol/L (136-145) 01/18/20 05:03 Potassium 3.4 mmol/L (3.5-5.1) L 01/18/20 05:03 Chloride 104 mmol/L (98-107) 01/18/20 05:03 Carbon Dioxide 29.0 mmol/L (21-32) 01/18/20 05:03 BUN 14 mg/dL (7-18) 01/18/20 05:03 Creatinine 0.65 mg/dL (0.70-1.30) L 01/18/20 05:03 Est GFR (MDRD) Af Amer > 60 (>60) 01/18/20 05:03 Est GFR (MDRD) Non-Af > 60 (>60) 01/18/20 05:03 Glucose 119 mg/dL (65-99) H 01/18/20 05:03 Lactic Acid 2.0 mmol/L (0.4-2.0) 01/02/20 08:51 Calcium 8.0 mg/dL (8.5-10.1) L 01/18/20 05:03 Corrected Calcium 10.1 mg/dL (8.5-10.1) 01/18/20 05:03 Phosphorus 2.3 mg/dL (2.6-4.7) L 01/14/20 06:11 Magnesium 1.4 mg/dL (1.7-2.9) L 01/18/20 05:03 Ferritin 1777 ng/mL (26-388) H 01/02/20 04:20 Total Bilirubin 0.40 mg/dL (0.2-1.0) 01/18/20 05:03 AST 49 Units/L (15-37) H 01/18/20 05:03 ALT 61 Units/L (12-78) 01/18/20 05:03 Alkaline Phosphatase 83 Units/L (46-116) 01/18/20 05:03 Ammonia 15 umol/L (11-32) 12/30/19 23:32 C-Reactive Protein 186.60 mg/L (0-3.0) H 01/02/20 04:20 Total Protein 6.0 g/dL (6.4-8.2) L 01/18/20 05:03 Albumin 1.4 g/dL (3.4-5.0) L 01/18/20 05:03 Globulin 4.6 g/dL (2.5-4.5) H 01/18/20 05:03 Albumin/Globulin Ratio 0.3 Ratio (1.1-2.1) L 01/18/20 05:03 Prealbumin 12.2 mg/dL (18-35.7) L 01/13/20 05:08 Triglycerides 41 mg/dL (0-150) 01/14/20 06:11 Specimen Type Catherized urine 12/31/19 00:07 Urine Color Yellow (YELLOW) 12/31/19 00:07 Urine Appearance Clear (CLEAR) 12/31/19 00:07 Urine pH 5.0 (5.0 - 8.0) 12/31/19 00:07 Ur Specific [place] 1.020 (1.000-1.030) 12/31/19 00:07 Urine Protein 2+ (NEGATIVE) 12/31/19 00:07 Urine Glucose (UA) Negative (NEGATIVE) 12/31/19 00:07 Urine Ketones 1+ (NEGATIVE) 12/31/19 00:07 Urine Occult Blood 2+ (NEGATIVE) 12/31/19 00:07 Urine Nitrite Negative (NEGATIVE) 12/31/19 00:07 Urine Bilirubin Negative (NEGATIVE) 12/31/19 00:07 Urine Urobilinogen Normal (NORMAL) 12/31/19 00:07 Ur Leukocyte Esterase Negative (NEGATIVE) 12/31/19 00:07 Urine RBC 0-2 /HPF (0-3) 12/31/19 00:07 Urine WBC 0-2 /HPF (0-5) 12/31/19 00:07 Ur Squamous Epith Cells Moderate /HPF (NEGATIVE) 12/31/19 00:07 Urine Bacteria Trace /HPF (NEGATIVE) 12/31/19 00:07 Ur Culture Indicated? No/not indicated 12/31/19 00:07 SARS-CoV-2 (PCR) Negative (NEGATIVE) 01/02/20 09:35 - Assessment and Plan 1: s/p laparotomy and permanent gastrostomy ( [place] ) . on TPN . to start Ensure feeding today via gastrostomy . same TPN for now till tube feeding is tolerated well . - Problem Patient Problems: Patient Problems AMS (altered mental status) (Acute) R41.82 Hyperosmolality and hypernatremia (Acute) E87.0 Pneumonia (Acute) J18.9
[2020-01-18] MEDS: PULMICORT NEB TX 0.5 MG NEB SCH ×2 (09:47→21:06)
[2020-01-18] MEDS: CLINIMIX 5 %/20 % 1,000 ML with MVI INJ (ADULT) 10 ML, TPN ELECTROLYTES 20 ML, TRACE EL... IV SCH ×10 (10:00→21:10)
[2020-01-18] MEDS: VIBRAMYCIN 100 MG in D5W 250 ML IV 250 ML IV SCH ×2 (10:00→20:23)
[2020-01-18] MEDS: ZYPREXA IM SCH (10:00)
[2020-01-18] MEDS: D5W 1000 ML IV 1,000 ML IV SCH (14:12)
[2020-01-19] MEDS: DUONEB 0.5 MG/3 MG (3 mL) NEB SCH ×6 (01:51→20:26)
[2020-01-19] MEDS: ATIVAN INJ 2 MG VIAL IVP PRN ×3 (03:59→20:45)
[2020-01-19] MEDS: ZOSYN VIAL 4.5 GRAMS 4.5 G in NS 100 ML IV + SPIKE MINIBAG* 100 ML IV SCH ×3 (05:15→21:00)
--- NOTE | 2020-01-19 05:56 | RAD ---
HISTORYSOB pneumoniaSTUDYAP aducxWLTVUKUIOB08/21/2020FINDINGSContinued normal heart size and contour. Persistent infiltrates and airspace disease right upper and left lower lobes. There is no new abnormality demonstrated. Stable p osition of right subclavian line.IMPRESSIONPersistent bilateral infiltrates/pneumonia. No significant change.Electronically signed by: WALLACE SARMIENTO (Jan 19, 2020 05:55:13)
[2020-01-19 06:17] LABS: BASOPHILS % (AUTO) 0.3 % (0.2-1.0); EOSINOPHILS # (AUTO) 0.3 x10^3/uL (0.0-0.2); EOSINOPHILS % (AUTO) 2.2 % (0.9-2.9); HEMATOCRIT 26.1 % (42.0-54.0); HEMOGLOBIN 9.2 g/dL (13.5-18.0); LYMPHOCYTES # (AUTO) 0.7 X10^3/uL (1.3-2.9); LYMPHOCYTES % (AUTO) 6.4 % (21.0-51.0); MEAN CORPUSCULAR HEMOGLOBIN 32.2 pg (27.0-34.0); MEAN CORPUSCULAR HGB CONC 35.2 g/dL (33.0-35.0); MEAN CORPUSCULAR VOLUME 91.4 fL (80.0-100.0); MONOCYTES # (AUTO) 0.7 x10^3/uL (0.3-0.8); MONOCYTES % (AUTO) 6.1 % (0.0-13.0); NEUTROPHILS # (AUTO) 9.7 x10^3/uL (2.2-4.8); PLATELET COUNT 213 X10^3/uL (150.0-450.0); RED BLOOD COUNT 2.86 X10^6/uL (4.7-6.0); RED CELL DISTRIBUTION WIDTH 13.4 % (11.6-16.5); WHITE BLOOD COUNT 11.4 X10^3/uL (3.6-10.0)
[2020-01-19 06:30] LABS: ALANINE AMINOTRANSFERASE 296 Units/L (12-78); ALBUMIN 1.4 g/dL (3.4-5.0); ALKALINE PHOSPHATASE 160 Units/L (46-116); ASPARTATE AMINO TRANSFERASE 255 Units/L (15-37); BLOOD UREA NITROGEN 13 mg/dL (7-18); CALCIUM 8.3 mg/dL (8.5-10.1); CARBON DIOXIDE 30.9 mmol/L (21-32); CHLORIDE 104 mmol/L (98-107); COR CA(FOR HYPOALB) 10.4 mg/dL (8.5-10.1); CREATININE 0.74 mg/dL (0.70-1.30); SODIUM 140 mmol/L (136-145); TOTAL PROTEIN 5.9 g/dL (6.4-8.2); eGFR NON BLACK RACES > 60 (>60)
[2020-01-19] MEDS ORDERED: MAGNESIUM SULFATE 1 GRAM/100 mL PREMIX 1 GM/100 ML BAG IV PRN (08:51)
--- NOTE | 2020-01-19 09:24 | DR.PROGNOT ---
Hospital Progress Notes - Progress Note for Day of: Progress Note Date: 01/19/20 - Chief Complaint Chief Complaint: more alert and responding verbal commands. tolerating feedings. moderate elevated liver enzymes . afebrile .. - Past Medical Family Social History Past Med/Fam/Surg Hx: No changes since H&P Allergies: Allergies No Known Drug Allergies Allergy (Verified 12/30/19 16:19) - Review Of Systems ROS: No change since H&P - Vital Signs Vital Signs: Temperature 98.8 F Pulse Rate [Brachial] 95 Pulse Rate 90 Respiratory Rate 20 Blood Pressure [Right Arm] 148/65 Blood Pressure 126/79 O2 Sat by Pulse Oximetry 97 - Physical Exam Oriented: Not Oriented Eyes: Normal Ear: Normal Nose: Normal Throat: Dry Respiratory: Normal (clear lung ) Cardiovascular: Normal : Normal GI:Auscultation: Decreased GI:Palpation: Normal GI: Tenderness: Other (soft abdomen . BS + ) Skin: Decreased Turgur Musculoskeletal: Motor Deficit Mood Description: Anxious Speech Pattern: Unclear - Laboratory and Diagnostics Result Diagrams: 01/19/20 05:21 01/19/20 05:21 Labs: 12/30/19 23:40 Blood Blood Culture - Final 12/30/19 23:32 Blood Blood Culture - Final 12/31/19 00:07 Urine,Clean Catch Urine Culture - Final Laboratory WBC 11.4 X10^3/uL (3.6-10.0) H 01/19/20 05:21 RBC 2.86 X10^6/uL (4.7-6.0) L 01/19/20 05:21 Hgb 9.2 g/dL (13.5-18.0) L 01/19/20 05:21 Hct 26.1 % (42.0-54.0) L 01/19/20 05:21 MCV 91.4 fL (80.0-100.0) 01/19/20 05:21 MCH 32.2 pg (27.0-34.0) 01/19/20 05:21 MCHC 35.2 g/dL (33.0-35.0) H 01/19/20 05:21 RDW 13.4 % (11.6-16.5) 01/19/20 05:21 Plt Count 213 X10^3/uL (150.0-450.0) 01/19/20 05:21 Plt Count Comment Adequate (ADEQUATE) 01/18/20 05:03 MPV 9.0 fL (7.4-11.0) 01/19/20 05:21 Neut % (Auto) 85.0 % (42.0-75.0) H 01/19/20 05:21 Lymph % (Auto) 6.4 % (21.0-51.0) L 01/19/20 05:21 [place] % (Auto) 6.1 % (0.0-13.0) 01/19/20 05:21 Eos % (Auto) 2.2 % (0.9-2.9) 01/19/20 05:21 Baso % (Auto) 0.3 % (0.2-1.0) 01/19/20 05:21 Neut # (Auto) 9.7 x10^3/uL (2.2-4.8) H 01/19/20 05:21 Lymph # (Auto) 0.7 X10^3/uL (1.3-2.9) L 01/19/20 05:21 [place] # (Auto) 0.7 x10^3/uL (0.3-0.8) 01/19/20 05:21 Eos # (Auto) 0.3 x10^3/uL (0.0-0.2) H 01/19/20 05:21 Baso # (Auto) 0.0 X10^3/uL (0.0-0.1) 01/19/20 05:21 Absolute Nucleated RBC 0.0 /100WBC 01/19/20 05:21 Total Counted 100 01/18/20 05:03 Neutrophils % (Manual) 95 % (39-76) H 01/18/20 05:03 Lymphocytes % (Manual) 4 % (13-43) L 01/18/20 05:03 Monocytes % (Manual) 3 % (4-9) L 01/17/20 05:24 Eosinophils % (Manual) 1 % (0-6) 01/18/20 05:03 Plt Morphology Comment Normal (NORMAL) 01/18/20 05:03 RBC Morphology Normal (NORMAL) 01/18/20 05:03 Sample Site [facility] 01/18/20 05:35 ABG pH 7.500 (7.35-7.45) H 01/18/20 05:35 ABG pCO2 40.0 mmHg (35.0-45.0) 01/18/20 05:35 ABG pO2 82.0 mmHg (80.0-100.0) 01/18/20 05:35 ABG HCO3 31.2 mmol/L (22-26) H* 01/18/20 05:35 ABG O2 Saturation 97.0 % (90-100) 01/18/20 05:35 ABG Base Excess 7.4 mmol/L (-2.0-2.0) H 01/18/20 05:35 [place] Test Na 01/18/20 05:35 A-a Gradient 18.0 mmHg 01/18/20 05:35 FiO2 21.0 01/18/20 05:35 Blood Gas Comments Rosalba abg well-mtf 01/18/20 05:35 Sodium 140 mmol/L (136-145) 01/19/20 05:21 Corrected Sodium TNP 01/19/20 05:21 Potassium 3.2 mmol/L (3.5-5.1) L 01/19/20 05:21 Chloride 104 mmol/L (98-107) 01/19/20 05:21 Carbon Dioxide 30.9 mmol/L (21-32) 01/19/20 05:21 BUN 13 mg/dL (7-18) 01/19/20 05:21 Creatinine 0.74 mg/dL (0.70-1.30) 01/19/20 05:21 Est GFR (MDRD) Af Amer > 60 (>60) 01/19/20 05:21 Est GFR (MDRD) Non-Af > 60 (>60) 01/19/20 05:21 Glucose 107 mg/dL (65-99) H 01/19/20 05:21 POC Glucose (mg/dL) 121 mg/dL (65-99) H 01/19/20 06:34 Lactic Acid 2.0 mmol/L (0.4-2.0) 01/02/20 08:51 Calcium 8.3 mg/dL (8.5-10.1) L 01/19/20 05:21 Corrected Calcium 10.4 mg/dL (8.5-10.1) H 01/19/20 05:21 Phosphorus 2.3 mg/dL (2.6-4.7) L 01/14/20 06:11 Magnesium 1.5 mg/dL (1.7-2.9) L 01/19/20 05:21 Ferritin 1777 ng/mL (26-388) H 01/02/20 04:20 Total Bilirubin 0.30 mg/dL (0.2-1.0) 01/19/20 05:21 AST 255 Units/L (15-37) H 01/19/20 05:21 ALT 296 Units/L (12-78) H 01/19/20 05:21 Alkaline Phosphatase 160 Units/L (46-116) H 01/19/20 05:21 Ammonia 15 umol/L (11-32) 12/30/19 23:32 C-Reactive Protein 186.60 mg/L (0-3.0) H 01/02/20 04:20 Total Protein 5.9 g/dL (6.4-8.2) L 01/19/20 05:21 Albumin 1.4 g/dL (3.4-5.0) L 01/19/20 05:21 Globulin 4.5 g/dL (2.5-4.5) 01/19/20 05:21 Albumin/Globulin Ratio 0.3 Ratio (1.1-2.1) L 01/19/20 05:21 Prealbumin 12.2 mg/dL (18-35.7) L 01/13/20 05:08 Triglycerides 41 mg/dL (0-150) 01/14/20 06:11 Specimen Type Catherized urine 12/31/19 00:07 Urine Color Yellow (YELLOW) 12/31/19 00:07 Urine Appearance Clear (CLEAR) 12/31/19 00:07 Urine pH 5.0 (5.0 - 8.0) 12/31/19 00:07 Ur Specific [place] 1.020 (1.000-1.030) 12/31/19 00:07 Urine Protein 2+ (NEGATIVE) 12/31/19 00:07 Urine Glucose (UA) Negative (NEGATIVE) 12/31/19 00:07 Urine Ketones 1+ (NEGATIVE) 12/31/19 00:07 Urine Occult Blood 2+ (NEGATIVE) 12/31/19 00:07 Urine Nitrite Negative (NEGATIVE) 12/31/19 00:07 Urine Bilirubin Negative (NEGATIVE) 12/31/19 00:07 Urine Urobilinogen Normal (NORMAL) 12/31/19 00:07 Ur Leukocyte Esterase Negative (NEGATIVE) 12/31/19 00:07 Urine RBC 0-2 /HPF (0-3) 12/31/19 00:07 Urine WBC 0-2 /HPF (0-5) 12/31/19 00:07 Ur Squamous Epith Cells Moderate /HPF (NEGATIVE) 12/31/19 00:07 Urine Bacteria Trace /HPF (NEGATIVE) 12/31/19 00:07 Ur Culture Indicated? No/not indicated 12/31/19 00:07 SARS-CoV-2 (PCR) Negative (NEGATIVE) 01/02/20 09:35 - Assessment and Plan 1: s/p laparotomy and permanent gastrostomy ( [place] ) . to advance feeding today to full feeding . - Problem Patient Problems: Patient Problems AMS (altered mental status) (Acute) R41.82 Hyperosmolality and hypernatremia (Acute) E87.0 Pneumonia (Acute) J18.9
[2020-01-19] MEDS: VIBRAMYCIN 100 MG in D5W 250 ML IV 250 ML IV SCH ×3 (09:54→20:45)
[2020-01-19] MEDS: ZYPREXA IM SCH (09:59)
[2020-01-19] MEDS: PULMICORT NEB TX 0.5 MG NEB SCH ×2 (10:52→20:27)
--- NOTE | 2020-01-19 12:13 | PCM.PROG ---
Progress Note - Progress Note for Day of Date of Exam: 01/19/20 - Subjective Subjective: IS BEING TREATED FOR BILATERAL PNEUMONIA, AMS, AND HYPERNATREMIA. HE HAS HAD HIS PEG TUBE REPLACED TWICE SINCE ADMISSION DUE TO HIM MANUALLY REMOVING IT. HE IS DAY 3 STATUS POST LAPAROTOMY AND CLOSURE OF GASTROSTOMY SIT ON THE ANTERIOR WALL OF THE STOMACH WELL CREATION OF A PERMANENT GASTROSTOMY. TODAY, HE IS LYING IN BED WITH EYES CLOSED ON MORNING ROUNDS. HE DOES OPEN EYES TO VERBAL STIMULI. ON EXAMINATION, HEART IS REGULAR IN RATE AND RHYTHM. BILATERAL LUNGS ARE NOTED WITH DIMINISHED LUNG SOUNDS THROUGHOUT. ABDOMEN IS ROUND, SOFT, AND NOTED WITH NORMAL BOWEL SOUNDS. HE DOES HAVE A GASTROSTOMY WITH COLOSTOMY BAG SEALING IN CASE OF LEAKAGE. STOMA IS PINK AND MOIST. HIS VITALS THIS MORNING ARE: 98.8-95-20-97%RA-148/65. LABS WERE OBTAINED. ABNORMAL LAB VALUES INCLUDE THE FOLLOWING: WBC 11.4, RBC 2.86, HGB 9.2, HCT 26.1, POTASSIUM 3.2, GLUCOSE 107, CALCIUM 8.3, MAGNESIUM 1.5, AST 255, ALT 296, ALK PHOS 160, TOTAL PROTEIN 5.9, ALBUMIN 1.4. BLOOD CULTURES ARE PEND ING. A CHEST XRAY WAS OBTAINED AND REVEALED: Persistent bilateral infiltrates/pneumonia. No significant change. WE WILL CONTINUE WITH IB ANTIBIOTICS, NEB TX, AND CURRENT PLAN OF CARE TODAY. OTHERWISE, WE WILL FOLLOW UP WITH AM LABS AND CONTINUE TO MONITOR. - Past Medical Family Social History Past Med/Fam/Surg Hx: No changes since H&P Allergies: Allergies No Known Drug Allergies Allergy (Verified 12/30/19 16:19) - Review of Systems ROS: No change since H&P - Vital Signs and I&O's Vital Signs: Temperature 98.8 F Pulse Rate [Brachial] 95 Pulse Rate 90 Respiratory Rate 20 Blood Pressure [Right Arm] 148/65 Blood Pressure 126/79 O2 Sat by Pulse Oximetry 97 Intake and Output: Intake & Output 01/17/20 01/18/20 01/19/20 01/20/20 11:59 11:59 11:59 11:59 Intake Total 3196 / 3196 2670 / 2670 1548 / 1548 Balance 3196 / 3196 2670 / 2670 1548 / 1548 - Physical Exam Oriented: Not Oriented Eyes: Normal Ear: Normal Nose: Normal Throat: Dry Respiratory: Normal (clear lung ) Cardiovascular: Normal : Normal Auscultation: Bowel Sounds: Decreased Tenderness: Other (soft abdomen . BS + ) Skin: Decreased Turgur Musculoskeletal: Motor Deficit Mood Description: Anxious Speech Pattern: Unclear - Laboratory and Diagnostics Result Diagrams: 01/19/20 05:21 01/19/20 05:21 Labs: 12/30/19 23:40 Blood Blood Culture - Final 12/30/19 23:32 Blood Blood Culture - Final 12/31/19 00:07 Urine,Clean Catch Urine Culture - Final Laboratory WBC 11.4 X10^3/uL (3.6-10.0) H 01/19/20 05:21 RBC 2.86 X10^6/uL (4.7-6.0) L 01/19/20 05:21 Hgb 9.2 g/dL (13.5-18.0) L 01/19/20 05:21 Hct 26.1 % (42.0-54.0) L 01/19/20 05:21 MCV 91.4 fL (80.0-100.0) 01/19/20 05:21 MCH 32.2 pg (27.0-34.0) 01/19/20 05:21 MCHC 35.2 g/dL (33.0-35.0) H 01/19/20 05:21 RDW 13.4 % (11.6-16.5) 01/19/20 05:21 Plt Count 213 X10^3/uL (150.0-450.0) 01/19/20 05:21 Plt Count Comment Adequate (ADEQUATE) 01/18/20 05:03 MPV 9.0 fL (7.4-11.0) 01/19/20 05:21 Neut % (Auto) 85.0 % (42.0-75.0) H 01/19/20 05:21 Lymph % (Auto) 6.4 % (21.0-51.0) L 01/19/20 05:21 [place] % (Auto) 6.1 % (0.0-13.0) 01/19/20 05:21 Eos % (Auto) 2.2 % (0.9-2.9) 01/19/20 05:21 Baso % (Auto) 0.3 % (0.2-1.0) 01/19/20 05:21 Neut # (Auto) 9.7 x10^3/uL (2.2-4.8) H 01/19/20 05:21 Lymph # (Auto) 0.7 X10^3/uL (1.3-2.9) L 01/19/20 05:21 [place] # (Auto) 0.7 x10^3/uL (0.3-0.8) 01/19/20 05:21 Eos # (Auto) 0.3 x10^3/uL (0.0-0.2) H 01/19/20 05:21 Baso # (Auto) 0.0 X10^3/uL (0.0-0.1) 01/19/20 05:21 Absolute Nucleated RBC 0.0 /100WBC 01/19/20 05:21 Total Counted 100 01/18/20 05:03 Neutrophils % (Manual) 95 % (39-76) H 01/18/20 05:03 Lymphocytes % (Manual) 4 % (13-43) L 01/18/20 05:03 Monocytes % (Manual) 3 % (4-9) L 01/17/20 05:24 Eosinophils % (Manual) 1 % (0-6) 01/18/20 05:03 Plt Morphology Comment Normal (NORMAL) 01/18/20 05:03 RBC Morphology Normal (NORMAL) 01/18/20 05:03 Sample Site [facility] 01/18/20 05:35 ABG pH 7.500 (7.35-7.45) H 01/18/20 05:35 ABG pCO2 40.0 mmHg (35.0-45.0) 01/18/20 05:35 ABG pO2 82.0 mmHg (80.0-100.0) 01/18/20 05:35 ABG HCO3 31.2 mmol/L (22-26) H* 01/18/20 05:35 ABG O2 Saturation 97.0 % (90-100) 01/18/20 05:35 ABG Base Excess 7.4 mmol/L (-2.0-2.0) H 01/18/20 05:35 [place] Test Na 01/18/20 05:35 A-a Gradient 18.0 mmHg 01/18/20 05:35 FiO2 21.0 01/18/20 05:35 Blood Gas Comments [place]alba abg well-mtf 01/18/20 05:35 Sodium 140 mmol/L (136-145) 01/19/20 05:21 Corrected Sodium TNP 01/19/20 05:21 Potassium 3.2 mmol/L (3.5-5.1) L 01/19/20 05:21 Chloride 104 mmol/L (98-107) 01/19/20 05:21 Carbon Dioxide 30.9 mmol/L (21-32) 01/19/20 05:21 BUN 13 mg/dL (7-18) 01/19/20 05:21 Creatinine 0.74 mg/dL (0.70-1.30) 01/19/20 05:21 Est GFR (MDRD) Af Amer > 60 (>60) 01/19/20 05:21 Est GFR (MDRD) Non-Af > 60 (>60) 01/19/20 05:21 Glucose 107 mg/dL (65-99) H 01/19/20 05:21 POC Glucose (mg/dL) 121 mg/dL (65-99) H 01/19/20 06:34 Lactic Acid 2.0 mmol/L (0.4-2.0) 01/02/20 08:51 Calcium 8.3 mg/dL (8.5-10.1) L 01/19/20 05:21 Corrected Calcium 10.4 mg/dL (8.5-10.1) H 01/19/20 05:21 Phosphorus 2.3 mg/dL (2.6-4.7) L 01/14/20 06:11 Magnesium 1.5 mg/dL (1.7-2.9) L 01/19/20 05:21 Ferritin 1777 ng/mL (26-388) H 01/02/20 04:20 Total Bilirubin 0.30 mg/dL (0.2-1.0) 01/19/20 05:21 AST 255 Units/L (15-37) H 01/19/20 05:21 ALT 296 Units/L (12-78) H 01/19/20 05:21 Alkaline Phosphatase 160 Units/L (46-116) H 01/19/20 05:21 Ammonia 15 umol/L (11-32) 12/30/19 23:32 C-Reactive Protein 186.60 mg/L (0-3.0) H 01/02/20 04:20 Total Protein 5.9 g/dL (6.4-8.2) L 01/19/20 05:21 Albumin 1.4 g/dL (3.4-5.0) L 01/19/20 05:21 Globulin 4.5 g/dL (2.5-4.5) 01/19/20 05:21 Albumin/Globulin Ratio 0.3 Ratio (1.1-2.1) L 01/19/20 05:21 Prealbumin 12.2 mg/dL (18-35.7) L 01/13/20 05:08 Triglycerides 41 mg/dL (0-150) 01/14/20 06:11 Specimen Type Catherized urine 12/31/19 00:07 Urine Color Yellow (YELLOW) 12/31/19 00:07 Urine Appearance Clear (CLEAR) 12/31/19 00:07 Urine pH 5.0 (5.0 - 8.0) 12/31/19 00:07 Ur Specific [place] 1.020 (1.000-1.030) 12/31/19 00:07 Urine Protein 2+ (NEGATIVE) 12/31/19 00:07 Urine Glucose (UA) Negative (NEGATIVE) 12/31/19 00:07 Urine Ketones 1+ (NEGATIVE) 12/31/19 00:07 Urine Occult Blood 2+ (NEGATIVE) 12/31/19 00:07 Urine Nitrite Negative (NEGATIVE) 12/31/19 00:07 Urine Bilirubin Negative (NEGATIVE) 12/31/19 00:07 Urine Urobilinogen Normal (NORMAL) 12/31/19 00:07 Ur Leukocyte Esterase Negative (NEGATIVE) 12/31/19 00:07 Urine RBC 0-2 /HPF (0-3) 12/31/19 00:07 Urine WBC 0-2 /HPF (0-5) 12/31/19 00:07 Ur Squamous Epith Cells Moderate /HPF (NEGATIVE) 12/31/19 00:07 Urine Bacteria Trace /HPF (NEGATIVE) 12/31/19 00:07 Ur Culture Indicated? No/not indicated 12/31/19 00:07 SARS-CoV-2 (PCR) Negative (NEGATIVE) 01/02/20 09:35
[2020-01-19] MEDS: D5W 1000 ML IV 1,000 ML IV SCH (14:28)
[2020-01-19] MEDS: CLINIMIX 5 %/20 % 1,000 ML with MVI INJ (ADULT) 10 ML, TPN ELECTROLYTES 20 ML, TRACE EL... IV SCH ×12 (17:41→22:15)
[2020-01-20] MEDS: DUONEB 0.5 MG/3 MG (3 mL) NEB SCH ×5 (01:07→12:00)
[2020-01-20] MEDS: ZOSYN VIAL 4.5 GRAMS 4.5 G in NS 100 ML IV + SPIKE MINIBAG* 100 ML IV SCH ×2 (05:50→15:48)
--- NOTE | 2020-01-20 06:09 | RAD ---
HISTORYPNEUMONIASTUDYCHEST, 1 [id number] view of the chestFINDINGSCardiac and mediastinal contours appear normal. Right subclavian central line in good position. Similar appearance of multifocal bilateral airspace disease. No pleural effusion or pneumothorax.IMPRESSIONNo significant change.Electronically signed by: Mainor Mayers (Jan 20, 2020 06:07:52)
[2020-01-20 06:37] LABS: BASOPHILS % (AUTO) 0.4 % (0.2-1.0); EOSINOPHILS # (AUTO) 0.5 x10^3/uL (0.0-0.2); EOSINOPHILS % (AUTO) 5.5 % (0.9-2.9); HEMATOCRIT 29.5 % (42.0-54.0); HEMOGLOBIN 10.2 g/dL (13.5-18.0); LYMPHOCYTES # (AUTO) 0.8 X10^3/uL (1.3-2.9); LYMPHOCYTES % (AUTO) 9.5 % (21.0-51.0); MEAN CORPUSCULAR HEMOGLOBIN 32.1 pg (27.0-34.0); MEAN CORPUSCULAR HGB CONC 34.5 g/dL (33.0-35.0); MEAN PLATELET VOLUME 9.3 fL (7.4-11.0); MONOCYTES # (AUTO) 0.6 x10^3/uL (0.3-0.8); MONOCYTES % (AUTO) 6.4 % (0.0-13.0); NEUTROPHILS # (AUTO) 6.9 x10^3/uL (2.2-4.8); NEUTROPHILS % (AUTO) 78.2 % (42.0-75.0); PLATELET COUNT 199 X10^3/uL (150.0-450.0); RED BLOOD COUNT 3.17 X10^6/uL (4.7-6.0); RED CELL DISTRIBUTION WIDTH 13.9 % (11.6-16.5); WHITE BLOOD COUNT 8.9 X10^3/uL (3.6-10.0)
[2020-01-20 06:50] LABS: ALANINE AMINOTRANSFERASE 378 Units/L (12-78); ALBUMIN 1.5 g/dL (3.4-5.0); ALKALINE PHOSPHATASE 226 Units/L (46-116); ASPARTATE AMINO TRANSFERASE 219 Units/L (15-37); BLOOD UREA NITROGEN 15 mg/dL (7-18); CALCIUM 8.2 mg/dL (8.5-10.1); CARBON DIOXIDE 30.8 mmol/L (21-32); CHLORIDE 105 mmol/L (98-107); COR CA(FOR HYPOALB) 10.2 mg/dL (8.5-10.1); COR NA(FOR HYPERGLY) 141 mmol/L (136-145); CREATININE 0.67 mg/dL (0.70-1.30); SODIUM 140 mmol/L (136-145); TOTAL PROTEIN 6.3 g/dL (6.4-8.2); eGFR NON BLACK RACES > 60 (>60)
[2020-01-20] MEDS: CLINIMIX 5 %/20 % 1,000 ML with MVI INJ (ADULT) 10 ML, TPN ELECTROLYTES 20 ML, TRACE EL... IV SCH ×12 (07:48→11:38)
[2020-01-20 09:17] LABS: AMYLASE 109 Units/L (25-115); LIPASE 291 Units/L (73-393)
[2020-01-20] MEDS: PULMICORT NEB TX 0.5 MG NEB SCH (10:37)
[2020-01-20] MEDS: DILAUDID INJ IVP PRN (13:10)
[2020-01-20] MEDS: ZYPREXA IM SCH (14:34)
[2020-01-20 14:37] VITALS: BP 166/84
[2020-01-20] MEDS: D5W 1000 ML IV 1,000 ML IV SCH (15:46)
[2020-01-20] MEDS: ATIVAN INJ 2 MG VIAL IVP PRN (16:44)
== END 2020-01-20 17:50 | DRG 982 ==
LOC: MED/SURG 19:03 → ICU 12-31 00:20 → MED/SURG 01-03 14:38
PROVIDERS: ADMIT Internal Medicine; ATTEND Internal Medicine
DX: K94.29 Other complications of gastrostomy; E86.0 Dehydration; R13.19 Other dysphagia; R62.7 Adult failure to thrive; Z20.828 Contact with and (suspected) exposure to other viral communicable diseases; E87.8 Other disorders of electrolyte and fluid balance, not elsewhere classified; K44.9 Diaphragmatic hernia without obstruction or gangrene; I10 Essential (primary) hypertension; J18.9 Pneumonia, unspecified organism; F79 Unspecified intellectual disabilities; Z86.73 Personal history of transient ischemic attack (TIA), and cerebral infarction without residual deficits; R40.4 Transient alteration of awareness; E46 Unspecified protein-calorie malnutrition; K29.70 Gastritis, unspecified, without bleeding; F44.89 Other dissociative and conversion disorders; F20.9 Schizophrenia, unspecified; R26.81 Unsteadiness on feet; E87.0 Hyperosmolality and hypernatremia; Z74.01 Bed confinement status; G40.909 Epilepsy, unspecified, not intractable, without status epilepticus